=== PATIENT | male | born 1960 | race Caucasian/White ===

== ENCOUNTER → 2016-09-03 | Outpatient (CLI) | payer BC ==
[2016-09-03 10:55] LABS: CHLORIDE,CL 98 mmol/L (98-110); SODIUM,NA 131 mmol/L (136-146)
== END ==
LOC: MW.CHRC 09:50
PROVIDERS: ATTEND Family Medicine
DX: L03.115 Cellulitis of right lower limb (principal); R39.15 Urgency of urination; R11.2 Nausea with vomiting, unspecified
CPT/HCPCS: 36415; 80053; 81001; 85025; 87086; 87804

== ENCOUNTER 2017-08-13 17:08 | Inpatient (IN) | payer BC ==
[2017-08-13] MEDS ORDERED: Sodium Chloride 0.9% 10 ML Syringe FLUSH PRN (17:25)
[2017-08-13] MEDS ORDERED: Albuterol/Ipratropium 3.0-0.5 MG/3 ML Neb Soln NEB ONE (17:25)
[2017-08-13] MEDS ORDERED: Sodium Chloride 0.9% 2.5 ML Syringe FLUSH PRN (17:25)
--- NOTE | 2017-08-13 17:28 | EDM.PDOC ---
ED HPI GENERAL MEDICAL PROBLEM - General Chief Complaint: Respiratory Problem Stated Complaint: UPPER RESPIRATORY ISSUES Time Seen by Provider: 08/13/17 17:21 - History of Present Illness INITIAL COMMENTS - FREE TEXT/NARRATIVE: HISTORY AND PHYSICAL: History of present illness: Patient's 57-year-old white male presented internal respiratory tract infection over the last 7-10 days he states he had a sinus infection cough congestion and mild shortness of breath he has a scheduled appointment on Friday he denies fever chills chest pain nausea vomiting or other complaints patient is currently not a smoker but does have a [id number] history. Review of systems: As per history of present illness and below otherwise all systems reviewed and negative. Past medical history: As per history of present illness and as reviewed below otherwise noncontributory. Surgical history: As per history of present illness and as reviewed below otherwise noncontributory. Social history: No reported history of drug or alcohol abuse. Family history: As per history of present illness and as reviewed below otherwise noncontributory. Physical exam: HEENT: Atraumatic, normocephalic, pupils reactive, negative for conjunctival pallor or scleral icterus, mucous membranes moist, throat clear, neck supple, nontender, trachea midline. Congestion noted Lungs: Diminished slightly coarse, breath sounds equal bilaterally, chest nontender. Heart: S1S2, regular, negative for clicks, rubs, or JVD. Abdomen: Soft, nondistended, nontender. Negative for masses or hepatosplenomegaly. Negative for costovertebral tenderness. Pelvis: Stable nontender. Genitourinary: Deferred. Rectal: Deferred. Extremities: Atraumatic, negative for cords or calf pain. Neurovascular unremarkable. Neuro: Awake, alert, oriented. Cranial nerves II through XII unremarkable. Cerebellum unremarkable. Motor and sensory unremarkable throughout. Exam nonfocal. Diagnostics: CBC CMP ABG blood culture 2 influenza screen chest x-ray Therapeutics: Albuterol ipratropium nebulizer Impression: #1 sinusitis #2 pneumonitis Definitive disposition and diagnosis as appropriate pending reevaluation and review of above. headaches Pain Score (Numeric/FACES): 2 - Related Data Allergies Allergy/AdvReac Type Severity Reaction Status Date / Time No Known Allergies Allergy Verified 08/13/17 17:12 Home Meds: Home Meds amLODIPine [Norvasc] 5 mg PO DAILY 07/04/14 [History] Past Medical History HEENT History: Reports: None Cardiovascular History: Reports: Hypertension Respiratory History: Reports: None Gastrointestinal History: Reports: None Genitourinary History: Reports: None Musculoskeletal History: Reports: None Neurological History: Reports: None Psychiatric History: Reports: None Endocrine/Metabolic History: Reports: None Hematologic History: Reports: None Immunologic History: Reports: None Oncologic (Cancer) History: Reports: None Dermatologic History: Reports: None - Past Surgical History Head Surgeries/Procedures: Reports: None HEENT Surgical History: Reports: None Cardiovascular Surgical History: Reports: None Respiratory Surgical History: Reports: None GI Surgical History: Reports: None Male Surgical History: Reports: None Endocrine Surgical History: Reports: None Neurological Surgical History: Reports: None Musculoskeletal Surgical History: Reports: None Oncologic Surgical History: Reports: None Dermatological Surgical History: Reports: None Social & Family History - Family History Family Medical History: Noncontributory - Tobacco Use Smoking Status *Q: Never Smoker Years of Tobacco use: 30 Second Hand Smoke Exposure: No - Caffeine Use Caffeine Use: Reports: None - Recreational Drug Use Recreational Drug Use: No ED ROS GENERAL - Review of Systems Review Of Systems: ROS reveals no pertinent complaints other than HPI. ED EXAM, GENERAL - Physical Exam Exam: See Below (See dictation) Course - Vital Signs Last Recorded V/S: Last Vital Signs Temp 36.2 C 08/13/17 17:13 Pulse 92 08/13/17 17:13 Resp 20 08/13/17 17:13 BP 129/68 08/13/17 17:13 Pulse Ox 92 L 08/13/17 17:13 - Orders/Labs/Meds Orders: Active Orders 24 hr Category Date Time Status RT Aerosol Therapy [RC] ASDIRECTED Care 08/13/17 17:25 Active Chest 1V Frontal [CR] Stat Exams 08/13/17 17:24 Taken CULTURE BLOOD [BC] Stat Lab 08/13/17 17:38 Received CULTURE BLOOD [BC] Stat Lab 08/13/17 18:15 Received INFLUENZA A+B AG SCREEN [RM] Stat Lab 08/13/17 17:39 Ordered LACTATE WITH REFLEX [BG] Stat Lab 08/13/17 18:26 Ordered Levofloxacin/Dextrose 5%-Water [Levaquin in D5W 750 MG/ Med 08/13/17 18:26 Ordered 150 ML] 750 mg Premix Bag 1 bag IV ONETIME Sodium Chloride 0.9% [Saline Flush] Med 08/13/17 17:25 Active 10 ml FLUSH ASDIRECTED PRN Sodium Chloride 0.9% [Saline Flush] Med 08/13/17 17:25 Active 2.5 ml FLUSH ASDIRECTED PRN Blood Culture x2 Reflex Set [OM.PC] Stat Oth 08/13/17 17:24 Ordered Saline Lock Insert [OM.PC] Stat Oth 08/13/17 17:25 Ordered Medication Orders Levofloxacin/Dextrose 750 mg/ (Premix) 150 mls @ 100 mls/hr IV ONETIME ONE Stop: 08/13/17 19:55 Sodium Chloride (Saline Flush) 10 ml FLUSH ASDIRECTED PRN PRN Reason: Keep Vein Open Sodium Chloride (Saline Flush) 2.5 ml FLUSH ASDIRECTED PRN PRN Reason: Keep Vein Open Labs: Laboratory Tests 08/13/17 08/13/17 08/13/17 Range/Units 17:38 17:38 17:54 WBC 13.88 H (4.0-11.0) K/uL RBC 4.44 L (4.50-5.90) M/uL Hgb 14.3 (13.0-17.0) g/dL Hct 40.8 (38.0-50.0) % MCV 91.9 (80.0-98.0) fL MCH 32.2 H (27.0-32.0) pg MCHC 35.0 (31.0-37.0) g/dL RDW Std Deviation 45.7 (28.0-62.0) fl RDW Coeff of Ba 14 (11.0-15.0) % Plt Count 266 (150-400) K/uL MPV 9.50 (7.40-12.00) fL Neut % (Auto) 76.6 (48.0-80.0) % Lymph % (Auto) 14.2 L (16.0-40.0) % Hartley % (Auto) 5.4 (0.0-15.0) % Eos % (Auto) 3.4 (0.0-7.0) % Baso % (Auto) 0.4 (0.0-1.5) % Neut # (Auto) 10.6 H (1.4-5.7) K/uL Lymph # (Auto) 2.0 (0.6-2.4) K/uL Hartley # (Auto) 0.8 (0.0-0.8) K/uL Eos # (Auto) 0.5 (0.0-0.7) K/uL Baso # (Auto) 0.1 (0.0-0.1) K/uL Nucleated RBC % 0.0 /100WBC Nucleated RBCs # 0 K/uL ABG pH 7.464 H (7.35-7.45) ABG pCO2 37 (35-45) mmHG ABG pO2 55 L (75-100) mmHG ABG HCO3 27 H (22-26) mEq/L ABG Total CO2 23.5 ABG Base Excess 3.1 H (-2.0-2.0) Sodium 139 (136-148) mmol/L Potassium 4.2 (3.5-5.1) mmol/L Chloride 102 (98-107) mmol/L Carbon Dioxide 27.9 (21.0-32.0) mmol/L BUN 18 (7.0-18.0) mg/dL Creatinine 0.9 (0.8-1.3) mg/dL Est Cr Clr Drug Dosing 80.73 mL/min Estimated GFR (MDRD) > 60.0 ml/min Glucose 95 (74-106) mg/dL Calcium 9.3 (8.5-10.1) mg/dL Total Bilirubin 0.4 (0.2-1.0) mg/dL AST 29 (15-37) IU/L ALT 39 (14-63) IU/L Alkaline Phosphatase 78 (46-116) U/L Total Protein 7.6 (6.4-8.2) g/dL Albumin 3.0 L (3.4-5.0) g/dL Globulin 4.6 H (2.0-3.5) g/dL Albumin/Globulin Ratio 0.7 L (1.3-2.8) Meds: Medications Generic Name Dose Route Start Last Admin Trade Name Freq PRN Reason Stop Dose Admin Levofloxacin/Dextrose 750 mg/ 150 mls @ 100 mls/hr 08/13/17 18:26 Premix IV 08/13/17 19:55 ONETIME ONE Sodium Chloride 10 ml 08/13/17 17:25 Saline Flush FLUSH ASDIRECTED PRN Keep Vein Open Sodium Chloride 2.5 ml 08/13/17 17:25 Saline Flush FLUSH ASDIRECTED PRN Keep Vein Open Discontinued Medications Generic Name Dose Route Start Last Admin Trade Name Freq PRN Reason Stop Dose Admin Albuterol/Ipratropium 3 ml 08/13/17 17:25 08/13/17 17:58 Duoneb 3.0-0.5 Mg/3 Ml NEB 08/13/17 17:26 3 ml ONETIME ONE Administration Departure - Departure Time of Disposition: 18:31 Disposition: Admitted As Inpatient 65 Condition: Good Clinical Impression: Pneumonia, Hypoxemia - Discharge Information Referrals: Den Rincon MD [Primary Care Provider] - Forms: ED Department Discharge - My Orders Last 24 Hours: My Active Orders 08/13/17 17:24 Chest 1V Frontal [CR] Stat Blood Culture x2 Reflex Set [OM.PC] Stat 08/13/17 17:25 RT Aerosol Therapy [RC] ASDIRECTED Sodium Chloride 0.9% [Saline Flush] 10 ml FLUSH ASDIRECTED PRN Sodium Chloride 0.9% [Saline Flush] 2.5 ml FLUSH ASDIRECTED PRN Saline Lock Insert [OM.PC] Stat 08/13/17 17:38 CULTURE BLOOD [BC] Stat 08/13/17 17:39 INFLUENZA A+B AG SCREEN [RM] Stat 08/13/17 18:15 CULTURE BLOOD [BC] Stat 08/13/17 18:26 LACTATE WITH REFLEX [BG] Stat Levofloxacin/Dextrose 5%-Water [Levaquin in D5W 750 MG/150 ML] 750 mg Premix Bag 1 bag IV ONETIME - Assessment/Plan Last 24 Hours: My Active Orders 08/13/17 17:24 Chest 1V Frontal [CR] Stat Blood Culture x2 Reflex Set [OM.PC] Stat 08/13/17 17:25 RT Aerosol Therapy [RC] ASDIRECTED Sodium Chloride 0.9% [Saline Flush] 10 ml FLUSH ASDIRECTED PRN Sodium Chloride 0.9% [Saline Flush] 2.5 ml FLUSH ASDIRECTED PRN Saline Lock Insert [OM.PC] Stat 08/13/17 17:38 CULTURE BLOOD [BC] Stat 08/13/17 17:39 INFLUENZA A+B AG SCREEN [RM] Stat 08/13/17 18:15 CULTURE BLOOD [BC] Stat 08/13/17 18:26 LACTATE WITH REFLEX [BG] Stat Levofloxacin/Dextrose 5%-Water [Levaquin in D5W 750 MG/150 ML] 750 mg Premix Bag 1 bag IV ONETIME
[2017-08-13 18:09] LABS: CHLORIDE,CL 102 mmol/L (98-107); SODIUM,NA 139 mmol/L (136-148)
[2017-08-13] MEDS ORDERED: Levofloxacin/Dextrose 5%-Water 750 MG in Premix Bag 1 BAG IV ONE (18:26)
--- NOTE | 2017-08-13 23:35 | PCM.HP ---
H&P History of Present Illness - General Date of Service: 08/14/17 Admit Problem/Dx: Admission Diagnosis/Problem Admission Diagnosis/Problem Pneumonia Patient 57 y old man presented to hospital due to SOB and raspy sounds in his chest.His symptoms started 2 weeks ago when he had chills and body aches and low grade fever for 2 days. He took Mucinex and Tylenol and his symptoms improved ,but still persisted.Last week patient had maxillary and frontal sinusitis currently still c/o nasal congestion. Has cough productive of green phlegm , trouble breathing a, no reports of fever and chills right now. - History of Present Illness Duration of Symptoms: Reports: Week(s): headaches Pain Score (Numeric/FACES): 2 - Related Data Allergies/Adverse Reactions: Allergies Allergy/AdvReac Type Severity Reaction Status Date / Time No Known Allergies Allergy Verified 08/13/17 17:12 Home Medications: Home Meds amLODIPine [Norvasc] 5 mg PO DAILY 07/04/14 [History] Past Medical History HEENT History: Reports: None Cardiovascular History: Reports: Hypertension Respiratory History: Reports: None Gastrointestinal History: Reports: None Genitourinary History: Reports: None Musculoskeletal History: Reports: None Neurological History: Reports: None Psychiatric History: Reports: None Endocrine/Metabolic History: Reports: None Hematologic History: Reports: None Immunologic History: Reports: None Oncologic (Cancer) History: Reports: None Dermatologic History: Reports: None - Past Surgical History Head Surgeries/Procedures: Reports: None HEENT Surgical History: Reports: None Cardiovascular Surgical History: Reports: None Respiratory Surgical History: Reports: None GI Surgical History: Reports: None Male Surgical History: Reports: None Endocrine Surgical History: Reports: None Neurological Surgical History: Reports: None Musculoskeletal Surgical History: Reports: None Oncologic Surgical History: Reports: None Dermatological Surgical History: Reports: None Social & Family History - Family History Family Medical History: Noncontributory - Tobacco Use Smoking Status *Q: Former Smoker Years of Tobacco use: 30 Used Tobacco, but Quit: Yes Month/Year Tobacco Last Used: 18 months ago Second Hand Smoke Exposure: No - Caffeine Use Caffeine Use: Reports: None - Alcohol Use Days Per Week of Alcohol Use: 2 Number of Drinks Per Day: 2 Total Drinks Per Week: 4 Date of Last Drink: 08/07/17 - Recreational Drug Use Recreational Drug Use: No H&P Review of Systems - Review of Systems: Review Of Systems: See Below General: Reports: No Symptoms HEENT: Reports: Sinus Congestion Pulmonary: Reports: Shortness of Breath, Wheezing, Cough, Sputum (green) Cardiovascular: Reports: No Symptoms Gastrointestinal: Reports: No Symptoms Genitourinary: Reports: No Symptoms Musculoskeletal: Reports: No Symptoms Skin: Reports: No Symptoms Psychiatric: Reports: No Symptoms Neurological: Reports: No Symptoms Hematologic/Lymphatic: Reports: No Symptoms Immunologic: Reports: No Symptoms Exam - Exam Exam: See Below - Vital Signs Vital Signs: Last Vital Signs Temp 99.3 F 08/13/17 19:40 Pulse 93 08/13/17 19:40 Resp 20 08/13/17 19:40 BP 147/90 H 08/13/17 19:40 Pulse Ox 93 L 08/13/17 19:40 Weight: 286 lb 8 oz - Exam General: Alert, Oriented HEENT: Conjunctiva Clear Neck: Supple, Trachea Midline Cardiovascular: Regular Rate, Regular Rhythm, Normal S1, Normal S2 GI/Abdominal Exam: Normal Bowel Sounds, Soft, Non-Tender, No Organomegaly, No Distention, No Abnormal Bruit Back Exam: Normal Inspection Extremities: Normal Inspection Skin: Warm, Dry, Intact Neuro Extensive - Mental Status: Alert, Oriented x3 - Patient Data Lab Results Last 24 hrs: Laboratory Results - last 24 hr 08/13/17 08/13/17 08/13/17 Range/Units 17:38 17:38 17:38 WBC 13.88 H (4.0-11.0) K/uL RBC 4.44 L (4.50-5.90) M/uL Hgb 14.3 (13.0-17.0) g/dL Hct 40.8 (38.0-50.0) % MCV 91.9 (80.0-98.0) fL MCH 32.2 H (27.0-32.0) pg MCHC 35.0 (31.0-37.0) g/dL RDW Std Deviation 45.7 (28.0-62.0) fl RDW Coeff of Ba 14 (11.0-15.0) % Plt Count 266 (150-400) K/uL MPV 9.50 (7.40-12.00) fL Neut % (Auto) 76.6 (48.0-80.0) % Lymph % (Auto) 14.2 L (16.0-40.0) % Fergus % (Auto) 5.4 (0.0-15.0) % Eos % (Auto) 3.4 (0.0-7.0) % Baso % (Auto) 0.4 (0.0-1.5) % Neut # (Auto) 10.6 H (1.4-5.7) K/uL Lymph # (Auto) 2.0 (0.6-2.4) K/uL Fergus # (Auto) 0.8 (0.0-0.8) K/uL Eos # (Auto) 0.5 (0.0-0.7) K/uL Baso # (Auto) 0.1 (0.0-0.1) K/uL Nucleated RBC % 0.0 /100WBC Nucleated RBCs # 0 K/uL ABG pH (7.35-7.45) ABG pCO2 (35-45) mmHG ABG pO2 (75-100) mmHG ABG HCO3 (22-26) mEq/L ABG Total CO2 ABG Base Excess (-2.0-2.0) Lactate 0.6 (0.20-2.00) mmol/L Sodium 139 (136-148) mmol/L Potassium 4.2 (3.5-5.1) mmol/L Chloride 102 (98-107) mmol/L Carbon Dioxide 27.9 (21.0-32.0) mmol/L BUN 18 (7.0-18.0) mg/dL Creatinine 0.9 (0.8-1.3) mg/dL Est Cr Clr Drug Dosing 80.73 mL/min Estimated GFR (MDRD) > 60.0 ml/min Glucose 95 (74-106) mg/dL Calcium 9.3 (8.5-10.1) mg/dL Total Bilirubin 0.4 (0.2-1.0) mg/dL AST 29 (15-37) IU/L ALT 39 (14-63) IU/L Alkaline Phosphatase 78 (46-116) U/L B-Natriuretic Peptide (<100) PG/ML Total Protein 7.6 (6.4-8.2) g/dL Albumin 3.0 L (3.4-5.0) g/dL Globulin 4.6 H (2.0-3.5) g/dL Albumin/Globulin Ratio 0.7 L (1.3-2.8) 08/13/17 08/13/17 Range/Units 17:38 17:54 WBC (4.0-11.0) K/uL RBC (4.50-5.90) M/uL Hgb (13.0-17.0) g/dL Hct (38.0-50.0) % MCV (80.0-98.0) fL MCH (27.0-32.0) pg MCHC (31.0-37.0) g/dL RDW Std Deviation (28.0-62.0) fl RDW Coeff of Ba (11.0-15.0) % Plt Count (150-400) K/uL MPV (7.40-12.00) fL Neut % (Auto) (48.0-80.0) % Lymph % (Auto) (16.0-40.0) % Fergus % (Auto) (0.0-15.0) % Eos % (Auto) (0.0-7.0) % Baso % (Auto) (0.0-1.5) % Neut # (Auto) (1.4-5.7) K/uL Lymph # (Auto) (0.6-2.4) K/uL Fergus # (Auto) (0.0-0.8) K/uL Eos # (Auto) (0.0-0.7) K/uL Baso # (Auto) (0.0-0.1) K/uL Nucleated RBC % /100WBC Nucleated RBCs # K/uL ABG pH 7.464 H (7.35-7.45) ABG pCO2 37 (35-45) mmHG ABG pO2 55 L (75-100) mmHG ABG HCO3 27 H (22-26) mEq/L ABG Total CO2 23.5 ABG Base Excess 3.1 H (-2.0-2.0) Lactate (0.20-2.00) mmol/L Sodium (136-148) mmol/L Potassium (3.5-5.1) mmol/L Chloride (98-107) mmol/L Carbon Dioxide (21.0-32.0) mmol/L BUN (7.0-18.0) mg/dL Creatinine (0.8-1.3) mg/dL Est Cr Clr Drug Dosing mL/min Estimated GFR (MDRD) ml/min Glucose (74-106) mg/dL Calcium (8.5-10.1) mg/dL Total Bilirubin (0.2-1.0) mg/dL AST (15-37) IU/L ALT (14-63) IU/L Alkaline Phosphatase (46-116) U/L B-Natriuretic Peptide 17 (<100) PG/ML Total Protein (6.4-8.2) g/dL Albumin (3.4-5.0) g/dL Globulin (2.0-3.5) g/dL Albumin/Globulin Ratio (1.3-2.8) Result Diagrams: 08/14/17 05:30 08/14/17 05:30 Yash Results Last 24 hrs: Microbiology 08/13/17 17:39 Influenza Type A Antigen Screen - Final Nasopharyngeal Swab NEGATIVE INFLUENZA A VIRUS AG Influenza Type B Antigen Screen - Final NEGATIVE INFLUENZA B VIRUS AG Imaging Impressions Last 24 hrs: CXr : FRANCIS infiltrate EKG INTERPRETATION EKG Date: 08/13/17 Rhythm: NSR - Problem List (1) Community acquired bacterial pneumonia SNOMED Code(s): 485548989, 135541948 ICD Code: J15.9 - UNSPECIFIED BACTERIAL PNEUMONIA Status: Acute Current Visit: Yes (2) History of tobacco use SNOMED Code(s): 2632649945541 ICD Code: Z87.891 - PERSONAL HISTORY OF NICOTINE DEPENDENCE Status: Acute Current Visit: Yes (3) Morbid obesity SNOMED Code(s): 559987083, 98590634809986 ICD Code: E66.01 - MORBID (SEVERE) OBESITY DUE TO EXCESS CALORIES Status: Acute Current Visit: Yes (4) Wheezing SNOMED Code(s): 23095014 ICD Code: R06.2 - WHEEZING Status: Acute Current Visit: Yes (5) History of tobacco abuse SNOMED Code(s): 7455086415700, 7547406687170 ICD Code: Z87.891 - PERSONAL HISTORY OF NICOTINE DEPENDENCE Status: Acute Current Visit: Yes (6) Acute respiratory failure with hypoxia SNOMED Code(s): 47610377, 214817052 ICD Code: J96.01 - ACUTE RESPIRATORY FAILURE WITH HYPOXIA Status: Acute Current Visit: Yes (7) Nasal congestion SNOMED Code(s): 34236294 ICD Code: R09.81 - NASAL CONGESTION Status: Acute Current Visit: Yes Problem List Initiated/Reviewed/Updated: Yes Orders Last 24hrs: Active Orders 24 hr Category Date Time Status Patient Status [ADT] Stat ADT 08/13/17 18:50 Active EKG Documentation Completion [RC] STAT Care 08/13/17 18:32 Active RT Aerosol Therapy [RC] ASDIRECTED Care 08/13/17 17:25 Active Chest 1V Frontal [CR] Stat Exams 08/13/17 17:24 Taken CULTURE BLOOD [BC] Stat Lab 08/13/17 17:38 Received CULTURE BLOOD [BC] Stat Lab 08/13/17 18:15 Received INFLUENZA A+B AG SCREEN [RM] Stat Lab 08/13/17 17:39 Ordered Sodium Chloride 0.9% [Saline Flush] Med 08/13/17 17:25 Active 10 ml FLUSH ASDIRECTED PRN Sodium Chloride 0.9% [Saline Flush] Med 08/13/17 17:25 Active 2.5 ml FLUSH ASDIRECTED PRN Blood Culture x2 Reflex Set [OM.PC] Stat Oth 08/13/17 17:24 Ordered Saline Lock Insert [OM.PC] Stat Oth 08/13/17 17:25 Ordered Medication Orders Sodium Chloride (Saline Flush) 10 ml FLUSH ASDIRECTED PRN PRN Reason: Keep Vein Open Sodium Chloride (Saline Flush) 2.5 ml FLUSH ASDIRECTED PRN PRN Reason: Keep Vein Open A/P ACUTE HYPOXIC RESPIRATORY FAILURE COMMUNITY ACQUIRED PNEUMONIA Morbid obesity WHEEZING -LIKELY COPD NASAL CONGESTION PLAN WILL ADMIT PATIENT TO MEDICAL FLOOR , WILL START PATIENT ON LEVOFLOXACIN 750 MG IV Q 24 H , DUONEB NEBULIZER TREATMENT 2 PUFF INH Q 4H PRN FOR SOB, WHEEZING , SOLUMEDROL 40 MG IV Q 12H , ADVAIR 250/50 2 PUFFS INH Q 12H , F/UP BLOOD CULTURE, SPUTUM CULTURE AND GRAM STAIN, FLUTICASONE NASAL SPRAY FOR NASAL CONGESTION
[2017-08-14] MEDS ORDERED: Temazepam 15 MG Cap PO PRN (05:39)
[2017-08-14] MEDS ORDERED: Albuterol/Ipratropium 3.0-0.5 MG/3 ML Neb Soln NEB PRN (05:46)
[2017-08-14] MEDS: Hydrocortisone Sodium Succinate 100 MG/2 ML SDV IVPUSH SCH ×2 (06:20→18:05)
[2017-08-14] MEDS: Enoxaparin 40 MG/0.4 ML Syringe SUBCUT SCH (06:22)
[2017-08-14 06:27] LABS: CHLORIDE,CL 105 mmol/L (98-107); SODIUM,NA 140 mmol/L (136-148)
[2017-08-14] MEDS: Fluticasone/Salmeterol 250-50 MCG Inhalation Powder 14/Diskus INH SCH ×2 (07:01→20:45)
[2017-08-14] MEDS: Fluticasone Propionate Nasal Spray 16 GM Bottle NASBOTH SCH (08:50)
[2017-08-14] MEDS: amLODIPine 5 MG Tab PO SCH (08:52)
--- NOTE | 2017-08-14 08:58 | PCM.PN ---
- General Info Date of Service: 08/14/17 Admission Dx/Problem (Free Text): Admission Diagnosis/Problem Admission Diagnosis/Problem Pneumonia Subjective Update: Feeling better this morning, still feeling congested, productive cough with yellow to green phlegm. No chest pain. No dyspnea. Still requiring oxygen. Functional Status: Reports: Pain Controlled, Tolerating Diet, Ambulating, Urinating - Review of Systems General: Reports: Malaise. Denies: Fever, Weakness HEENT: Reports: Sinus Congestion, Rhinitis. Denies: Headaches, Sore Throat, Visual Changes Pulmonary: Reports: Cough, Sputum. Denies: Shortness of Breath, Hemoptysis, Wheezing Cardiovascular: Reports: No Symptoms. Denies: Chest Pain, Palpitations Gastrointestinal: Reports: No Symptoms. Denies: Abdominal Pain, Diarrhea, Nausea, Vomiting Genitourinary: Reports: No Symptoms. Denies: Dysuria, Frequency Musculoskeletal: Reports: No Symptoms Skin: Reports: No Symptoms Neurological: Reports: No Symptoms Psychiatric: Reports: No Symptoms - Patient Data Vitals - Most Recent: Last Vital Signs Temp 98.2 F 08/14/17 08:38 Pulse 73 08/14/17 08:38 Resp 18 08/14/17 08:38 BP 135/75 08/14/17 08:52 Pulse Ox 92 L 08/14/17 08:38 Weight - Most Recent: 129.954 kg I&O - Last 24 Hours: Intake & Output 08/13/17 08/14/17 08/14/17 22:59 06:59 14:59 Intake Total 250 Output Total 300 Balance -50 Lab Results Last 24 Hours: Laboratory Results - last 24 hr 08/13/17 08/13/17 08/13/17 Range/Units 17:38 17:38 17:38 WBC 13.88 H (4.0-11.0) K/uL RBC 4.44 L (4.50-5.90) M/uL Hgb 14.3 (13.0-17.0) g/dL Hct 40.8 (38.0-50.0) % MCV 91.9 (80.0-98.0) fL MCH 32.2 H (27.0-32.0) pg MCHC 35.0 (31.0-37.0) g/dL RDW Std Deviation 45.7 (28.0-62.0) fl RDW Coeff of Ba 14 (11.0-15.0) % Plt Count 266 (150-400) K/uL MPV 9.50 (7.40-12.00) fL Neut % (Auto) 76.6 (48.0-80.0) % Lymph % (Auto) 14.2 L (16.0-40.0) % [place] % (Auto) 5.4 (0.0-15.0) % Eos % (Auto) 3.4 (0.0-7.0) % Baso % (Auto) 0.4 (0.0-1.5) % Neut # (Auto) 10.6 H (1.4-5.7) K/uL Lymph # (Auto) 2.0 (0.6-2.4) K/uL [place] # (Auto) 0.8 (0.0-0.8) K/uL Eos # (Auto) 0.5 (0.0-0.7) K/uL Baso # (Auto) 0.1 (0.0-0.1) K/uL Nucleated RBC % 0.0 /100WBC Nucleated RBCs # 0 K/uL ABG pH (7.35-7.45) ABG pCO2 (35-45) mmHG ABG pO2 (75-100) mmHG ABG HCO3 (22-26) mEq/L ABG Total CO2 ABG Base Excess (-2.0-2.0) Lactate 0.6 (0.20-2.00) mmol/L Sodium 139 (136-148) mmol/L Potassium 4.2 (3.5-5.1) mmol/L Chloride 102 (98-107) mmol/L Carbon Dioxide 27.9 (21.0-32.0) mmol/L BUN 18 (7.0-18.0) mg/dL Creatinine 0.9 (0.8-1.3) mg/dL Est Cr Clr Drug Dosing 80.73 mL/min Estimated GFR (MDRD) > 60.0 ml/min Glucose 95 (74-106) mg/dL Calcium 9.3 (8.5-10.1) mg/dL Total Bilirubin 0.4 (0.2-1.0) mg/dL AST 29 (15-37) IU/L ALT 39 (14-63) IU/L Alkaline Phosphatase 78 (46-116) U/L B-Natriuretic Peptide (<100) PG/ML Total Protein 7.6 (6.4-8.2) g/dL Albumin 3.0 L (3.4-5.0) g/dL Globulin 4.6 H (2.0-3.5) g/dL Albumin/Globulin Ratio 0.7 L (1.3-2.8) 08/13/17 08/13/17 08/14/17 Range/Units 17:38 17:54 05:30 WBC 11.83 H (4.0-11.0) K/uL RBC 4.18 L (4.50-5.90) M/uL Hgb 13.5 (13.0-17.0) g/dL Hct 38.9 (38.0-50.0) % MCV 93.1 (80.0-98.0) fL MCH 32.3 H (27.0-32.0) pg MCHC 34.7 (31.0-37.0) g/dL RDW Std Deviation 46.2 (28.0-62.0) fl RDW Coeff of Ba 14 (11.0-15.0) % Plt Count 234 (150-400) K/uL MPV 9.50 (7.40-12.00) fL Neut % (Auto) 74.9 (48.0-80.0) % Lymph % (Auto) 15.9 L (16.0-40.0) % [place] % (Auto) 4.9 (0.0-15.0) % Eos % (Auto) 3.7 (0.0-7.0) % Baso % (Auto) 0.6 (0.0-1.5) % Neut # (Auto) 8.9 H (1.4-5.7) K/uL Lymph # (Auto) 1.9 (0.6-2.4) K/uL [place] # (Auto) 0.6 (0.0-0.8) K/uL Eos # (Auto) 0.4 (0.0-0.7) K/uL Baso # (Auto) 0.1 (0.0-0.1) K/uL Nucleated RBC % 0.0 /100WBC Nucleated RBCs # 0 K/uL ABG pH 7.464 H (7.35-7.45) ABG pCO2 37 (35-45) mmHG ABG pO2 55 L (75-100) mmHG ABG HCO3 27 H (22-26) mEq/L ABG Total CO2 23.5 ABG Base Excess 3.1 H (-2.0-2.0) Lactate (0.20-2.00) mmol/L Sodium (136-148) mmol/L Potassium (3.5-5.1) mmol/L Chloride (98-107) mmol/L Carbon Dioxide (21.0-32.0) mmol/L BUN (7.0-18.0) mg/dL Creatinine (0.8-1.3) mg/dL Est Cr Clr Drug Dosing mL/min Estimated GFR (MDRD) ml/min Glucose (74-106) mg/dL Calcium (8.5-10.1) mg/dL Total Bilirubin (0.2-1.0) mg/dL AST (15-37) IU/L ALT (14-63) IU/L Alkaline Phosphatase (46-116) U/L B-Natriuretic Peptide 17 (<100) PG/ML Total Protein (6.4-8.2) g/dL Albumin (3.4-5.0) g/dL Globulin (2.0-3.5) g/dL Albumin/Globulin Ratio (1.3-2.8) 08/14/17 Range/Units 05:30 WBC (4.0-11.0) K/uL RBC (4.50-5.90) M/uL Hgb (13.0-17.0) g/dL Hct (38.0-50.0) % MCV (80.0-98.0) fL MCH (27.0-32.0) pg MCHC (31.0-37.0) g/dL RDW Std Deviation (28.0-62.0) fl RDW Coeff of Ba (11.0-15.0) % Plt Count (150-400) K/uL MPV (7.40-12.00) fL Neut % (Auto) (48.0-80.0) % Lymph % (Auto) (16.0-40.0) % [place] % (Auto) (0.0-15.0) % Eos % (Auto) (0.0-7.0) % Baso % (Auto) (0.0-1.5) % Neut # (Auto) (1.4-5.7) K/uL Lymph # (Auto) (0.6-2.4) K/uL [place] # (Auto) (0.0-0.8) K/uL Eos # (Auto) (0.0-0.7) K/uL Baso # (Auto) (0.0-0.1) K/uL Nucleated RBC % /100WBC Nucleated RBCs # K/uL ABG pH (7.35-7.45) ABG pCO2 (35-45) mmHG ABG pO2 (75-100) mmHG ABG HCO3 (22-26) mEq/L ABG Total CO2 ABG Base Excess (-2.0-2.0) Lactate (0.20-2.00) mmol/L Sodium 140 (136-148) mmol/L Potassium 3.9 (3.5-5.1) mmol/L Chloride 105 (98-107) mmol/L Carbon Dioxide 26.5 (21.0-32.0) mmol/L BUN 14 (7.0-18.0) mg/dL Creatinine 0.8 (0.8-1.3) mg/dL Est Cr Clr Drug Dosing 90.83 mL/min Estimated GFR (MDRD) > 60.0 ml/min Glucose 107 H (74-106) mg/dL Calcium 8.9 (8.5-10.1) mg/dL Total Bilirubin (0.2-1.0) mg/dL AST (15-37) IU/L ALT (14-63) IU/L Alkaline Phosphatase (46-116) U/L B-Natriuretic Peptide (<100) PG/ML Total Protein (6.4-8.2) g/dL Albumin (3.4-5.0) g/dL Globulin (2.0-3.5) g/dL Albumin/Globulin Ratio (1.3-2.8) Yash Results Last 24 Hours: Microbiology 08/13/17 17:39 Influenza Type A Antigen Screen - Final Nasopharyngeal Swab NEGATIVE INFLUENZA A VIRUS AG Influenza Type B Antigen Screen - Final NEGATIVE INFLUENZA B VIRUS AG Med Orders - Current: Current Medications Albuterol/Ipratropium (Duoneb 3.0-0.5 Mg/3 Ml) 3 ml NEB Q4HRRT PRN PRN Reason: wheezing , sob Amlodipine Besylate (Norvasc) 5 mg PO DAILY [facility] Last Admin: 08/14/17 08:52 Dose: 5 mg Enoxaparin Sodium (Lovenox) 40 mg SUBCUT Q24H [facility] Last Admin: 08/14/17 06:22 Dose: 40 mg Fluticasone Propionate (Flonase) 0 gm NASBOTH DAILY [facility] Last Admin: 08/14/17 08:50 Dose: 1 spray Hydrocortisone Sodium Succinate (Solu-Cortef) 40 mg IVPUSH Q12H [facility] Last Admin: 08/14/17 06:20 Dose: 40 mg Levofloxacin/Dextrose 750 mg/ (Premix) 150 mls @ 100 mls/hr IV Q24H [facility] Fluticasone/Salmeterol (Advair Diskus 250-50) 1 puff INH BIDRT [facility] Last Admin: 08/14/17 07:01 Dose: 1 puff Senna/Docusate Sodium (Senna Plus) 1 tab PO BID PRN PRN Reason: Constipation Sodium Chloride (Saline Flush) 10 ml FLUSH ASDIRECTED PRN PRN Reason: Keep Vein Open Sodium Chloride (Saline Flush) 2.5 ml FLUSH ASDIRECTED PRN PRN Reason: Keep Vein Open Temazepam (Restoril) 15 mg PO BEDTIME PRN PRN Reason: Sleep Discontinued Medications Albuterol/Ipratropium (Duoneb 3.0-0.5 Mg/3 Ml) 3 ml NEB ONETIME ONE Stop: 08/13/17 17:26 Last Admin: 08/13/17 17:58 Dose: 3 ml Levofloxacin/Dextrose 750 mg/ (Premix) 150 mls @ 100 mls/hr IV ONETIME ONE Stop: 08/13/17 19:55 Last Admin: 08/13/17 18:36 Dose: 100 mls/hr - Exam Quality Assessment: Supplemental Oxygen (2-3 L NC), DVT Prophylaxis General: Alert, Oriented, Cooperative, No Acute Distress Neck: Supple Lungs: Normal Respiratory Effort, Crackles (fine crackles to L) Cardiovascular: Regular Rate, Regular Rhythm GI/Abdominal Exam: Normal Bowel Sounds, Soft, Non-Tender, No Organomegaly, No Distention, No Abnormal Bruit, No Mass, Pelvis Stable, Other (obese abdomen) Back Exam: Normal Inspection, Full Range of Motion Extremities: Normal Inspection, Normal Range of Motion, Non-Tender, No Pedal Edema, Normal Capillary Refill Neurological: No New Focal Deficit Psy/Mental Status: Alert, Normal Affect, Normal Mood - Problem List & Annotations (1) Hypoxemia SNOMED Code(s): 095823509 Code(s): R09.02 - HYPOXEMIA Status: Acute Current Visit: Yes (2) Pneumonia SNOMED Code(s): 613269840 Code(s): J18.9 - PNEUMONIA, UNSPECIFIED ORGANISM Status: Acute Current Visit: Yes Qualifiers: Pneumonia type: due to unspecified organism Laterality: left Lung location: lower lobe of lung Qualified Code(s): J18.1 - Lobar pneumonia, unspecified organism (3) Sinusitis SNOMED Code(s): 38440709 Code(s): J32.9 - CHRONIC SINUSITIS, UNSPECIFIED Status: Acute Current Visit: Yes Qualifiers: Chronicity: acute (4) HTN (hypertension) SNOMED Code(s): 30722546 Code(s): I10 - ESSENTIAL (PRIMARY) HYPERTENSION Status: Chronic Current Visit: Yes Qualifiers: Hypertension type: essential hypertension Qualified Code(s): I10 - Essential (primary) hypertension (5) History of tobacco use SNOMED Code(s): 8107098189207 Code(s): Z87.891 - PERSONAL HISTORY OF NICOTINE DEPENDENCE Status: Acute Current Visit: Yes (6) Obesity SNOMED Code(s): 720819228, 356496760 Code(s): E66.9 - OBESITY, UNSPECIFIED Status: Chronic Current Visit: Yes Qualifiers: Obesity classification: adult class 3 (BMI >= 40) Body mass index: BMI 45.0 -49.9 - Problem List Review Problem List Initiated/Reviewed/Updated: Yes - Plan Plan:: This 57 year old male damitted with pneumonia and hypoxemia 1. Pneumonia: leukocytosis improving. L hilum consolidation. Continue Levaquin 750 mg. Duonebs as needed and encouraged IS use with ambulation. Sputum gram stain reveals gram + cocci in pairs, gram + rods, and few gram - rods. YASH pending. 2. Hypoxemia: Still requiring oxygen 2-3 L to keep sats above 90%. Will monitor. Possible COPD with hx of tobacco use. No wheezing this morning, continue Solu-cortef today, consider decreasing tomorrow. Advair 250/50 BID. May benefit from PFTs as outpatient 3. Sinusitis: Levaquin will cover as above. Continue Flonase. Reports headache and congestion improved. 4. HTN: Stable, Continue home medications. VTE prophylaxis: Lovenox Dispo: 1-2 days pending improvement.
--- NOTE | 2017-08-14 09:38 | CR ---
EXAM DATE: 08/13/17 PATIENT'S AGE: 57 [facility] Facility: [place], [place] Site . Site : 1960 Study: XRay Chest [id number]/18/2018 6:14:48 PM Ordering Physician: Shantal Armando Final Report: HISTORY: Pain, shortness of breath. FINDINGS: AP portable chest radiograph demonstrates a normal cardiac silhouette. Pulmonary vasculature is free of cephalization. There may be subtle infiltrate lateral to the left hilum. No pleural effusion is seen. IMPRESSION: Questionable minimal infiltrate lateral to the left hilum. Dictated by Tootie Ramos MD @ 08/13/2017 6:37:43 PM Dictated by: Tootie Ramos MD @ 08/13/2017 18:37:58 (Electronic Signature) Report Signed by Proxy. [facility] SYSTEMHayes
[2017-08-14] MEDS ORDERED: Levofloxacin/Dextrose 5%-Water 750 MG in Premix Bag 1 BAG IV SCH (18:00)
[2017-08-15] MEDS: Fluticasone/Salmeterol 250-50 MCG Inhalation Powder 14/Diskus INH SCH (05:56)
[2017-08-15] MEDS: Enoxaparin 40 MG/0.4 ML Syringe SUBCUT SCH (05:57)
[2017-08-15] MEDS: Hydrocortisone Sodium Succinate 100 MG/2 ML SDV IVPUSH SCH (05:58)
[2017-08-15 06:47] LABS: CHLORIDE,CL 107 mmol/L (98-107); SODIUM,NA 141 mmol/L (136-148)
[2017-08-15] MEDS: Fluticasone Propionate Nasal Spray 16 GM Bottle NASBOTH SCH (08:31)
[2017-08-15 08:33] VITALS: BP 128/72
[2017-08-15] MEDS: amLODIPine 5 MG Tab PO SCH (08:33)
--- NOTE | 2017-08-15 09:06 | PCM.DCSUM1 ---
Discharge Summary - Hospital Course Brief History: This 57 michelle old man with pmh of HTN and obesity presented to ED due to SOB and raspy sounds in his chest. His symptoms started 2 weeks ago when he had chills and body aches and low grade fever for 2 days. He took Mucinex and Tylenol and his symptoms improved, but still persisted. Last week patient had maxillary and frontal sinusitis currently still c/o nasal congestion. Has cough productive of green phlegm, trouble breathing. No reports of fever and chills right on admission. - Discharge Data Discharge Date: 08/15/17 Discharge Disposition: Home, Self-Care 01 Condition: Good - Discharge Diagnosis/Problem(s) (1) Pneumonia SNOMED Code(s): 505114082 ICD Code: J18.9 - PNEUMONIA, UNSPECIFIED ORGANISM Status: Acute Qualifiers: Pneumonia type: due to unspecified organism Laterality: left Lung location: lower lobe of lung Qualified Code(s): J18.1 - Lobar pneumonia, unspecified organism (2) Hypoxemia SNOMED Code(s): 356482313 ICD Code: R09.02 - HYPOXEMIA Status: Resolved (3) Sinusitis SNOMED Code(s): 47069638 ICD Code: J32.9 - CHRONIC SINUSITIS, UNSPECIFIED Status: Acute Qualifiers: Chronicity: acute (4) HTN (hypertension) SNOMED Code(s): 75145501 ICD Code: I10 - ESSENTIAL (PRIMARY) HYPERTENSION Status: Chronic Qualifiers: Hypertension type: essential hypertension Qualified Code(s): I10 - Essential (primary) hypertension (5) History of tobacco use SNOMED Code(s): 9068796382124 ICD Code: Z87.891 - PERSONAL HISTORY OF NICOTINE DEPENDENCE Status: Acute (6) Obesity SNOMED Code(s): 326516030, 696715593 ICD Code: E66.9 - OBESITY, UNSPECIFIED Status: Chronic Qualifiers: Obesity classification: adult class 3 (BMI >= 40) Body mass index: BMI 45.0 -49.9 - Patient Summary/Data Consults: Consultations 08/14/17 05:39 Respiratory Care Assess and Treatment [CONS] Routine - Patient Instructions Diet: Heart Healthy Diet Activity: As Tolerated, No Strenuous Activities, Rest and Relax Today Showering/Bathing: May Shower Notify Provider of: Fever, Increased Pain, Swelling and Redness, Drainage, Nausea and/or Vomiting - Discharge Plan Prescriptions/Med Rec: Fluticasone/Salmeterol [Advair 250-50] 1 puff INH BIDRT #1 diskus Levofloxacin [Levaquin] 750 mg PO DAILY #5 tab Prednisone [IMW: predniSONE] 40 mg PO WITHBREAKFAST #6 tab Home Medications: Home Meds amLODIPine [Norvasc] 5 mg PO DAILY 07/04/14 [History] Fluticasone Propionate [Flonase] 0 gm NASBOTH DAILY bottle 08/15/17 [Rx] Fluticasone/Salmeterol [Advair 250-50] 1 puff INH BIDRT #1 diskus 08/15/17 [Rx] Levofloxacin [Levaquin] 750 mg PO DAILY #5 tab 08/15/17 [Rx] Prednisone [IMW: predniSONE] 40 mg PO WITHBREAKFAST #6 tab 08/15/17 [Rx] Patient Handouts: Levofloxacin tablets, Fluticasone inhalation aerosol, Prednisone tablets, Community-Acquired Pneumonia, Adult, [id number] Referrals: Den Rincon MD [Primary Care Provider] - 08/28/17 9:00 am - Discharge Summary/Plan Comment DC Time >30 min.: No Discharge Summary/Plan Comment: Discharge Diagnoses: CAP Hypoxemia- resolved Sinusitis Possible COPD HTN Obesity Vanessa was admitted and treated for CAP, hypoxemia and acute sinusitis. He was treated with Levaquin and Duonebs. There was noticeable wheezing on admission and with tobacco use history, there is probably COPD. He reports he has never been tested, doesn't usually have dyspnea but did notice some weight gain since he quit smoking and feels he has been more short of breath due to increase in weight. Once pneumonia clears, he may benefit from PFTS. He was started on Solu- cortef and Advair on admission. Leukocytosis improved. No fevers and sinus congestion improved with Flonase. He was weaned off oxygen and is feeling much better today and is asking to go home. NO further wheezing. He will be discharged home with 5 more days of Levaquin, 3 more days of Prednisone 40 mg daily. Continue with Flonase and Advair for now. He is to return to the ED or clinic if dyspnea, fevers or his symptoms return or worsen. He verbalizes understanding. He will have follow up with PCP, Dr Rincon on Friday - General Info Date of Service: 08/15/17 Admission Dx/Problem (Free Text: Admission Diagnosis/Problem Admission Diagnosis/Problem Pneumonia Patient 57 y old man presented to hospital due to SOB and raspy sounds in his chest.His symptoms started 2 weeks ago when he had chills and body aches and low grade fever for 2 days. He took Mucinex and Tylenol and his symptoms improved ,but still persisted.Last week patient had maxillary and frontal sinusitis currently still c/o nasal congestion. Has cough productive of green phlegm , trouble breathing a, no reports of fever and chills right now. Subjective Update: Feeling much better today, no wheezing or dyspnea. No fevers or chest pain. Sinus congestion much improved and no headache. Asking to be discharged home. Functional Status: Reports: Pain Controlled, Tolerating Diet, Ambulating, Urinating - Review of Systems General: Reports: No Symptoms. Denies: Fever, Weakness, Malaise HEENT: Reports: Sinus Congestion (much improved, some continues). Denies: Sore Throat Pulmonary: Reports: Cough, Sputum. Denies: Shortness of Breath, Hemoptysis, Wheezing Cardiovascular: Reports: No Symptoms. Denies: Chest Pain, Palpitations, Dyspnea on Exertion, Lightheadedness Gastrointestinal: Reports: No Symptoms. Denies: Abdominal Pain, Nausea, Vomiting Genitourinary: Reports: No Symptoms Neurological: Reports: No Symptoms Psychiatric: Reports: No Symptoms - Patient Data Vitals - Most Recent: Last Vital Signs Temp 97.1 F 08/15/17 08:00 Pulse 78 08/15/17 08:00 Resp 18 08/15/17 08:00 BP 128/72 08/15/17 08:33 Pulse Ox 92 L 08/15/17 08:00 Weight - Most Recent: 129.954 kg I&O - Last 24 hours: Intake & Output 08/14/17 08/15/17 08/15/17 22:59 06:59 14:59 Intake Total 950 500 Output Total 400 700 Balance 550 -200 Lab Results - Last 24 hrs: Laboratory Results - last 24 hr 08/15/17 08/15/17 Range/Units 05:45 05:45 WBC 11.20 H (4.0-11.0) K/uL RBC 4.22 L (4.50-5.90) M/uL Hgb 13.8 (13.0-17.0) g/dL Hct 39.1 (38.0-50.0) % MCV 92.7 (80.0-98.0) fL MCH 32.7 H (27.0-32.0) pg MCHC 35.3 (31.0-37.0) g/dL RDW Std Deviation 45.3 (28.0-62.0) fl RDW Coeff of Ba 14 (11.0-15.0) % Plt Count 235 (150-400) K/uL MPV 10.00 (7.40-12.00) fL Nucleated RBC % 0.0 /100WBC Nucleated RBCs # 0 K/uL Sodium 141 (136-148) mmol/L Potassium 4.4 (3.5-5.1) mmol/L Chloride 107 (98-107) mmol/L Carbon Dioxide 27.0 (21.0-32.0) mmol/L BUN 15 (7.0-18.0) mg/dL Creatinine 0.7 L (0.8-1.3) mg/dL Est Cr Clr Drug Dosing 103.80 mL/min Estimated GFR (MDRD) > 60.0 ml/min Glucose 100 (74-106) mg/dL Calcium 8.6 (8.5-10.1) mg/dL JOELLE Results - Last 24 hrs: Microbiology 08/13/17 18:15 Aerobic Blood Culture - Preliminary Blood - Venous - Lab Draw NO GROWTH AFTER 1 DAY Anaerobic Blood Culture - Preliminary NO GROWTH AFTER 1 DAY 08/13/17 17:38 Aerobic Blood Culture - Preliminary Blood - Venous NO GROWTH AFTER 1 DAY Anaerobic Blood Culture - Preliminary NO GROWTH AFTER 1 DAY 08/14/17 07:05 Gram Stain - Preliminary Sputum - Expectorated Med Orders - Current: Current Medications Albuterol/Ipratropium (Duoneb 3.0-0.5 Mg/3 Ml) 3 ml NEB Q4HRRT PRN PRN Reason: wheezing , sob Amlodipine Besylate (Norvasc) 5 mg PO DAILY [facility] Last Admin: 08/15/17 08:33 Dose: 5 mg Enoxaparin Sodium (Lovenox) 40 mg SUBCUT Q24H [facility] Last Admin: 08/15/17 05:57 Dose: 40 mg Fluticasone Propionate (Flonase) 0 gm NASBOTH DAILY [facility] Last Admin: 08/15/17 08:31 Dose: 1 spray Levofloxacin/Dextrose 750 mg/ (Premix) 150 mls @ 100 mls/hr IV Q24H [facility] Last Admin: 08/14/17 18:05 Dose: 100 mls/hr Fluticasone/Salmeterol (Advair Diskus 250-50) 1 puff INH BIDRT [facility] Last Admin: 08/15/17 05:56 Dose: 1 puff Senna/Docusate Sodium (Senna Plus) 1 tab PO BID PRN PRN Reason: Constipation Sodium Chloride (Saline Flush) 10 ml FLUSH ASDIRECTED PRN PRN Reason: Keep Vein Open Sodium Chloride (Saline Flush) 2.5 ml FLUSH ASDIRECTED PRN PRN Reason: Keep Vein Open Temazepam (Restoril) 15 mg PO BEDTIME PRN PRN Reason: Sleep Discontinued Medications Albuterol/Ipratropium (Duoneb 3.0-0.5 Mg/3 Ml) 3 ml NEB ONETIME ONE Stop: 08/13/17 17:26 Last Admin: 08/13/17 17:58 Dose: 3 ml Hydrocortisone Sodium Succinate (Solu-Cortef) 40 mg IVPUSH Q12H [facility] Last Admin: 08/15/17 05:58 Dose: 40 mg Levofloxacin/Dextrose 750 mg/ (Premix) 150 mls @ 100 mls/hr IV ONETIME ONE Stop: 08/13/17 19:55 Last Admin: 08/13/17 18:36 Dose: 100 mls/hr - Exam Quality Assessment: Reports: DVT Prophylaxis. Denies: Supplemental Oxygen General: Reports: Alert, Oriented, Cooperative, No Acute Distress Neck: Reports: Supple Lungs: Reports: Clear to Auscultation, Normal Respiratory Effort. Denies: Wheezing Cardiovascular: Reports: Regular Rate, Regular Rhythm GI/Abdominal Exam: Normal Bowel Sounds, Soft, Non-Tender, No Organomegaly, No Distention, No Abnormal Bruit, No Mass, Pelvis Stable Extremities: Normal Inspection, Normal Range of Motion, Non-Tender, No Pedal Edema, Normal Capillary Refill Neurological: Reports: No New Focal Deficit Psy/Mental Status: Reports: Alert, Normal Affect, Normal Mood
== END 2017-08-15 09:34 | disposition home or self-care (01) | DRG 139 ==
LOC: MW.ED 17:08 → MW.MS 18:50 → MW.ED 19:37
PROVIDERS: ADMIT Internal Medicine; ATTEND Internal Medicine
DX: J18.1 Lobar pneumonia, unspecified organism (principal); J96.01 Acute respiratory failure with hypoxia; J32.9 Chronic sinusitis, unspecified; I10 Essential (primary) hypertension; E66.01 Morbid (severe) obesity due to excess calories; Z68.42 Body mass index [BMI] 45.0-49.9, adult; Z87.891 Personal history of nicotine dependence; Z79.899 Other long term (current) drug therapy
CPT/HCPCS: 36415; 36600; 71045; 71045-26; 80048; 80053; 82803; 83605; 83880; 85025; 85027; 87040; 87070; 87205; 87804; 93005; 94640; 96365; 99285-25; A9270-GY; J1650; J1720; J1956

== ENCOUNTER 2017-10-29 12:52 | Emergency (ER) | payer BC ==
[2017-10-29] MEDS ORDERED: Sodium Chloride 0.9% 1,000 ML IV ONE (12:57)
[2017-10-29] MEDS ORDERED: Ketorolac 30 MG/ML SDV IVPUSH ONE (12:57)
[2017-10-29] MEDS ORDERED: Ondansetron 4 MG/2 ML SDV IVPUSH ONE (12:57)
--- NOTE | 2017-10-29 12:59 | EDM.PDOC ---
ED HPI GENERAL MEDICAL PROBLEM - General Stated Complaint: ABDOMINAL PAIN Time Seen by Provider: 10/29/17 12:58 Source of Information: Reports: Patient - History of Present Illness INITIAL COMMENTS - FREE TEXT/NARRATIVE: HISTORY AND PHYSICAL: History of present illness: [Patient presents with abdominal pain he rates 2-4 out of 10 anterior just above the umbilicus is been bothering him for a week, he did see his primary care but did not mention this during the exam, also notes that he has been doing some lifting is concerned about a possible hernia however he is very protuberant abdomen/obese difficult to evaluate he does not feel distended on exam but is significantly protuberant due to body habitus fever nausea vomiting chills sweats no chest pain headache dizziness or palpitation no bowel or urine symptoms last bowel movement this morning normal formed stool no blood or mucus ] Has had some intermittent shortness of breath is known to have had a recent pneumonia on inhalers and has not filled and antibiotic provided by his primary care Review of systems: As per history of present illness and below otherwise all systems reviewed and negative. Past medical history: As per history of present illness and as reviewed below otherwise noncontributory. Surgical history: As per history of present illness and as reviewed below otherwise noncontributory. Social history: No reported history of drug or alcohol abuse. Family history: As per history of present illness and as reviewed below otherwise noncontributory. Physical exam: HEENT: Atraumatic, normocephalic, pupils reactive, negative for conjunctival pallor or scleral icterus, mucous membranes moist, throat clear, neck supple, nontender, trachea midline. Lungs: Clear to auscultation, breath sounds equal bilaterally, chest nontender. Heart: S1S2, regular, negative for clicks, rubs, or JVD. Abdomen: Soft, nondistended, nontender. Negative for masses or hepatosplenomegaly. Negative for costovertebral tenderness. Pelvis: Stable nontender. Genitourinary: Deferred. Rectal: Deferred. Extremities: Atraumatic, negative for cords or calf pain. Neurovascular unremarkable. Neuro: Awake, alert, oriented. Cranial nerves II through XII unremarkable. Cerebellum unremarkable. Motor and sensory unremarkable throughout. Exam nonfocal. Diagnostics: [EDC CMP UA BN peptide] CT abdomen pelvis with contrast Chest 1 view Therapeutics: [Normal saline bolus Cipro 500 by mouth twice a day #20 no refill ] Impression: [] abdominal pain Recent diagnosis of bronchitis Chronic history of baseline Definitive disposition and diagnosis as appropriate pending reevaluation and review of above. mid abdomen Pain Score (Numeric/FACES): 2 - Related Data Allergies Allergy/AdvReac Type Severity Reaction Status Date / Time No Known Allergies Allergy Verified 10/29/17 13:00 Home Meds: Home Meds amLODIPine [Norvasc] 5 mg PO DAILY 07/04/14 [History] Fluticasone/Salmeterol [Advair 250-50] 1 puff INH BIDRT #1 diskus 08/15/17 [Rx] Ascorbate Calcium [Vitamin C] 500 mg PO DAILY 10/29/17 [History] Calcipotriene 1 ml TP ASDIRECTED 10/29/17 [History] Clobetasol [Clobetasol Propionate 0.05%] 1 gm TOP BID 10/29/17 [History] Fish Oil/[place]-3 Fatty Acids [Fish Oil 1,000 MG] 3 gm PO DAILY 10/29/17 [History ] Hydrochlorothiazide 12.5 mg PO DAILY 10/29/17 [History] Levofloxacin 500 mg PO DAILY 10/29/17 [History] Multivitamin with Minerals [Multiple Vitamin] 1 tab PO DAILY 10/29/17 [History] atorvaSTATin [Lipitor] 10 mg PO BEDTIME 10/29/17 [History] buPROPion [Wellbutrin SR] 150 mg PO BID 10/29/17 [History] Past Medical History HEENT History: Reports: None Cardiovascular History: Reports: Hypertension Respiratory History: Reports: None Gastrointestinal History: Reports: None Genitourinary History: Reports: None Musculoskeletal History: Reports: None Neurological History: Reports: None Psychiatric History: Reports: None Endocrine/Metabolic History: Reports: None Hematologic History: Reports: None Immunologic History: Reports: None Oncologic (Cancer) History: Reports: None Dermatologic History: Reports: None - Past Surgical History Head Surgeries/Procedures: Reports: None HEENT Surgical History: Reports: None Cardiovascular Surgical History: Reports: None Respiratory Surgical History: Reports: None GI Surgical History: Reports: None Male Surgical History: Reports: None Endocrine Surgical History: Reports: None Neurological Surgical History: Reports: None Musculoskeletal Surgical History: Reports: None Oncologic Surgical History: Reports: None Dermatological Surgical History: Reports: None Social & Family History - Family History Family Medical History: Noncontributory - Caffeine Use Caffeine Use: Reports: None ED ROS GENERAL - Review of Systems Review Of Systems: See Below ED EXAM, GENERAL - Physical Exam Exam: See Below Course - Vital Signs Last Recorded V/S: Last Vital Signs Temp 97.3 F 10/29/17 13:00 Pulse 73 10/29/17 14:39 Resp 20 10/29/17 14:39 BP 144/79 H 10/29/17 14:39 Pulse Ox 94 L 10/29/17 14:39 - Orders/Labs/Meds Orders: Active Orders 24 hr Category Date Time Status EKG Documentation Completion [RC] STAT Care 10/29/17 13:05 Active Abdomen Pelvis w Cont [CT] Stat Exams 10/29/17 13:48 Taken Chest 1V Frontal [CR] Stat Exams 10/29/17 13:21 Taken UA W/MICROSCOPIC [URIN] Stat Lab 10/29/17 14:40 Ordered Labs: Laboratory Tests 10/29/17 10/29/17 10/29/17 Range/Units 13:22 13:22 13:22 WBC 8.41 (4.0-11.0) K/uL RBC 4.86 (4.50-5.90) M/uL Hgb 16.2 (13.0-17.0) g/dL Hct 46.0 (38.0-50.0) % MCV 94.7 (80.0-98.0) fL MCH 33.3 H (27.0-32.0) pg MCHC 35.2 (31.0-37.0) g/dL RDW Std Deviation 51.4 (28.0-62.0) fl RDW Coeff of Ba 15 (11.0-15.0) % Plt Count 160 (150-400) K/uL MPV 10.70 (7.40-12.00) fL Neut % (Auto) 74.4 (48.0-80.0) % Lymph % (Auto) 15.6 L (16.0-40.0) % Hubbard % (Auto) 7.8 (0.0-15.0) % Eos % (Auto) 2.0 (0.0-7.0) % Baso % (Auto) 0.2 (0.0-1.5) % Neut # (Auto) 6.3 H (1.4-5.7) K/uL Lymph # (Auto) 1.3 (0.6-2.4) K/uL Hubbard # (Auto) 0.7 (0.0-0.8) K/uL Eos # (Auto) 0.2 (0.0-0.7) K/uL Baso # (Auto) 0.0 (0.0-0.1) K/uL Nucleated RBC % 0.0 /100WBC Nucleated RBCs # 0 K/uL Sodium 137 (136-148) mmol/L Potassium 3.7 (3.5-5.1) mmol/L Chloride 103 (98-107) mmol/L Carbon Dioxide 28.7 (21.0-32.0) mmol/L BUN 13 (7.0-18.0) mg/dL Creatinine 1.0 (0.8-1.3) mg/dL Est Cr Clr Drug Dosing 72.66 mL/min Estimated GFR (MDRD) > 60.0 ml/min Glucose 102 (74-106) mg/dL Calcium 8.7 (8.5-10.1) mg/dL Total Bilirubin 0.7 (0.2-1.0) mg/dL AST 27 (15-37) IU/L ALT 43 (14-63) IU/L Alkaline Phosphatase 71 (46-116) U/L Troponin I < 0.050 (0.000-0.056) ng/mL B-Natriuretic Peptide 30 (<100) PG/ML Total Protein 7.1 (6.4-8.2) g/dL Albumin 3.3 L (3.4-5.0) g/dL Globulin 3.8 H (2.0-3.5) g/dL Albumin/Globulin Ratio 0.9 L (1.3-2.8) Lipase 122 (73-393) U/L Urine Color Urine Appearance Urine pH (5.0-8.0) Ur Specific [place] (1.001-1.035) Urine Protein (NEGATIVE) mg/dL Urine Glucose (UA) (NEGATIVE) mg/dL Urine Ketones (NEGATIVE) mg/dL Urine Occult Blood (NEGATIVE) Urine Nitrite (NEGATIVE) Urine Bilirubin (NEGATIVE) Urine Urobilinogen (<2.0) EU/dL Ur Leukocyte Esterase (NEGATIVE) Urine RBC (0-2/HPF) Urine WBC (0-5/HPF) Ur Epithelial Cells (NONE-FEW) Urine Bacteria (NEGATIVE) 10/29/17 Range/Units 14:40 WBC (4.0-11.0) K/uL RBC (4.50-5.90) M/uL Hgb (13.0-17.0) g/dL Hct (38.0-50.0) % MCV (80.0-98.0) fL MCH (27.0-32.0) pg MCHC (31.0-37.0) g/dL RDW Std Deviation (28.0-62.0) fl RDW Coeff of Ba (11.0-15.0) % Plt Count (150-400) K/uL MPV (7.40-12.00) fL Neut % (Auto) (48.0-80.0) % Lymph % (Auto) (16.0-40.0) % Hubbard % (Auto) (0.0-15.0) % Eos % (Auto) (0.0-7.0) % Baso % (Auto) (0.0-1.5) % Neut # (Auto) (1.4-5.7) K/uL Lymph # (Auto) (0.6-2.4) K/uL Hubbard # (Auto) (0.0-0.8) K/uL Eos # (Auto) (0.0-0.7) K/uL Baso # (Auto) (0.0-0.1) K/uL Nucleated RBC % /100WBC Nucleated RBCs # K/uL Sodium (136-148) mmol/L Potassium (3.5-5.1) mmol/L Chloride (98-107) mmol/L Carbon Dioxide (21.0-32.0) mmol/L BUN (7.0-18.0) mg/dL Creatinine (0.8-1.3) mg/dL Est Cr Clr Drug Dosing mL/min Estimated GFR (MDRD) ml/min Glucose (74-106) mg/dL Calcium (8.5-10.1) mg/dL Total Bilirubin (0.2-1.0) mg/dL AST (15-37) IU/L ALT (14-63) IU/L Alkaline Phosphatase (46-116) U/L Troponin I (0.000-0.056) ng/mL B-Natriuretic Peptide (<100) PG/ML Total Protein (6.4-8.2) g/dL Albumin (3.4-5.0) g/dL Globulin (2.0-3.5) g/dL Albumin/Globulin Ratio (1.3-2.8) Lipase (73-393) U/L Urine Color YELLOW Urine Appearance CLEAR Urine pH 6.0 (5.0-8.0) Ur Specific [place] 1.020 (1.001-1.035) Urine Protein NEGATIVE (NEGATIVE) mg/dL Urine Glucose (UA) NEGATIVE (NEGATIVE) mg/dL Urine Ketones NEGATIVE (NEGATIVE) mg/dL Urine Occult Blood NEGATIVE (NEGATIVE) Urine Nitrite NEGATIVE (NEGATIVE) Urine Bilirubin NEGATIVE (NEGATIVE) Urine Urobilinogen 0.2 (<2.0) EU/dL Ur Leukocyte Esterase NEGATIVE (NEGATIVE) Urine RBC NONE SEEN (0-2/HPF) Urine WBC 0-1 (0-5/HPF) Ur Epithelial Cells RARE (NONE-FEW) Urine Bacteria RARE (NEGATIVE) Meds: Medications Discontinued Medications Generic Name Dose Route Start Last Admin Trade Name Freq PRN Reason Stop Dose Admin Sodium Chloride 1,000 mls @ 999 mls/hr 10/29/17 12:57 10/29/17 13:20 Normal Saline IV 10/29/17 13:57 999 mls/hr STAT ONE Administration Iopamidol 100 ml 10/29/17 14:55 10/29/17 15:05 Isovue-370 (76%) IVPUSH 10/29/17 14:56 100 ml ONETIME STA Administration Ketorolac Tromethamine 30 mg 10/29/17 12:57 10/29/17 13:20 Toradol IVPUSH 10/29/17 12:58 30 mg ONETIME ONE Administration Ondansetron HCl 8 mg 10/29/17 12:57 10/29/17 13:20 Zofran IVPUSH 10/29/17 12:58 8 mg ONETIME ONE Administration Departure - Departure Time of Disposition: 16:04 Disposition: Home, Self-Care 01 Condition: Good Clinical Impression: Abdominal pain - Discharge Information Referrals: Den Rincon MD [Primary Care Provider] - Additional Instructions: The following information is given to patients seen in the emergency department who are being discharged to home. This information is to outline your options for follow-up care. We provide all patients seen in our emergency department with a follow-up referral. The need for follow-up, as well as the timing and circumstances, are variable depending upon the specifics of your emergency department visit. If you don't have a primary care physician on staff, we will provide you with a referral. We always advise you to contact your personal physician following an emergency department visit to inform them of the circumstance of the visit and for follow-up with them and/or the need for any referrals to a consulting specialist. The emergency department will also refer you to a specialist when appropriate. This referral assures that you have the opportunity for follow-up care with a specialist. All of these measure are taken in an effort to provide you with optimal care, which includes your follow-up. Under all circumstances we always encourage you to contact your private physician who remains a resource for coordinating your care. When calling for follow-up care, please make the office aware that this follow-up is from your recent emergency room visit. If for any reason you are refused follow-up, please contact the [facility] emergency department at and asked to speak to the emergency department charge nurse. - My Orders Last 24 Hours: My Active Orders 10/29/17 13:05 EKG Documentation Completion [RC] STAT 10/29/17 13:21 Chest 1V Frontal [CR] Stat 10/29/17 13:48 Abdomen Pelvis w Cont [CT] Stat 10/29/17 14:40 UA W/MICROSCOPIC [URIN] Stat - Assessment/Plan Last 24 Hours: My Active Orders 10/29/17 13:05 EKG Documentation Completion [RC] STAT 10/29/17 13:21 Chest 1V Frontal [CR] Stat 10/29/17 13:48 Abdomen Pelvis w Cont [CT] Stat 10/29/17 14:40 UA W/MICROSCOPIC [URIN] Stat
[2017-10-29 14:06] LABS: CHLORIDE,CL 103 mmol/L (98-107); SODIUM,NA 137 mmol/L (136-148)
[2017-10-29] MEDS ORDERED: Iopamidol 755 Mg/ML 100 ML Bottle IVPUSH STA (14:55)
[2017-10-29 16:14] VITALS: BP 150/94
--- NOTE | 2017-10-30 10:11 | CR ---
EXAM DATE: 10/29/17 PATIENT'S AGE: 57 Patient: VARINDER BERNALILLO Facility: [place], [place] Site . Site : 1960 Study: XRay Chest [id number]/2018 1:43:44 PM Ordering Physician: Fabiola Childs Final Report: INDICATION: Chest pain and shortness of breath. TECHNIQUE: Chest 1 views COMPARISON: 10/27/2017. FINDINGS: Cardiovascular and mediastinum: Heart size and vasculature are normal in caliber and appearance. Lungs and pleural spaces: Lungs are clear. No sign of infiltrate or mass. No sign of pleural effusion. No pneumothorax. Bones and soft tissues: No significant findings. IMPRESSION: No acute findings and no significant changes from the prior exam. Dictated by Dixon Mejia MD @ Oct 29 2017 1:48PM (Electronic Signature) Report Signed by Proxy. CLAUYD
--- NOTE | 2017-10-30 10:24 | CT ---
EXAM DATE: 10/29/17 PATIENT'S AGE: 57 Patient: VARINDER MALIN Facility: [place], [place] Site . Site : 1960 Study: CT Abdomen/Pelvis [id number] 3:18:47 PM Ordering Physician: Fabiola Childs Final Report: Mid abdominal pain. Contrast-enhanced CT abdomen and pelvis. Coronal sagittal reformat images obtained. FINDINGS: Left basilar strandy atelectasis. No significant effusion. The heart size is normal. No pericardial effusion. Mild fatty liver. The spleen pancreas gallbladder adrenal glands appears unremarkable. There is symmetric enhancement of both kidneys. Cyst in the left lower kidney. Additional cyst too small to characterize low-density lesions in both kidneys. No hydronephrosis. Kidneys are otherwise unremarkable. No abdominal aortic aneurysm. Normal appendix. Urinary bladder appears unremarkable. Prostate gland within normal limits. The distal small bowel demonstrates bowel wall thickening which may be related to nonspecific infectious or inflammatory enteritis. Proximal to this the mid small bowel is dilated measuring up to 4 cm. No pneumatosis or free air. No discrete transition point identified. Mild mesenteric edema/stranding. Distally ileum is decompressed. Colon is unremarkable. No suspicious bony lesions. Impression: 1. Distal small bowel demonstrates bowel wall thickening which could be related to a nonspecific infectious or inflammatory enteritis. Proximal to this the mid small bowel is dilated measuring up to 4 cm. No discrete transition point present. This could be on the basis of ileus or mild low-grade obstruction. Mild mesenteric edema and stranding. Please note that all CT scans at this facility use dose modulation, iterative reconstruction, and/or weight-based dosing when appropriate to reduce radiation dose to as low as reasonably achievable. Dictated by Renata Price MD @ Oct 29 2017 3:35PM (Electronic Signature) Report Signed by Proxy. CLAUDY
== END 2017-10-29 16:16 | disposition home or self-care (01) ==
LOC: MW.ED 12:52
DX: R10.9 Unspecified abdominal pain (principal); J40 Bronchitis, not specified as acute or chronic; Z79.899 Other long term (current) drug therapy; I10 Essential (primary) hypertension
CPT/HCPCS: 36415; 71045; 74177; 80053; 81001; 83690; 83880; 84484; 85025; 93005; 96361; 96374; 96375; 99285; J1885; J2405; J7040; Q9967

== ENCOUNTER 2018-08-18 07:22 | Day surgery (SDC) | payer BC ==
[~2018-08-18 07:22] MED LIST: Lactated Ringers 1,000 ML IV SCH; Sodium Chloride 0.9% 10 ML SDV IV PRN; Sodium Chloride 0.9% 10 ML Syringe FLUSH PRN; Sodium Chloride 0.9% 2.5 ML Syringe FLUSH PRN
[2018-08-18] MEDS ORDERED: fentaNYL 100 MCG/2 ML SDV ONE (08:35)
[2018-08-18] MEDS ORDERED: Midazolam 1 MG/ML 2 ML SDV ONE (08:35)
[2018-08-18] MEDS ORDERED: Propofol 200 MG/20 ML SDV ONE (08:35)
[2018-08-18] MEDS ORDERED: Lidocaine 2% 5 ML SDV ONE (08:36)
--- NOTE | 2018-08-18 08:52 | PCM.PREANE ---
Preanesthetic Assessment - Anesthesia/Transfusion/Family Hx Anesthesia History: Prior Anesthesia Without Reaction Transfusion History: No Prior Transfusion(s) - Review of Systems General: No Symptoms Pulmonary: No Symptoms Cardiovascular: No Symptoms Gastrointestinal: No Symptoms Neurological: No Symptoms Other: Reports: None - Physical Assessment NPO Status Date: 08/17/18 NPO Status Time: 19:00 O2 Sat by Pulse Oximetry: 94 Respiratory Rate: 16 Vital Signs: Last Vital Signs Temp 36.2 C 08/18/18 08:02 Pulse 64 08/18/18 08:02 Resp 16 08/18/18 08:02 BP 132/75 08/18/18 08:02 Pulse Ox 94 L 08/18/18 08:02 Height: 1.68 m Weight: 139.253 kg ASA Class: 3 Airway Class: Mallampati = 3 Dentition: Reports: [place](s) Thyro-Mental Finger Breadths: 3 (SHORT, THICK NECK) Mouth Opening Finger Breadths: 3 ROM/Head Extension: Full Lungs: Clear to Auscultation, Normal Respiratory Effort Cardiovascular: Regular Rate, Regular Rhythm - Allergies Allergies/Adverse Reactions: Allergies Allergy/AdvReac Type Severity Reaction Status Date / Time No Known Allergies Allergy Verified 08/12/18 10:19 - Acknowledgements Anesthesia Type Planned: MAC Pt an Appropriate Candidate for the Planned Anesthesia: Yes Alternatives and Risks of Anesthesia Discussed w Pt/Guardian: Yes Pt/Guardian Understands and Agrees with Anesthesia Plan: Yes PreAnesthesia Questionnaire HEENT History: Reports: Hard of Hearing, Impaired Vision Other HEENT History: wears glasses, cathy hearing aids Cardiovascular History: Reports: High Cholesterol, Hypertension Respiratory History: Reports: Sleep Apnea Other Respiratory History: uses CPAP Gastrointestinal History: Reports: Colon Polyp Genitourinary History: Reports: None Musculoskeletal History: Reports: Osteoarthritis (BILATERAL knee pain) Neurological History: Reports: None Psychiatric History: Reports: Depression Endocrine/Metabolic History: Reports: Obesity/BMI 30+ Hematologic History: Reports: None Immunologic History: Reports: None Oncologic (Cancer) History: Reports: None Dermatologic History: Reports: Psoriasis - Infectious Disease History Infectious Disease History: Reports: None - Past Surgical History Head Surgeries/Procedures: Reports: None HEENT Surgical History: Reports: None Cardiovascular Surgical History: Reports: None Respiratory Surgical History: Reports: None GI Surgical History: Reports: Colonoscopy Male Surgical History: Reports: None Endocrine Surgical History: Reports: None Neurological Surgical History: Reports: None Musculoskeletal Surgical History: Reports: None Oncologic Surgical History: Reports: None Dermatological Surgical History: Reports: None - SUBSTANCE USE Smoking Status *Q: Former Smoker (quit 2 years ago) Tobacco Use Within Last Twelve Months: No Days Per Week of Alcohol Use: 8 (per chart) Recreational Drug Use History: No - HOME MEDS Home Medications: Home Meds amLODIPine [Norvasc] 5 mg PO DAILY 07/04/14 [History] Ascorbate Calcium [Vitamin C] 500 mg PO DAILY 10/29/17 [History] Clobetasol [Clobetasol Propionate 0.05%] 1 gm TOP BID 10/29/17 [History] Fish Oil/[place]-3 Fatty Acids [Fish Oil 1,000 MG] 3 gm PO DAILY 10/29/17 [History ] Multivitamin with Minerals [Multiple Vitamin] 1 tab PO DAILY 10/29/17 [History] atorvaSTATin [Lipitor] 10 mg PO BEDTIME 10/29/17 [History] buPROPion [Wellbutrin SR] 150 mg PO BID 10/29/17 [History] hydroCHLOROthiazide [Hydrochlorothiazide] 12.5 mg PO DAILY 10/29/17 [History] - CURRENT (IN HOUSE) MEDS Current Meds: Current Medications Lactated Ringer's (Ringers, Lactated) 1,000 mls @ 125 mls/hr IV ASDIRECTED HEMANT Lactated Ringer's (Ringers, Lactated) 1,000 mls @ 125 mls/hr IV ASDIRECTED HEMANT Last Admin: 08/18/18 08:10 Dose: 125 mls/hr Sodium Chloride (Saline Flush) 10 ml FLUSH ASDIRECTED PRN PRN Reason: Keep Vein Open Sodium Chloride (Saline Flush) 2.5 ml FLUSH ASDIRECTED PRN PRN Reason: Keep Vein Open Sodium Chloride (Saline Flush) 10 ml FLUSH ASDIRECTED PRN PRN Reason: Keep Vein Open Sodium Chloride (Saline Flush) 2.5 ml FLUSH ASDIRECTED PRN PRN Reason: Keep Vein Open Sodium Chloride (Normal Saline) 10 ml IV ASDIRECTED PRN PRN Reason: IV Use Sodium Chloride (Saline Flush) 10 ml FLUSH ASDIRECTED PRN PRN Reason: Keep Vein Open Sodium Chloride (Saline Flush) 2.5 ml FLUSH ASDIRECTED PRN PRN Reason: Keep Vein Open Sodium Chloride (Normal Saline) 10 ml IV ASDIRECTED PRN PRN Reason: IV Use Discontinued Medications Fentanyl (Sublimaze) Confirm Administered Dose 100 mcg .ROUTE .STK-MED ONE Stop: 08/18/18 08:36 Lidocaine (Xylocaine-Mpf 2%) Confirm Administered Dose 5 ml .ROUTE .STK-MED ONE Stop: 08/18/18 08:37 Midazolam HCl (Versed 1 Mg/Ml) Confirm Administered Dose 2 mg .ROUTE .STK-MED ONE Stop: 08/18/18 08:36 Propofol (Diprivan 20 Ml) Confirm Administered Dose 200 mg .ROUTE .STK-MED ONE Stop: 08/18/18 08:36
--- NOTE | 2018-08-18 09:33 | PCM.OPNOTE ---
- General Post-Op/Procedure Note Date of Surgery/Procedure: 08/18/18 Operative Procedure(s): screening colonoscopy Findings: normal colon Pre Op Diagnosis: screening colonoscopy, hx of colon polyps Post-Op Diagnosis: normal colon Anesthesia Technique: LUCERO Primary Surgeon: Kate Fowler Pathology: none EBL in mLs: 0 Condition: Good
--- NOTE | 2018-08-18 09:43 | PCM.POSTAN ---
POST ANESTHESIA ASSESSMENT - MENTAL STATUS Mental Status: Alert, Oriented - RESPIRATORY Respiratory Status: Respiratory Rate WNL, Airway Patent, O2 Saturation Stable - CARDIOVASCULAR CV Status: Pulse Rate WNL, Blood Pressure Stable - GASTROINTESTINAL GI Status: No Symptoms - POST OP HYDRATION Hydration Status: Adequate & Stable - OBSERVATIONS Free Text/Narrative:: the patient has no complaints at this time. There were no apparent anesthetic complications at this time.
--- NOTE | 2018-08-18 10:13 | PCM48HPAN ---
Post Anesthesia Note - EVALUATION WITHIN 48HRS OF ANESTHETIC Vital Signs in Normal Range: Yes Patient Participated in Evaluation: Yes Respiratory Function Stable: Yes Airway Patent: Yes Cardiovascular Function Stable: Yes Hydration Status Stable: Yes Pain Control Satisfactory: Yes Nausea and Vomiting Control Satisfactory: Yes Mental Status Recovered: Yes Resp Rate: 17 - COMMENTS/OBSERVATIONS Free Text/Narrative:: The patient has no complaints at this time. Discharge per criteria.
[2018-08-18 10:22] VITALS: BP 127/82
--- NOTE | 2018-08-18 18:12 | OR ---
SURGEON: KATE FOWLER MD DATE OF PROCEDURE: 08/18/2018 PREOPERATIVE DIAGNOSIS: History of colon polyps. POSTOPERATIVE DIAGNOSIS: Normal colonoscopy. PROCEDURE PERFORMED: Screening colonoscopy. ENDOSCOPIST: Kate Fowler MD. ANESTHESIA: MAC. INSTRUMENT USED: Olympus colonoscope. EXTENT OF EXAM: To the cecum. PREPARATION: Good. LIMITATIONS: None. INDICATIONS FOR EXAMINATION: The patient is a 58-year-old male who has a history of colon polyps. I explained the need for a colonoscopy. The patient and I discussed the procedure, expected perioperative course, and risks including bleeding, infection, or damage to surrounding structures including perforation. The patient verbalized understanding and wishes to proceed. PROCEDURE IN DETAIL: The patient was brought into the endoscopy suite and placed in the left lateral decubitus position. A time-out was completed verifying the patient's name, age, date of , allergies, and procedure to be performed. Monitored anesthesia care was induced and continuous oxygen was provided via nasal cannula throughout the procedure. After adequate sedation was achieved, a digital rectal exam was performed. This exam was within normal limits. A well lubricated colonoscope was inserted into the rectum and advanced under direct visualization to the level of the cecum. Cecum was identified by both visual and anatomic landmarks. A photograph was taken of the cecal cap as well as with the scope retroflexed within the cecum. The scope was then fully withdrawn while examining the color, texture, anatomy, and integrity of the mucosa from the cecum to the anal canal. The findings were consistent with normal colonic mucosa. The scope was brought into the rectum and retroflexed to allow visualization of the anal canal opening. This appeared normal and a photograph was taken. The scope was then straightened out and fully withdrawn. The cecum to anus time was 10 minutes. The patient tolerated the procedure well and was transferred to PACU in stable condition. ENDOSCOPIC DIAGNOSIS: Normal colonoscopy. RECOMMENDATIONS: Follow up in clinic in 5 years. UCHE / KENDELL /[id number]
== END 2018-08-18 10:18 | disposition home or self-care (01) ==
LOC: MW.SDS 07:22
PROVIDERS: ATTEND Surgery
DX: Z12.11 Encounter for screening for malignant neoplasm of colon (principal); Z86.010 Personal history of colon polyps; E87.6 Hypokalemia; I10 Essential (primary) hypertension; G47.30 Sleep apnea, unspecified; F17.210 Nicotine dependence, cigarettes, uncomplicated; L40.9 Psoriasis, unspecified; F32.9 Major depressive disorder, single episode, unspecified; E66.9 Obesity, unspecified; Z68.42 Body mass index [BMI] 45.0-49.9, adult; Z79.899 Other long term (current) drug therapy; Z99.89 Dependence on other enabling machines and devices; Z87.09 Personal history of other diseases of the respiratory system
CPT/HCPCS: 45378; J2001; J2250; J2704; J3010; J7120

== ENCOUNTER 2018-09-07 08:40 | Emergency (ER) | payer BC ==
[2018-09-07 08:54] VITALS: BP 147/67
--- NOTE | 2018-09-07 09:02 | EDM.PDOC ---
ED HPI GENERAL MEDICAL PROBLEM - General Chief Complaint: ENT Problem Stated Complaint: RT EAR Time Seen by Provider: 09/07/18 08:46 Source of Information: Reports: Patient History Limitations: Reports: No Limitations - History of Present Illness INITIAL COMMENTS - FREE TEXT/NARRATIVE: History of present illness: []Patient wears hearing aids that have a plastic tip broke off in his ear canal. He did not realize it and stuck a Q-tip in his ear to clean 0 this morning and felt it move further in. Review of systems: As per history of present illness and below otherwise all systems reviewed and negative. Past medical history: As per history of present illness and as reviewed below otherwise noncontributory. Surgical history: As per history of present illness and as reviewed below otherwise noncontributory. Social history: No reported history of drug or alcohol abuse. Family history: As per history of present illness and as reviewed below otherwise noncontributory. Physical exam: General: Well developed, well nourished in NAD HEENT: Atraumatic, normocephalic, pupils reactive, negative for conjunctival pallor or scleral icterus, mucous membranes moist, throat clear, neck supple, nontender, trachea midline. Right EAC with visible plastic, no bleeding, or erythema noted Lungs: Clear to auscultation, breath sounds equal bilaterally, chest nontender. Heart: S1S2, regular, negative for clicks, rubs, or JVD. Abdomen: NABS, Soft, nondistended, nontender. Negative for masses or hepatosplenomegaly. Negative for costovertebral tenderness. Pelvis: Stable nontender. Genitourinary: Deferred. Rectal: Deferred. Extremities: Atraumatic, negative for cords or calf pain. Neurovascular unremarkable. Neuro: Awake, alert, oriented. Cranial nerves II through XII unremarkable. Cerebellum unremarkable. Motor and sensory unremarkable throughout. Exam nonfocal. Skin:warm and dry Diagnostics: Normal Therapeutics: Removal of foreign body in right ear canal with alligator forceps without difficulty ED Course: Stable Impression: Removal of foreign body from right ear canal Prescriptions: None Plan: Follow-up with PMD as needed Definitive disposition and diagnosis as appropriate pending reevaluation and review of above. right ear Pain Score (Numeric/FACES): 1 - Related Data Allergies Allergy/AdvReac Type Severity Reaction Status Date / Time No Known Allergies Allergy Verified 09/07/18 08:51 Home Meds: Home Meds amLODIPine [Norvasc] 5 mg PO DAILY 07/04/14 [History] Ascorbate Calcium [Vitamin C] 500 mg PO DAILY 10/29/17 [History] Clobetasol [Temovate 0.05% Oint] 1 gm TOP BID 10/29/17 [History] Fish Oil/[place]-3 Fatty Acids [Fish Oil 1,000 MG] 3 gm PO DAILY 10/29/17 [History ] Multivitamin with Minerals [Multiple Vitamin] 1 tab PO DAILY 10/29/17 [History] atorvaSTATin [Lipitor] 10 mg PO BEDTIME 10/29/17 [History] buPROPion [Wellbutrin SR] 150 mg PO BID 10/29/17 [History] hydroCHLOROthiazide [Hydrochlorothiazide] 12.5 mg PO DAILY 10/29/17 [History] Past Medical History HEENT History: Reports: Hard of Hearing, Impaired Vision Other HEENT History: wears glasses, cathy hearing aids Cardiovascular History: Reports: High Cholesterol, Hypertension Respiratory History: Reports: Sleep Apnea Other Respiratory History: uses CPAP Gastrointestinal History: Reports: Colon Polyp Genitourinary History: Reports: None Musculoskeletal History: Reports: Osteoarthritis Neurological History: Reports: None Psychiatric History: Reports: Depression Endocrine/Metabolic History: Reports: Obesity/BMI 30+ Hematologic History: Reports: None Immunologic History: Reports: None Oncologic (Cancer) History: Reports: None Dermatologic History: Reports: Psoriasis - Infectious Disease History Infectious Disease History: Reports: None - Past Surgical History Head Surgeries/Procedures: Reports: None HEENT Surgical History: Reports: None Cardiovascular Surgical History: Reports: None Respiratory Surgical History: Reports: None GI Surgical History: Reports: Colonoscopy Male Surgical History: Reports: None Endocrine Surgical History: Reports: None Neurological Surgical History: Reports: None Musculoskeletal Surgical History: Reports: None Oncologic Surgical History: Reports: None Dermatological Surgical History: Reports: None Social & Family History - Family History Family Medical History: Noncontributory - Tobacco Use Smoking Status *Q: Former Smoker Used Tobacco, but Quit: Yes Month/Year Tobacco Last Used: 2 - Caffeine Use Caffeine Use: Reports: Soda - Recreational Drug Use Recreational Drug Use: No ED ROS ENT - Review of Systems Review Of Systems: ROS reveals no pertinent complaints other than HPI. ED EXAM, ENT - Physical Exam Exam: See Below Course - Vital Signs Last Recorded V/S: Last Vital Signs Temp 96.3 F 09/07/18 08:51 Pulse 80 09/07/18 08:51 Resp 18 09/07/18 08:51 BP 147/67 H 09/07/18 08:51 Pulse Ox 94 L 09/07/18 08:51 Departure - Departure Time of Disposition: 09:02 Disposition: Home, Self-Care 01 Condition: Good Clinical Impression: Foreign body in ear Qualifiers: Encounter type: initial encounter Laterality: right Qualified Code(s): T16.1XXA - Foreign body in right ear, initial encounter - Discharge Information *PRESCRIPTION DRUG MONITORING PROGRAM REVIEWED*: No *COPY OF PRESCRIPTION DRUG MONITORING REPORT IN PATIENT ERIKA: No Referrals: PCP,Unknown [Primary Care Provider] - Additional Instructions: The following information is given to patients seen in the emergency department who are being discharged to home. This information is to outline your options for follow-up care. We provide all patients seen in our emergency department with a follow-up referral. The need for follow-up, as well as the timing and circumstances, are variable depending upon the specifics of your emergency department visit. If you don't have a primary care physician on staff, we will provide you with a referral. We always advise you to contact your personal physician following an emergency department visit to inform them of the circumstance of the visit and for follow-up with them and/or the need for any referrals to a consulting specialist. The emergency department will also refer you to a specialist when appropriate. This referral assures that you have the opportunity for follow-up care with a specialist. All of these measure are taken in an effort to provide you with optimal care, which includes your follow-up. Under all circumstances we always encourage you to contact your private physician who remains a resource for coordinating your care. When calling for follow-up care, please make the office aware that this follow-up is from your recent emergency room visit. If for any reason you are refused follow-up, please contact the [facility] Emergency Department at and asked to speak to the emergency department charge nurse. [facility] [address] [place] [id number]
== END 2018-09-07 09:09 | disposition home or self-care (01) ==
LOC: MW.ED 08:40
DX: T16.1XXA Foreign body in right ear, initial encounter (principal); I10 Essential (primary) hypertension; F32.9 Major depressive disorder, single episode, unspecified; E66.9 Obesity, unspecified; Z79.899 Other long term (current) drug therapy; Z87.891 Personal history of nicotine dependence
CPT/HCPCS: 99282

== ENCOUNTER 2018-09-15 06:09 | Emergency (ER) | payer BC ==
--- NOTE | 2018-09-15 07:16 | CR ---
INDICATION: 4 images. no prior. pain/swelling INDICATION: Pain and swelling. TECHNIQUE: Right tibia/fibula, AP and lateral views. COMPARISON: None FINDINGS: Bones: Alignment is normal. No fractures or bone lesions. Joint spaces: Unremarkable. Soft tissues: No radiopaque foreign body or soft tissue gas. IMPRESSION: There is no acute bone abnormality. Dictated by Edgar Paulson MD @ 09/15/2018 7:15:10 AM Dictated by: Edgar Paulson MD @ 09/15/2018 07:15:17 (Electronically Signed)
[2018-09-15 07:25] LABS: CHLORIDE,CL 101 mmol/L (98-107); SODIUM,NA 138 mmol/L (136-148)
--- NOTE | 2018-09-15 08:15 | EDM.PDOC ---
ED HPI GENERAL MEDICAL PROBLEM - General Chief Complaint: Lower Extremity Injury/Pain Stated Complaint: INFECTION IN RT LEG Time Seen by Provider: 09/15/18 08:14 Source of Information: Reports: Patient - History of Present Illness INITIAL COMMENTS - FREE TEXT/NARRATIVE: HISTORY AND PHYSICAL: History of present illness: [Patient presents with redness warmth of the right lower extremity with trace edema no fever nausea vomiting chills sweats ] Review of systems: As per history of present illness and below otherwise all systems reviewed and negative. Past medical history: As per history of present illness and as reviewed below otherwise noncontributory. Surgical history: As per history of present illness and as reviewed below otherwise noncontributory. Social history: No reported history of drug or alcohol abuse. Family history: As per history of present illness and as reviewed below otherwise noncontributory. Physical exam: HEENT: Atraumatic, normocephalic, pupils reactive, negative for conjunctival pallor or scleral icterus, mucous membranes moist, throat clear, neck supple, nontender, trachea midline. Lungs: Clear to auscultation, breath sounds equal bilaterally, chest nontender. Heart: S1S2, regular, negative for clicks, rubs, or JVD. Abdomen: Soft, nondistended, nontender. Negative for masses or hepatosplenomegaly. Negative for costovertebral tenderness. Pelvis: Stable nontender. Genitourinary: Deferred. Rectal: Deferred. Extremities: Atraumatic, negative for cords or calf pain. Neurovascular unremarkable. Neuro: Awake, alert, oriented. Cranial nerves II through XII unremarkable. Cerebellum unremarkable. Motor and sensory unremarkable throughout. Exam nonfocal. Diagnostics: [CBC CMP blood culture INR Right tib-fib Right venous Doppler ] Therapeutics: [ Bactrim DS No. 20 no refill ] Impression: [ lower extremity cellulitis ] Definitive disposition and diagnosis as appropriate pending reevaluation and review of above. RLE Pain Score (Numeric/FACES): 1 - Related Data Allergies Allergy/AdvReac Type Severity Reaction Status Date / Time No Known Allergies Allergy Verified 09/15/18 06:18 Home Meds: Home Meds amLODIPine [Norvasc] 5 mg PO DAILY 07/04/14 [History] Ascorbate Calcium [Vitamin C] 500 mg PO DAILY 10/29/17 [History] Clobetasol [Temovate 0.05% Oint] 1 gm TOP BID 10/29/17 [History] Fish Oil/[place]-3 Fatty Acids [Fish Oil 1,000 MG] 3 gm PO DAILY 10/29/17 [History ] Multivitamin with Minerals [Multiple Vitamin] 1 tab PO DAILY 10/29/17 [History] atorvaSTATin [Lipitor] 10 mg PO BEDTIME 10/29/17 [History] buPROPion [Wellbutrin SR] 150 mg PO BID 10/29/17 [History] hydroCHLOROthiazide [Hydrochlorothiazide] 12.5 mg PO DAILY 10/29/17 [History] Past Medical History HEENT History: Reports: Hard of Hearing, Impaired Vision Other HEENT History: wears glasses, cathy hearing aids Cardiovascular History: Reports: High Cholesterol, Hypertension Respiratory History: Reports: Sleep Apnea Other Respiratory History: uses CPAP Gastrointestinal History: Reports: Colon Polyp Genitourinary History: Reports: None Musculoskeletal History: Reports: Osteoarthritis Neurological History: Reports: None Psychiatric History: Reports: Depression Endocrine/Metabolic History: Reports: Obesity/BMI 30+ Hematologic History: Reports: None Immunologic History: Reports: None Oncologic (Cancer) History: Reports: None Dermatologic History: Reports: Psoriasis - Infectious Disease History Infectious Disease History: Reports: Chicken Pox, Measles - Past Surgical History Head Surgeries/Procedures: Reports: None HEENT Surgical History: Reports: None Cardiovascular Surgical History: Reports: None Respiratory Surgical History: Reports: None GI Surgical History: Reports: Colonoscopy Male Surgical History: Reports: None Endocrine Surgical History: Reports: None Neurological Surgical History: Reports: None Musculoskeletal Surgical History: Reports: None Oncologic Surgical History: Reports: None Dermatological Surgical History: Reports: None Social & Family History - Family History Family Medical History: Noncontributory - Tobacco Use Smoking Status *Q: Former Smoker Used Tobacco, but Quit: Yes Month/Year Tobacco Last Used: 2016 - Caffeine Use Caffeine Use: Reports: Coffee - Recreational Drug Use Recreational Drug Use: No Review of Systems - Review of Systems Review Of Systems: See Below ED EXAM, GENERAL - Physical Exam Exam: See Below Course - Vital Signs Last Recorded V/S: Last Vital Signs Temp 97.6 F 09/15/18 06:16 Pulse 86 09/15/18 06:16 Resp 16 09/15/18 06:16 BP 163/96 H 09/15/18 06:16 Pulse Ox 95 09/15/18 06:16 - Orders/Labs/Meds Orders: Active Orders 24 hr Category Date Time Status CULTURE BLOOD [BC] Stat Lab 09/15/18 06:45 Received CULTURE BLOOD [BC] Stat Lab 09/15/18 06:55 Received Blood Culture x2 Reflex Set [OM.PC] Stat Oth 09/15/18 06:28 Ordered Labs: Laboratory Tests 09/15/18 09/15/18 09/15/18 Range/Units 06:45 06:45 06:45 WBC 12.15 H (4.0-11.0) K/uL RBC 4.53 (4.50-5.90) M/uL Hgb 14.8 (13.0-17.0) g/dL Hct 43.3 (38.0-50.0) % MCV 95.6 (80.0-98.0) fL MCH 32.7 H (27.0-32.0) pg MCHC 34.2 (31.0-37.0) g/dL RDW Std Deviation 49.8 (28.0-62.0) fl RDW Coeff of Ba 14 (11.0-15.0) % Plt Count 179 (150-400) K/uL MPV 9.70 (7.40-12.00) fL Neut % (Auto) 80.4 H (48.0-80.0) % Lymph % (Auto) 12.7 L (16.0-40.0) % Harding % (Auto) 5.5 (0.0-15.0) % Eos % (Auto) 1.2 (0.0-7.0) % Baso % (Auto) 0.2 (0.0-1.5) % Neut # (Auto) 9.8 H (1.4-5.7) K/uL Lymph # (Auto) 1.5 (0.6-2.4) K/uL Harding # (Auto) 0.7 (0.0-0.8) K/uL Eos # (Auto) 0.2 (0.0-0.7) K/uL Baso # (Auto) 0.0 (0.0-0.1) K/uL Nucleated RBC % 0.0 /100WBC Nucleated RBCs # 0 K/uL INR Lactate 1.1 (0.20-2.00) mmol/L Sodium 138 (136-148) mmol/L Potassium 3.8 (3.5-5.1) mmol/L Chloride 101 (98-107) mmol/L Carbon Dioxide 27.2 (21.0-32.0) mmol/L BUN 10 (7.0-18.0) mg/dL Creatinine 1.0 (0.8-1.3) mg/dL Est Cr Clr Drug Dosing 71.78 mL/min Estimated GFR (MDRD) > 60.0 ml/min Glucose 112 H (74-106) mg/dL Calcium 9.5 (8.5-10.1) mg/dL Total Bilirubin 1.0 (0.2-1.0) mg/dL AST 23 (15-37) IU/L ALT 30 (14-63) IU/L Alkaline Phosphatase 86 (46-116) U/L Total Protein 7.5 (6.4-8.2) g/dL Albumin 3.4 (3.4-5.0) g/dL Globulin 4.1 H (2.6-4.0) g/dL Albumin/Globulin Ratio 0.8 L (0.9-1.6) 09/15/18 Range/Units 06:46 WBC (4.0-11.0) K/uL RBC (4.50-5.90) M/uL Hgb (13.0-17.0) g/dL Hct (38.0-50.0) % MCV (80.0-98.0) fL MCH (27.0-32.0) pg MCHC (31.0-37.0) g/dL RDW Std Deviation (28.0-62.0) fl RDW Coeff of Ba (11.0-15.0) % Plt Count (150-400) K/uL MPV (7.40-12.00) fL Neut % (Auto) (48.0-80.0) % Lymph % (Auto) (16.0-40.0) % Harding % (Auto) (0.0-15.0) % Eos % (Auto) (0.0-7.0) % Baso % (Auto) (0.0-1.5) % Neut # (Auto) (1.4-5.7) K/uL Lymph # (Auto) (0.6-2.4) K/uL Harding # (Auto) (0.0-0.8) K/uL Eos # (Auto) (0.0-0.7) K/uL Baso # (Auto) (0.0-0.1) K/uL Nucleated RBC % /100WBC Nucleated RBCs # K/uL INR 1.07 Lactate (0.20-2.00) mmol/L Sodium (136-148) mmol/L Potassium (3.5-5.1) mmol/L Chloride (98-107) mmol/L Carbon Dioxide (21.0-32.0) mmol/L BUN (7.0-18.0) mg/dL Creatinine (0.8-1.3) mg/dL Est Cr Clr Drug Dosing mL/min Estimated GFR (MDRD) ml/min Glucose (74-106) mg/dL Calcium (8.5-10.1) mg/dL Total Bilirubin (0.2-1.0) mg/dL AST (15-37) IU/L ALT (14-63) IU/L Alkaline Phosphatase (46-116) U/L Total Protein (6.4-8.2) g/dL Albumin (3.4-5.0) g/dL Globulin (2.6-4.0) g/dL Albumin/Globulin Ratio (0.9-1.6) Departure - Departure Time of Disposition: 09:04 Disposition: Home, Self-Care 01 Condition: Good Clinical Impression: Cellulitis - Discharge Information Referrals: PCP,None [Primary Care Provider] - Forms: ED Department Discharge Additional Instructions: Medication as prescribed Return if symptoms persist or worsen Follow-up with primary care in 2 weeks sooner as needed [facility] [address] [place] [id number] The following information is given to patients seen in the emergency department who are being discharged to home. This information is to outline your options for follow-up care. We provide all patients seen in our emergency department with a follow-up referral. The need for follow-up, as well as the timing and circumstances, are variable depending upon the specifics of your emergency department visit. If you don't have a primary care physician on staff, we will provide you with a referral. We always advise you to contact your personal physician following an emergency department visit to inform them of the circumstance of the visit and for follow-up with them and/or the need for any referrals to a consulting specialist. The emergency department will also refer you to a specialist when appropriate. This referral assures that you have the opportunity for follow-up care with a specialist. All of these measure are taken in an effort to provide you with optimal care, which includes your follow-up. Under all circumstances we always encourage you to contact your private physician who remains a resource for coordinating your care. When calling for follow-up care, please make the office aware that this follow-up is from your recent emergency room visit. If for any reason you are refused follow-up, please contact the [facility] emergency department at and asked to speak to the emergency department charge nurse.
--- NOTE | 2018-09-15 08:51 | US ---
ULTRASOUND EXAMINATION OF the right lower extremity WITH DOPPLER HISTORY: Pain FINDINGS: Examination of the right leg was performed from the groin to the calf region. All visualized segments including common femoral, proximal greater saphenous, superficial femoral, popliteal and calf veins appear patent with good compressibility and augmentation. There is no evidence of deep vein thrombosis. Mildly prominent right inguinal lymph node noted most likely reactive. IMPRESSION: No evidence of a DVT.
[2018-09-15 09:14] VITALS: BP 149/89
== END 2018-09-15 09:10 | disposition home or self-care (01) ==
LOC: MW.ED 06:09
DX: L03.115 Cellulitis of right lower limb (principal); I10 Essential (primary) hypertension; E78.00 Pure hypercholesterolemia, unspecified; Z79.899 Other long term (current) drug therapy; Z87.891 Personal history of nicotine dependence
CPT/HCPCS: 36415; 73590-26-RT; 73590-RT; 80053; 83605; 85025; 85610; 87040; 93971-26-RT; 93971-RT; 99284-25

== ENCOUNTER 2019-09-13 15:44 | Inpatient (IN) | payer BC ==
[2019-09-13] MEDS ORDERED: Sodium Chloride 0.9% 1,000 ML IV ONE (15:49)
[2019-09-13] MEDS ORDERED: Acetaminophen 1,000 MG in Premix Bag 1 BAG IV ONE (15:50)
[2019-09-13 16:20] LABS: BLOOD UREA NITROGEN,BUN 16 mg/dL (7.0-18.0); CHLORIDE,CL 100 mmol/L (98-107); GLUCOSE RANDOM 106 mg/dL (74-106); POTASSIUM,K 3.6 mmol/L (3.5-5.1); SODIUM,NA 135 mmol/L (136-148)
--- NOTE | 2019-09-13 16:55 | CR ---
Chest: Portable view of the chest was obtained. Comparison: Prior chest x-ray of 10/29/17. Heart size is normal. Upper mediastinum is normal. Increased perihilar markings are noted which are felt to be chronic. There is thick linear densities with the right midlung which are most likely due to atelectasis. Parenchymal density is seen within the left upper chest which extends outside the chest and uncertain if this is within the chest wall or within the adjacent scapular bone. Impression: 1. Calcification within the left upper chest extending outside of the chest as noted above. CT would be needed to further characterize this finding if clinically needed. 2. Thick areas of atelectasis within the right midlung. 3. Other findings as noted above believed to be chronic. Diagnostic code #3 This report was dictated in MDT
[2019-09-13] MEDS ORDERED: cefTRIAXone 1 GM in Sodium Chloride 0.9% 50 ML IV SCH (17:15)
[2019-09-13] MEDS ORDERED: Ibuprofen 600 MG Tab PO ONE (17:16)
--- NOTE | 2019-09-13 17:16 | EDM.PDOC ---
ED HPI GENERAL MEDICAL PROBLEM - General Chief Complaint: Fever Stated Complaint: EMS Time Seen by Provider: 09/13/19 15:48 Source of Information: Reports: Patient, EMS History Limitations: Reports: Altered Mental Status - History of Present Illness INITIAL COMMENTS - FREE TEXT/NARRATIVE: Patient is a 59-year-old male who presents via EMS with altered mental status. There is been no trauma. Patient presents with a temperature of 103.8. 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 Patient had been complaining of a headache there is been no vomiting or diarrhea. Patient is extremely somnolent and somewhat arousable and only partially coherent. He denies any coughing or any dysuria. Patient denies any numbness weakness or paresthesias but at times seems to have slurred speech. There is no history of alcohol or narcotic abuse. Patient does not have pinpoint pupils. Onset: Today, Unknown/Unsure - Related Data Allergies Allergy/AdvReac Type Severity Reaction Status Date / Time No Known Allergies Allergy Verified 09/13/19 16:17 Home Meds: Home Meds amLODIPine [Norvasc] 5 mg PO DAILY 07/04/14 [History] Ascorbate Calcium [Vitamin C] 500 mg PO DAILY 10/29/17 [History] Clobetasol [Temovate 0.05% Oint] 1 gm TOP BID 10/29/17 [History] Fish Oil/[place]-3 Fatty Acids [Fish Oil 1,000 MG] 3 gm PO DAILY 10/29/17 [History ] Multivitamin with Minerals [Multiple Vitamin] 1 tab PO DAILY 10/29/17 [History] atorvaSTATin [Lipitor] 10 mg PO BEDTIME 10/29/17 [History] buPROPion [Wellbutrin SR] 150 mg PO BID 10/29/17 [History] hydroCHLOROthiazide [Hydrochlorothiazide] 12.5 mg PO DAILY 10/29/17 [History] Past Medical History HEENT History: Reports: Hard of Hearing, Impaired Vision Other HEENT History: wears glasses, cathy hearing aids Cardiovascular History: Reports: High Cholesterol, Hypertension Respiratory History: Reports: Sleep Apnea Other Respiratory History: uses CPAP Gastrointestinal History: Reports: Colon Polyp Genitourinary History: Reports: None Musculoskeletal History: Reports: Osteoarthritis Neurological History: Reports: None Psychiatric History: Reports: Depression Endocrine/Metabolic History: Reports: Obesity/BMI 30+ Hematologic History: Reports: None Immunologic History: Reports: None Oncologic (Cancer) History: Reports: None Dermatologic History: Reports: Psoriasis - Infectious Disease History Infectious Disease History: Reports: Chicken Pox, Measles - Past Surgical History Head Surgeries/Procedures: Reports: None HEENT Surgical History: Reports: None Cardiovascular Surgical History: Reports: None Respiratory Surgical History: Reports: None GI Surgical History: Reports: Colonoscopy Male Surgical History: Reports: None Endocrine Surgical History: Reports: None Neurological Surgical History: Reports: None Musculoskeletal Surgical History: Reports: None Oncologic Surgical History: Reports: None Dermatological Surgical History: Reports: None Social & Family History - Family History Family Medical History: Noncontributory - Tobacco Use Smoking Status *Q: Unknown Ever Smoked - Caffeine Use Caffeine Use: Reports: Coffee - Recreational Drug Use Recreational Drug Use: No ED ROS GENERAL - Review of Systems Review Of Systems: Unable To Obtain Reason Not Obtained: Altered mental status. ED EXAM, SEPSIS - Physical Exam Exam: See Below Exam Limited By: Altered Mental Status General Appearance: No Apparent Distress Eye Exam: Bilateral Eye: Normal Inspection Throat/Mouth: Other (Mucous membranes are dry.) Head: Atraumatic, Normocephalic Neck: Normal Inspection, Non-Tender, Full Range of Motion Respiratory/Chest: No Respiratory Distress, Lungs Clear, Normal Breath Sounds Cardiovascular: Regular Rate, Rhythm, No Edema, No JVD GI/Abdominal Exam: Normal Bowel Sounds, Soft, Non-Tender, No Organomegaly, Other (Patient is morbidly obese. Any abdominal tenderness.) Back: Normal Inspection. No: CVA Tenderness (L), CVA Tenderness (R) Extremities: Increased Warmth, Redness, Other (Patient has increased redness and extreme warmth to both lower extremities worse on the right than on the left with redness going up on his inner thigh particularly on the right.) Neurological: No Motor/Sensory Deficits, Slow to Respond Skin: Warm, Dry EKG INTERPRETATION EKG Interpretation Comments: Sinus tachycardia without any ST or T wave changes. Course - Vital Signs Text/Narrative:: Patient had an elevated temperature at 103.8 on arrival and was very somnolent with altered mental status. Patient was somewhat confused. Patient was given IV fluids and IV acetaminophen 1 g. His heart rate has come down to the 113 and his mental status has dramatically improved. Chest x-ray appears to me to have filtrate in the right lower lobe though was read by radiologist as thick linear density in the right middle lobe thought to be atelectasis. Patient's white blood cell count 14.7 with a left shift of 13.7 absolute neutrophils. Lactate was 1.0. ABG was 7.54 pH PCO2 27 PO2 of 56. His alcohol level is negative. Patient's temperature is now 101 and he has coherent to person place and time. He is much more alert and denies having any headache any numbness weakness paresthesias. He states that he has been well recently. He denies any cough. Patient does work as a php mysql web developer. I have given the patient 1 g Rocephin IV and hospitalist does not want CAT scan of his head which I had canceled earlier after improvement of his mental status and does want him started on both vancomycin and Zosyn for cellulitis of his right lower extremity and possible pneumonia. He will be admitted to telemetry. Last Recorded V/S: Last Vital Signs Temp 38.8 C H 09/13/19 17:23 Pulse 111 H 09/13/19 17:19 Resp 30 H 09/13/19 17:19 BP 104/61 09/13/19 17:19 Pulse Ox 92 L 09/13/19 17:19 - Orders/Labs/Meds Orders: Active Orders 24 hr Category Date Time Status Cooling Warming Measures [RC] ASDIRECTED Care 09/13/19 15:51 Active EKG 12 Lead [EKG Documentation Completion] [RC] STAT Care 09/13/19 15:49 Active Head wo Cont [CT] Stat Exams 09/13/19 17:35 Ordered CULTURE BLOOD [BC] Stat Lab 09/13/19 15:49 Received CULTURE BLOOD [BC] Stat Lab 09/13/19 16:00 Received UA W/MICROSCOPIC [URIN] Stat Lab 09/13/19 15:48 Ordered Piperacillin/Tazobactam [Piperacil-Tazobact] 3.375 gm Med 09/13/19 17:38 Active Sodium Chloride 0.9% [Normal Saline] 50 ml IV ONETIME Vancomycin 1 gm Med 09/13/19 17:36 Active Sodium Chloride 0.9% [Normal Saline (AdvBag)] 250 ml IV ONETIME cefTRIAXone [Rocephin] 1 gm Med 09/13/19 17:15 Active Sodium Chloride 0.9% [Normal Saline] 50 ml IV Q24H Blood Culture x2 Reflex Set [OM.PC] Stat Oth 09/13/19 15:51 Ordered Ice Pack [Ice Therapy] [OM.PC] Stat Oth 09/13/19 15:51 Ordered Medication Orders Ceftriaxone Sodium 1 gm/ (Sodium Chloride) 50 mls @ 100 mls/hr IV Q24H HEMANT Last Admin: 09/13/19 17:23 Dose: 100 mls/hr Vancomycin HCl 1 gm/ Sodium (Chloride) 250 mls @ 166 mls/hr IV ONETIME ONE Stop: 09/13/19 19:06 Piperacillin Sod/Tazobactam (Sod 3.375 gm/ Sodium Chloride) 50 mls @ 100 mls/ hr IV ONETIME ONE Stop: 09/13/19 18:07 Labs: Laboratory Tests 09/13/19 09/13/19 09/13/19 Range/Units 15:49 15:49 15:49 WBC 14.70 H (4.0-11.0) K/uL RBC 4.62 (4.50-5.90) M/uL Hgb 14.8 (13.0-17.0) g/dL Hct 43.3 (38.0-50.0) % MCV 93.7 (80.0-98.0) fL MCH 32.0 (27.0-32.0) pg MCHC 34.2 (31.0-37.0) g/dL RDW Std Deviation 46.4 (28.0-62.0) fl RDW Coeff of Ba 14 (11.0-15.0) % Plt Count 122 L (150-400) K/uL MPV 10.20 (7.40-12.00) fL Neut % (Auto) 93.2 H (48.0-80.0) % Lymph % (Auto) 3.8 L (16.0-40.0) % [place] % (Auto) 2.9 (0.0-15.0) % Eos % (Auto) 0.0 (0.0-7.0) % Baso % (Auto) 0.1 (0.0-1.5) % Neut # (Auto) 13.7 H (1.4-5.7) K/uL Lymph # (Auto) 0.6 (0.6-2.4) K/uL [place] # (Auto) 0.4 (0.0-0.8) K/uL Eos # (Auto) 0.0 (0.0-0.7) K/uL Baso # (Auto) 0.0 (0.0-0.1) K/uL Nucleated RBC % 0.0 /100WBC Nucleated RBCs # 0 K/uL ABG pH (7.35-7.45) ABG pCO2 (35-45) mmHG ABG pO2 (75-100) mmHG ABG HCO3 (22-26) mEq/L ABG Total CO2 ABG Base Excess (-2.0-2.0) Lactate 1.0 (0.20-2.00) mmol/L Sodium 135 L (136-148) mmol/L Potassium 3.6 (3.5-5.1) mmol/L Chloride 100 (98-107) mmol/L Carbon Dioxide 26.0 (21.0-32.0) mmol/L BUN 16 (7.0-18.0) mg/dL Creatinine 1.5 H (0.8-1.3) mg/dL Est Cr Clr Drug Dosing 43.85 mL/min Estimated GFR (MDRD) 47.7 ml/min Glucose 106 (74-106) mg/dL Calcium 8.6 (8.5-10.1) mg/dL Total Bilirubin 1.0 (0.2-1.0) mg/dL AST 26 (15-37) IU/L ALT 38 (14-63) IU/L Alkaline Phosphatase 71 (46-116) U/L Total Protein 7.2 (6.4-8.2) g/dL Albumin 3.4 (3.4-5.0) g/dL Globulin 3.8 (2.6-4.0) g/dL Albumin/Globulin Ratio 0.9 (0.9-1.6) Ethyl Alcohol < 3.0 mg/dL SARS-CoV-2 RNA (RT-PCR) (NEGATIVE) 09/13/19 09/13/19 Range/Units 16:03 16:05 WBC (4.0-11.0) K/uL RBC (4.50-5.90) M/uL Hgb (13.0-17.0) g/dL Hct (38.0-50.0) % MCV (80.0-98.0) fL MCH (27.0-32.0) pg MCHC (31.0-37.0) g/dL RDW Std Deviation (28.0-62.0) fl RDW Coeff of Ba (11.0-15.0) % Plt Count (150-400) K/uL MPV (7.40-12.00) fL Neut % (Auto) (48.0-80.0) % Lymph % (Auto) (16.0-40.0) % [place] % (Auto) (0.0-15.0) % Eos % (Auto) (0.0-7.0) % Baso % (Auto) (0.0-1.5) % Neut # (Auto) (1.4-5.7) K/uL Lymph # (Auto) (0.6-2.4) K/uL [place] # (Auto) (0.0-0.8) K/uL Eos # (Auto) (0.0-0.7) K/uL Baso # (Auto) (0.0-0.1) K/uL Nucleated RBC % /100WBC Nucleated RBCs # K/uL ABG pH 7.517 H (7.35-7.45) ABG pCO2 27 L (35-45) mmHG ABG pO2 56 L (75-100) mmHG ABG HCO3 22 (22-26) mEq/L ABG Total CO2 19.1 ABG Base Excess 0.6 (-2.0-2.0) Lactate (0.20-2.00) mmol/L Sodium (136-148) mmol/L Potassium (3.5-5.1) mmol/L Chloride (98-107) mmol/L Carbon Dioxide (21.0-32.0) mmol/L BUN (7.0-18.0) mg/dL Creatinine (0.8-1.3) mg/dL Est Cr Clr Drug Dosing mL/min Estimated GFR (MDRD) ml/min Glucose (74-106) mg/dL Calcium (8.5-10.1) mg/dL Total Bilirubin (0.2-1.0) mg/dL AST (15-37) IU/L ALT (14-63) IU/L Alkaline Phosphatase (46-116) U/L Total Protein (6.4-8.2) g/dL Albumin (3.4-5.0) g/dL Globulin (2.6-4.0) g/dL Albumin/Globulin Ratio (0.9-1.6) Ethyl Alcohol mg/dL SARS-CoV-2 RNA (RT-PCR) NEGATIVE (NEGATIVE) Meds: Medications Generic Name Dose Route Start Last Admin Trade Name Oscarq PRN Reason Stop Dose Admin Ceftriaxone Sodium 1 gm/ 50 mls @ 100 mls/hr 09/13/19 17:15 09/13/19 17:23 Sodium Chloride IV 100 mls/hr Q24H HEMANT Administration Vancomycin HCl 1 gm/ Sodium 250 mls @ 166 mls/hr 09/13/19 17:36 Chloride IV 09/13/19 19:06 ONETIME ONE Piperacillin Sod/Tazobactam 50 mls @ 100 mls/hr 09/13/19 17:38 Sod 3.375 gm/ Sodium Chloride IV 09/13/19 18:07 ONETIME ONE Discontinued Medications Generic Name Dose Route Start Last Admin Trade Name Oscarq PRN Reason Stop Dose Admin Acetaminophen 1,000 mg/ Premix 100 mls @ 400 mls/hr 09/13/19 15:50 09/13/19 16:25 IV 09/13/19 16:04 400 mls/hr NOW ONE Administration Sodium Chloride 1,000 mls @ 999 mls/hr 09/13/19 15:49 09/13/19 16:25 Normal Saline IV 09/13/19 16:49 999 mls/hr .BOLUS ONE Administration Ibuprofen 600 mg 09/13/19 17:16 09/13/19 17:23 Motrin PO 09/13/19 17:17 600 mg ONETIME ONE Administration Departure - Departure Time of Disposition: 17:44 Disposition: Admitted As Inpatient 65 Condition: Fair Clinical Impression: Altered mental status, Cellulitis - Discharge Information Referrals: Den Rincon MD [Primary Care Provider] - Forms: ED Department Discharge Sepsis Event Note - Evaluation Sepsis Screening Result: No Definite Risk - Focused Exam Vital Signs: Vital Signs Temp Temp Pulse Resp BP Pulse Ox 09/13/19 17:23 38.8 C H 09/13/19 17:19 38.8 C H 111 H 30 H 104/61 92 L 09/13/19 16:14 38.9 C H 121 H 48 H 173/96 H 90 L Date Exam was Performed: 09/13/19 Time Exam was Performed: 17:39 - My Orders Last 24 Hours: My Active Orders 09/13/19 15:48 UA W/MICROSCOPIC [URIN] Stat 09/13/19 15:49 EKG 12 Lead [EKG Documentation Completion] [RC] STAT CULTURE BLOOD [BC] Stat 09/13/19 15:51 Cooling Warming Measures [RC] ASDIRECTED Blood Culture x2 Reflex Set [OM.PC] Stat Ice Pack [Ice Therapy] [OM.PC] Stat 09/13/19 16:00 CULTURE BLOOD [BC] Stat 09/13/19 17:15 cefTRIAXone [Rocephin] 1 gm Sodium Chloride 0.9% [Normal Saline] 50 ml IV Q24H 09/13/19 17:35 Head wo Cont [CT] Stat 09/13/19 17:36 Vancomycin 1 gm Sodium Chloride 0.9% [Normal Saline (AdvBag)] 250 ml IV ONETIME 09/13/19 17:38 Piperacillin/Tazobactam [Piperacil-Tazobact] 3.375 gm Sodium Chloride 0.9% [ Normal Saline] 50 ml IV ONETIME - Assessment/Plan Last 24 Hours: My Active Orders 09/13/19 15:48 UA W/MICROSCOPIC [URIN] Stat 09/13/19 15:49 EKG 12 Lead [EKG Documentation Completion] [RC] STAT CULTURE BLOOD [BC] Stat 09/13/19 15:51 Cooling Warming Measures [RC] ASDIRECTED Blood Culture x2 Reflex Set [OM.PC] Stat Ice Pack [Ice Therapy] [OM.PC] Stat 09/13/19 16:00 CULTURE BLOOD [BC] Stat 09/13/19 17:15 cefTRIAXone [Rocephin] 1 gm Sodium Chloride 0.9% [Normal Saline] 50 ml IV Q24H 09/13/19 17:35 Head wo Cont [CT] Stat 09/13/19 17:36 Vancomycin 1 gm Sodium Chloride 0.9% [Normal Saline (AdvBag)] 250 ml IV ONETIME 09/13/19 17:38 Piperacillin/Tazobactam [Piperacil-Tazobact] 3.375 gm Sodium Chloride 0.9% [ Normal Saline] 50 ml IV ONETIME
[2019-09-13] MEDS ORDERED: Piperacillin/Tazobactam 3.375 GM in Sodium Chloride 0.9% 50 ML IV ONE (17:38)
--- NOTE | 2019-09-13 18:05 | PCM.HP.2 ---
<Roxanne Mueller - Last Filed: 09/13/19 19:01> H&P History of Present Illness - General Date of Service: 09/13/19 - History of Present Illness Initial Comments - Free Text/Narative: The patient is a 59 year old male with PMH of HTN, hyperlipidemia, sleep apnea, and depression who presented to the ER via EMS with AMS and temp of 103. 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 He reports fever/chills for the past two days with decreased appetite. He denies headache, neck pain, nasal congestion, sore throat, ear pain, chest pain , shortness of breath, abdominal pain, nausea/vomiting, constipation/diarrhea, or urinary symptoms. He does have erythema right inner thigh, he is unsure how long it has been like that but states it is not painful. Denies drug or alcohol use. In the ER, he had a temp of 102.1 which improved to 101.9 with Tylenol, ibuprofen, and cooling measures. ER reported that as his fever improved his altered mental status improved. He was also tachycardic and tachypneic. Work up revealed leukocytosis of 14.7 but lactate wnl. His ABG showed respiratory alkalosis. He had elevated Creatine of 1.5. Alcohol level was negative. COVID was negative. CXR showed calcification left upper chest that extended outside the chest, CT chest was recommended, as well as thickened area of atelectasis right mid lung. Head CT and Chest CT pending. In the ER he received a dose of Rocephin, Zosyn, and Vancomycin. PCP- Dr. Rincon - Related Data Allergies/Adverse Reactions: Allergies Allergy/AdvReac Type Severity Reaction Status Date / Time No Known Allergies Allergy Verified 09/13/19 21:41 Home Medications: Home Meds atorvaSTATin [Lipitor] 10 mg PO BEDTIME 10/29/17 [History] buPROPion [Wellbutrin SR] 150 mg PO BID 10/29/17 [History] hydroCHLOROthiazide [Hydrochlorothiazide] 12.5 mg PO DAILY 10/29/17 [History] Past Medical History HEENT History: Reports: Hard of Hearing, Impaired Vision Other HEENT History: wears glasses, cathy hearing aids Cardiovascular History: Reports: High Cholesterol, Hypertension Respiratory History: Reports: Sleep Apnea Other Respiratory History: uses CPAP Gastrointestinal History: Reports: Colon Polyp Genitourinary History: Reports: None Musculoskeletal History: Reports: Osteoarthritis Neurological History: Reports: None Psychiatric History: Reports: Depression Endocrine/Metabolic History: Reports: Obesity/BMI 30+ Hematologic History: Reports: None Immunologic History: Reports: None Oncologic (Cancer) History: Reports: None Dermatologic History: Reports: Psoriasis - Infectious Disease History Infectious Disease History: Reports: Chicken Pox, Measles - Past Surgical History Head Surgeries/Procedures: Reports: None HEENT Surgical History: Reports: None Cardiovascular Surgical History: Reports: None Respiratory Surgical History: Reports: None GI Surgical History: Reports: Colonoscopy Male Surgical History: Reports: None Endocrine Surgical History: Reports: None Neurological Surgical History: Reports: None Musculoskeletal Surgical History: Reports: None Oncologic Surgical History: Reports: None Dermatological Surgical History: Reports: None Social & Family History - Family History Family Medical History: Noncontributory - Tobacco Use Smoking Status *Q: Unknown Ever Smoked - Caffeine Use Caffeine Use: Reports: Coffee - Recreational Drug Use Recreational Drug Use: No H&P Review of Systems - Review of Systems: Review Of Systems: See Below General: Reports: Fever, Chills, Decreased Appetite HEENT: Reports: No Symptoms Pulmonary: Reports: No Symptoms Cardiovascular: Reports: No Symptoms Gastrointestinal: Reports: No Symptoms Genitourinary: Reports: No Symptoms Musculoskeletal: Reports: No Symptoms Skin: Reports: Change in Color Psychiatric: Reports: No Symptoms Neurological: Reports: No Symptoms Hematologic/Lymphatic: Reports: No Symptoms Immunologic: Reports: No Symptoms Exam - Exam Exam: See Below - Vital Signs Vital Signs: Last Vital Signs Temp 101.9 F H 09/13/19 17:23 Pulse 111 H 09/13/19 17:19 Resp 30 H 09/13/19 17:19 BP 104/61 09/13/19 17:19 Pulse Ox 92 L 09/13/19 17:19 Weight: 108.862 kg - Exam General: Alert, Oriented, Cooperative HEENT: Conjunctiva Clear, EOMI, Posterior Pharynx Clear, Pupils Equal, Pupils Reactive. No: Mucosa Moist & [place] Neck: Supple Lungs: Clear to Auscultation, Normal Respiratory Effort Cardiovascular: Regular Rate, Regular Rhythm GI/Abdominal Exam: Normal Bowel Sounds, Soft, Non-Tender Extremities: Increased Warmth, Redness Skin: Other (erythema right inner thigh with increase warmth, non tender, scabbed over lesion anterior right thigh) Neuro Extensive - Mental Status: Alert, Oriented x3 Neuro Extensive - Motor, Sensory, Reflexes: CN II-XII Intact Psychiatric: Alert, Normal Affect, Normal Mood - Patient Data Lab Results Last 24 hrs: Laboratory Results - last 24 hr 09/13/19 09/13/19 09/13/19 Range/Units 15:49 15:49 15:49 WBC 14.70 H (4.0-11.0) K/uL RBC 4.62 (4.50-5.90) M/uL Hgb 14.8 (13.0-17.0) g/dL Hct 43.3 (38.0-50.0) % MCV 93.7 (80.0-98.0) fL MCH 32.0 (27.0-32.0) pg MCHC 34.2 (31.0-37.0) g/dL RDW Std Deviation 46.4 (28.0-62.0) fl RDW Coeff of Ba 14 (11.0-15.0) % Plt Count 122 L (150-400) K/uL MPV 10.20 (7.40-12.00) fL Neut % (Auto) 93.2 H (48.0-80.0) % Lymph % (Auto) 3.8 L (16.0-40.0) % [place] % (Auto) 2.9 (0.0-15.0) % Eos % (Auto) 0.0 (0.0-7.0) % Baso % (Auto) 0.1 (0.0-1.5) % Neut # (Auto) 13.7 H (1.4-5.7) K/uL Lymph # (Auto) 0.6 (0.6-2.4) K/uL [place] # (Auto) 0.4 (0.0-0.8) K/uL Eos # (Auto) 0.0 (0.0-0.7) K/uL Baso # (Auto) 0.0 (0.0-0.1) K/uL Nucleated RBC % 0.0 /100WBC Nucleated RBCs # 0 K/uL ABG pH (7.35-7.45) ABG pCO2 (35-45) mmHG ABG pO2 (75-100) mmHG ABG HCO3 (22-26) mEq/L ABG Total CO2 ABG Base Excess (-2.0-2.0) Lactate 1.0 (0.20-2.00) mmol/L Sodium 135 L (136-148) mmol/L Potassium 3.6 (3.5-5.1) mmol/L Chloride 100 (98-107) mmol/L Carbon Dioxide 26.0 (21.0-32.0) mmol/L BUN 16 (7.0-18.0) mg/dL Creatinine 1.5 H (0.8-1.3) mg/dL Est Cr Clr Drug Dosing 43.85 mL/min Estimated GFR (MDRD) 47.7 ml/min Glucose 106 (74-106) mg/dL Calcium 8.6 (8.5-10.1) mg/dL Total Bilirubin 1.0 (0.2-1.0) mg/dL AST 26 (15-37) IU/L ALT 38 (14-63) IU/L Alkaline Phosphatase 71 (46-116) U/L Total Protein 7.2 (6.4-8.2) g/dL Albumin 3.4 (3.4-5.0) g/dL Globulin 3.8 (2.6-4.0) g/dL Albumin/Globulin Ratio 0.9 (0.9-1.6) Ethyl Alcohol < 3.0 mg/dL SARS-CoV-2 RNA (RT-PCR) (NEGATIVE) 09/13/19 09/13/19 Range/Units 16:03 16:05 WBC (4.0-11.0) K/uL RBC (4.50-5.90) M/uL Hgb (13.0-17.0) g/dL Hct (38.0-50.0) % MCV (80.0-98.0) fL MCH (27.0-32.0) pg MCHC (31.0-37.0) g/dL RDW Std Deviation (28.0-62.0) fl RDW Coeff of Ba (11.0-15.0) % Plt Count (150-400) K/uL MPV (7.40-12.00) fL Neut % (Auto) (48.0-80.0) % Lymph % (Auto) (16.0-40.0) % [place] % (Auto) (0.0-15.0) % Eos % (Auto) (0.0-7.0) % Baso % (Auto) (0.0-1.5) % Neut # (Auto) (1.4-5.7) K/uL Lymph # (Auto) (0.6-2.4) K/uL [place] # (Auto) (0.0-0.8) K/uL Eos # (Auto) (0.0-0.7) K/uL Baso # (Auto) (0.0-0.1) K/uL Nucleated RBC % /100WBC Nucleated RBCs # K/uL ABG pH 7.517 H (7.35-7.45) ABG pCO2 27 L (35-45) mmHG ABG pO2 56 L (75-100) mmHG ABG HCO3 22 (22-26) mEq/L ABG Total CO2 19.1 ABG Base Excess 0.6 (-2.0-2.0) Lactate (0.20-2.00) mmol/L Sodium (136-148) mmol/L Potassium (3.5-5.1) mmol/L Chloride (98-107) mmol/L Carbon Dioxide (21.0-32.0) mmol/L BUN (7.0-18.0) mg/dL Creatinine (0.8-1.3) mg/dL Est Cr Clr Drug Dosing mL/min Estimated GFR (MDRD) ml/min Glucose (74-106) mg/dL Calcium (8.5-10.1) mg/dL Total Bilirubin (0.2-1.0) mg/dL AST (15-37) IU/L ALT (14-63) IU/L Alkaline Phosphatase (46-116) U/L Total Protein (6.4-8.2) g/dL Albumin (3.4-5.0) g/dL Globulin (2.6-4.0) g/dL Albumin/Globulin Ratio (0.9-1.6) Ethyl Alcohol mg/dL SARS-CoV-2 RNA (RT-PCR) NEGATIVE (NEGATIVE) Result Diagrams: 09/13/19 15:49 09/13/19 15:49 Sepsis Event Note - Evaluation Sepsis Screening Result: No Definite Risk - Focused Exam Vital Signs: Vital Signs Temp Temp Pulse Resp BP Pulse Ox 09/13/19 17:23 101.9 F H 09/13/19 17:19 101.9 F H 111 H 30 H 104/61 92 L 09/13/19 16:14 102.1 F H 121 H 48 H 173/96 H 90 L Date Exam was Performed: 09/13/19 Time Exam was Performed: 19:01 Problem List Initiated/Reviewed/Updated: Yes Orders Last 24hrs: Active Orders 24 hr Category Date Time Status Cooling Warming Measures [RC] ASDIRECTED Care 09/13/19 15:51 Active EKG 12 Lead [EKG Documentation Completion] [RC] STAT Care 09/13/19 15:49 Active Chest wo Cont [CT] Stat Exams 09/13/19 17:52 Ordered Head wo Cont [CT] Stat Exams 09/13/19 17:35 Ordered CULTURE BLOOD [BC] Stat Lab 09/13/19 15:49 Received CULTURE BLOOD [BC] Stat Lab 09/13/19 16:00 Received UA W/MICROSCOPIC [URIN] Stat Lab 09/13/19 15:48 Ordered Piperacillin/Tazobactam [Piperacil-Tazobact] 3.375 gm Med 09/13/19 17:38 Active Sodium Chloride 0.9% [Normal Saline] 50 ml IV ONETIME Vancomycin 1 gm Med 09/13/19 17:36 Active Sodium Chloride 0.9% [Normal Saline (AdvBag)] 250 ml IV ONETIME cefTRIAXone [Rocephin] 1 gm Med 09/13/19 17:15 Active Sodium Chloride 0.9% [Normal Saline] 50 ml IV Q24H Blood Culture x2 Reflex Set [OM.PC] Stat Oth 09/13/19 15:51 Ordered Ice Pack [Ice Therapy] [OM.PC] Stat Oth 09/13/19 15:51 Ordered Medication Orders Ceftriaxone Sodium 1 gm/ (Sodium Chloride) 50 mls @ 100 mls/hr IV Q24H [facility] Last Admin: 09/13/19 17:23 Dose: 100 mls/hr Vancomycin HCl 1 gm/ Sodium (Chloride) 250 mls @ 166 mls/hr IV ONETIME ONE Stop: 09/13/19 19:06 Piperacillin Sod/Tazobactam (Sod 3.375 gm/ Sodium Chloride) 50 mls @ 100 mls/ hr IV ONETIME ONE Stop: 09/13/19 18:07 Assessment/Plan Comment:: 1. Admit 2. Code status- full 3. Vitals per routine 4. I/Os per routine 5. Diet- regular 6. DVT prophylaxis with heparin 7. Sepsis secondary to possible cellulitis vs pneumonia. Continue IV Vanco and Zosyn. Continue IVF. UA and BC pending. Tylenol for fever. Head and Chest CT pending. 8. AMS- resolved after fever improved. Continue to monitor. 9. JALYN- IVF <Michael Victoria - Last Filed: 09/14/19 11:34> H&P History of Present Illness - General Admit Problem/Dx: Admission Diagnosis/Problem Admission Diagnosis/Problem Cellulitis Exam - Vital Signs Vital Signs: Last Vital Signs Temp 38.5 C H 09/14/19 07:30 Pulse 92 09/14/19 07:30 Resp 20 09/14/19 07:30 BP 133/60 09/14/19 07:30 Pulse Ox 95 09/14/19 07:30 - Patient Data Lab Results Last 24 hrs: Laboratory Results - last 24 hr 09/13/19 09/13/19 09/13/19 Range/Units 15:49 15:49 15:49 WBC 14.70 H (4.0-11.0) K/uL RBC 4.62 (4.50-5.90) M/uL Hgb 14.8 (13.0-17.0) g/dL Hct 43.3 (38.0-50.0) % MCV 93.7 (80.0-98.0) fL MCH 32.0 (27.0-32.0) pg MCHC 34.2 (31.0-37.0) g/dL RDW Std Deviation 46.4 (28.0-62.0) fl RDW Coeff of Ba 14 (11.0-15.0) % Plt Count 122 L (150-400) K/uL MPV 10.20 (7.40-12.00) fL Neut % (Auto) 93.2 H (48.0-80.0) % Lymph % (Auto) 3.8 L (16.0-40.0) % [place] % (Auto) 2.9 (0.0-15.0) % Eos % (Auto) 0.0 (0.0-7.0) % Baso % (Auto) 0.1 (0.0-1.5) % Neut # (Auto) 13.7 H (1.4-5.7) K/uL Lymph # (Auto) 0.6 (0.6-2.4) K/uL [place] # (Auto) 0.4 (0.0-0.8) K/uL Eos # (Auto) 0.0 (0.0-0.7) K/uL Baso # (Auto) 0.0 (0.0-0.1) K/uL Add Manual Diff Neutrophils % (Manual) (48.0-80.0) % Band Neutrophils % % Lymphocytes % (Manual) (16.0-40.0) % Metamyelocytes % % Nucleated RBC % 0.0 /100WBC Absolute Seg Neuts (1.4-5.7) Band Neutrophils # Lymphocytes # (Manual) (0.6-2.4) Absolute Metamyelocyte Nucleated RBCs # 0 K/uL ABG pH (7.35-7.45) ABG pCO2 (35-45) mmHG ABG pO2 (75-100) mmHG ABG HCO3 (22-26) mEq/L ABG Total CO2 ABG Base Excess (-2.0-2.0) Lactate 1.0 (0.20-2.00) mmol/L Sodium 135 L (136-148) mmol/L Potassium 3.6 (3.5-5.1) mmol/L Chloride 100 (98-107) mmol/L Carbon Dioxide 26.0 (21.0-32.0) mmol/L BUN 16 (7.0-18.0) mg/dL Creatinine 1.5 H (0.8-1.3) mg/dL Est Cr Clr Drug Dosing 43.85 mL/min Estimated GFR (MDRD) 47.7 ml/min Glucose 106 (74-106) mg/dL Calcium 8.6 (8.5-10.1) mg/dL Magnesium (1.8-2.4) mg/dL Total Bilirubin 1.0 (0.2-1.0) mg/dL AST 26 (15-37) IU/L ALT 38 (14-63) IU/L Alkaline Phosphatase 71 (46-116) U/L Total Protein 7.2 (6.4-8.2) g/dL Albumin 3.4 (3.4-5.0) g/dL Globulin 3.8 (2.6-4.0) g/dL Albumin/Globulin Ratio 0.9 (0.9-1.6) Urine Color Urine Appearance Urine pH (5.0-8.0) Ur Specific [place] (1.001-1.035) Urine Protein (NEGATIVE) mg/dL Urine Glucose (UA) (NEGATIVE) mg/dL Urine Ketones (NEGATIVE) mg/dL Urine Occult Blood (NEGATIVE) Urine Nitrite (NEGATIVE) Urine Bilirubin (NEGATIVE) Urine Urobilinogen (<2.0) EU/dL Ur Leukocyte Esterase (NEGATIVE) Urine RBC (0-2/HPF) Urine WBC (0-5/HPF) Ur Epithelial Cells (NONE-FEW) Urine Bacteria (NEGATIVE) Ethyl Alcohol < 3.0 mg/dL SARS-CoV-2 RNA (RT-PCR) (NEGATIVE) 09/13/19 09/13/19 09/13/19 Range/Units 16:03 16:05 22:35 WBC (4.0-11.0) K/uL RBC (4.50-5.90) M/uL Hgb (13.0-17.0) g/dL Hct (38.0-50.0) % MCV (80.0-98.0) fL MCH (27.0-32.0) pg MCHC (31.0-37.0) g/dL RDW Std Deviation (28.0-62.0) fl RDW Coeff of Ba (11.0-15.0) % Plt Count (150-400) K/uL MPV (7.40-12.00) fL Neut % (Auto) (48.0-80.0) % Lymph % (Auto) (16.0-40.0) % [place] % (Auto) (0.0-15.0) % Eos % (Auto) (0.0-7.0) % Baso % (Auto) (0.0-1.5) % Neut # (Auto) (1.4-5.7) K/uL Lymph # (Auto) (0.6-2.4) K/uL [place] # (Auto) (0.0-0.8) K/uL Eos # (Auto) (0.0-0.7) K/uL Baso # (Auto) (0.0-0.1) K/uL Add Manual Diff Neutrophils % (Manual) (48.0-80.0) % Band Neutrophils % % Lymphocytes % (Manual) (16.0-40.0) % Metamyelocytes % % Nucleated RBC % /100WBC Absolute Seg Neuts (1.4-5.7) Band Neutrophils # Lymphocytes # (Manual) (0.6-2.4) Absolute Metamyelocyte Nucleated RBCs # K/uL ABG pH 7.517 H (7.35-7.45) ABG pCO2 27 L (35-45) mmHG ABG pO2 56 L (75-100) mmHG ABG HCO3 22 (22-26) mEq/L ABG Total CO2 19.1 ABG Base Excess 0.6 (-2.0-2.0) Lactate (0.20-2.00) mmol/L Sodium (136-148) mmol/L Potassium (3.5-5.1) mmol/L Chloride (98-107) mmol/L Carbon Dioxide (21.0-32.0) mmol/L BUN (7.0-18.0) mg/dL Creatinine (0.8-1.3) mg/dL Est Cr Clr Drug Dosing mL/min Estimated GFR (MDRD) ml/min Glucose (74-106) mg/dL Calcium (8.5-10.1) mg/dL Magnesium (1.8-2.4) mg/dL Total Bilirubin (0.2-1.0) mg/dL AST (15-37) IU/L ALT (14-63) IU/L Alkaline Phosphatase (46-116) U/L Total Protein (6.4-8.2) g/dL Albumin (3.4-5.0) g/dL Globulin (2.6-4.0) g/dL Albumin/Globulin Ratio (0.9-1.6) Urine Color YELLOW Urine Appearance CLEAR Urine pH 5.5 (5.0-8.0) Ur Specific [place] 1.025 (1.001-1.035) Urine Protein NEGATIVE (NEGATIVE) mg/dL Urine Glucose (UA) NEGATIVE (NEGATIVE) mg/dL Urine Ketones TRACE H (NEGATIVE) mg/dL Urine Occult Blood NEGATIVE (NEGATIVE) Urine Nitrite NEGATIVE (NEGATIVE) Urine Bilirubin NEGATIVE (NEGATIVE) Urine Urobilinogen 0.2 (<2.0) EU/dL Ur Leukocyte Esterase NEGATIVE (NEGATIVE) Urine RBC 0-1 (0-2/HPF) Urine WBC 0-1 (0-5/HPF) Ur Epithelial Cells RARE (NONE-FEW) Urine Bacteria RARE (NEGATIVE) Ethyl Alcohol mg/dL SARS-CoV-2 RNA (RT-PCR) NEGATIVE (NEGATIVE) 09/14/19 09/14/19 09/14/19 Range/Units 05:08 05:08 05:08 WBC 15.48 H (4.0-11.0) K/uL RBC 4.29 L (4.50-5.90) M/uL Hgb 13.7 (13.0-17.0) g/dL Hct 40.8 (38.0-50.0) % MCV 95.1 (80.0-98.0) fL MCH 31.9 (27.0-32.0) pg MCHC 33.6 (31.0-37.0) g/dL RDW Std Deviation 49.5 (28.0-62.0) fl RDW Coeff of Ba 14 (11.0-15.0) % Plt Count 113 L (150-400) K/uL MPV 10.40 (7.40-12.00) fL Neut % (Auto) (48.0-80.0) % Lymph % (Auto) (16.0-40.0) % [place] % (Auto) (0.0-15.0) % Eos % (Auto) (0.0-7.0) % Baso % (Auto) (0.0-1.5) % Neut # (Auto) (1.4-5.7) K/uL Lymph # (Auto) (0.6-2.4) K/uL [place] # (Auto) (0.0-0.8) K/uL Eos # (Auto) (0.0-0.7) K/uL Baso # (Auto) (0.0-0.1) K/uL Add Manual Diff YES Neutrophils % (Manual) 66 (48.0-80.0) % Band Neutrophils % 30 % Lymphocytes % (Manual) 3 L (16.0-40.0) % Metamyelocytes % 1 % Nucleated RBC % 0.0 /100WBC Absolute Seg Neuts 10.2 H (1.4-5.7) Band Neutrophils # 4.6 Lymphocytes # (Manual) 0.5 L (0.6-2.4) Absolute Metamyelocyte 0.2 Nucleated RBCs # 0 K/uL ABG pH (7.35-7.45) ABG pCO2 (35-45) mmHG ABG pO2 (75-100) mmHG ABG HCO3 (22-26) mEq/L ABG Total CO2 ABG Base Excess (-2.0-2.0) Lactate (0.20-2.00) mmol/L Sodium 138 (136-148) mmol/L Potassium 3.3 L (3.5-5.1) mmol/L Chloride 103 (98-107) mmol/L Carbon Dioxide 22.4 (21.0-32.0) mmol/L BUN 20 H (7.0-18.0) mg/dL Creatinine 1.4 H (0.8-1.3) mg/dL Est Cr Clr Drug Dosing 50.63 mL/min Estimated GFR (MDRD) 51.7 ml/min Glucose 106 (74-106) mg/dL Calcium 7.7 L (8.5-10.1) mg/dL Magnesium 1.5 L (1.8-2.4) mg/dL Total Bilirubin (0.2-1.0) mg/dL AST (15-37) IU/L ALT (14-63) IU/L Alkaline Phosphatase (46-116) U/L Total Protein (6.4-8.2) g/dL Albumin (3.4-5.0) g/dL Globulin (2.6-4.0) g/dL Albumin/Globulin Ratio (0.9-1.6) Urine Color Urine Appearance Urine pH (5.0-8.0) Ur Specific [place] (1.001-1.035) Urine Protein (NEGATIVE) mg/dL Urine Glucose (UA) (NEGATIVE) mg/dL Urine Ketones (NEGATIVE) mg/dL Urine Occult Blood (NEGATIVE) Urine Nitrite (NEGATIVE) Urine Bilirubin (NEGATIVE) Urine Urobilinogen (<2.0) EU/dL Ur Leukocyte Esterase (NEGATIVE) Urine RBC (0-2/HPF) Urine WBC (0-5/HPF) Ur Epithelial Cells (NONE-FEW) Urine Bacteria (NEGATIVE) Ethyl Alcohol mg/dL SARS-CoV-2 RNA (RT-PCR) (NEGATIVE) Result Diagrams: 09/14/19 05:08 09/14/19 05:08 Sepsis Event Note - Focused Exam Vital Signs: Vital Signs Temp Temp Pulse Resp BP Pulse Ox 09/14/19 07:30 38.5 C H 92 20 133/60 95 09/14/19 06:19 38.7 C H 09/14/19 04:00 37.9 C 94 20 125/73 95 09/14/19 00:00 36.6 C 89 18 132/78 96 Date Exam was Performed: 09/14/19 Time Exam was Performed: 11:34 Orders Last 24hrs: Active Orders 24 hr Category Date Time Status Admission Status [Patient Status] [ADT] Stat ADT 09/13/19 19:51 Active Cooling Warming Measures [RC] ASDIRECTED Care 09/13/19 15:51 Active EKG 12 Lead [EKG Documentation Completion] [RC] STAT Care 09/13/19 15:49 Active Intake and Output [RC] Q12H Care 09/13/19 18:57 Active Telemetry Monitoring [Cardiac Monitoring] [RC] Q8H Care 09/13/19 19:48 Active Vital Signs [RC] PER UNIT ROUTINE Care 09/13/19 18:57 Active Regular Diet [DIET] Diet 09/14/19 Breakfast Active Venous Doppler Lwr Ext Bi [US] Urgent Exams 09/14/19 10:03 Ordered C DIFFICILE AG/TOXIN W/REFLEX [RM] Routine Lab 09/14/19 08:36 Ordered CULTURE BLOOD [BC] Stat Lab 09/13/19 15:49 Received CULTURE BLOOD [BC] Stat Lab 09/13/19 16:00 Received FECAL LACTOFERRIN [MREF] Routine Lab 09/14/19 08:36 Ordered STOOL CULTURE/SHIGA TOXIN [MREF] Routine Lab 09/14/19 08:36 Ordered VANCOMYCIN TROUGH [CHEM] Timed Lab 09/17/19 19:30 Ordered Acetaminophen [Tylenol] Med 09/13/19 18:57 Active 650 mg PO Q4H PRN Heparin Sodium Med 09/13/19 21:45 Active 5,000 units SUBCUT BID Ondansetron [Zofran] Med 09/13/19 18:57 Active 4 mg IVPUSH Q4H PRN Pharmacy to Dose - Vancomycin Med 09/13/19 19:00 Active 1 dose .XX ASDIRECTED Piperacillin/Tazobactam [Piperacil-Tazobact] 3.375 gm Med 09/13/19 19:00 Active Sodium Chloride 0.9% [Normal Saline] 50 ml IV Q6H Sodium Chloride 0.9% [Normal Saline] 1,000 ml Med 09/13/19 19:00 Active IV ASDIRECTED VANCOmycin/Water for INJ (PEG) [VANCOmycin 1.5 GM/300 Med 09/14/19 20:00 Active ML Premix] 1.5 gm Premix Bag 1 bag IV Q24H atorvaSTATin [Lipitor] Med 09/14/19 21:00 Active 10 mg PO BEDTIME buPROPion [Wellbutrin SR] Med 09/14/19 09:00 Active 150 mg PO BID Blood Culture x2 Reflex Set [OM.PC] Stat Ot 09/13/19 15:51 Ordered CPAP [RESPCARE] Routine Oth 09/13/19 22:39 Active Ice Pack [Ice Therapy] [OM.PC] Stat Ot 09/13/19 15:51 Ordered Resuscitation Status Stat Resus Stat 09/13/19 18:57 Ordered Medication Orders Acetaminophen (Tylenol) 650 mg PO Q4H PRN PRN Reason: Pain/Fever Last Admin: 09/14/19 06:19 Dose: 650 mg Atorvastatin Calcium (Lipitor) 10 mg PO BEDTIME [facility] Bupropion HCl (Wellbutrin Sr) 150 mg PO BID [facility] Last Admin: 09/14/19 08:59 Dose: 150 mg Heparin Sodium (Porcine) (Heparin Sodium) 5,000 units SUBCUT BID [facility] Last Admin: 09/14/19 08:59 Dose: 5,000 units Admin: 09/13/19 22:25 Dose: 5,000 units Piperacillin Sod/Tazobactam (Sod 3.375 gm/ Sodium Chloride) 50 mls @ 100 mls/ hr IV Q6H [facility] Last Admin: 09/14/19 06:13 Dose: 100 mls/hr Infusion: 09/14/19 01:03 Dose: 100 mls/hr Admin: 09/14/19 00:33 Dose: 100 mls/hr Admin: 09/13/19 21:01 Dose: Not Given Sodium Chloride (Normal Saline) 1,000 mls @ 125 mls/hr IV ASDIRECTED [facility] Last Admin: 09/14/19 06:17 Dose: 125 mls/hr Infusion: 09/14/19 05:40 Dose: 125 mls/hr Admin: 09/13/19 21:40 Dose: 125 mls/hr Vancomycin HCl 1.5 gm/ Premix 300 mls @ 200 mls/hr IV Q24H [facility] Ondansetron HCl (Zofran) 4 mg IVPUSH Q4H PRN PRN Reason: Nausea/Vomiting Vancomycin HCl (Pharmacy To Dose - Vancomycin) 1 dose .XX ASDIRECTED [facility] Assessment/Plan Comment:: I performed a history and physical exam of the patient and discussed management with resident. I have reviewed the residents note and agree with documented findings and plan unless otherwise specified in my note.
[2019-09-13] MEDS ORDERED: Ondansetron 4 MG/2 ML SDV IVPUSH PRN (18:57)
[2019-09-13] MEDS ORDERED: Heparin Sodium 5,000 Units/ML Vial SUBCUT SCH (19:00)
--- NOTE | 2019-09-13 19:00 | CT ---
INDICATION: High fever, shortness of breath, change in mental status TECHNIQUE: CT head without contrast. COMPARISON: None FINDINGS: CSF spaces: Within normal limits for age. Brain parenchyma: The marin-white differentiation is normal. No sign of mass, hemorrhage, or midline shift. Skull base and calvarium: Mild sphenoid and bilateral maxillary sinus mucosal thickening. The visualized orbits are grossly unremarkable. No skull fractures. IMPRESSION: No gross intracranial abnormalities. Mild sphenoid and bilateral maxillary sinus mucosal thickening. Dictated by Tommie Jain MD @ 09/13/2019 6:57:53 PM Please note that all CT scans at this facility use dose modulation, iterative reconstruction, and/or weight-based dosing when appropriate to reduce radiation dose to as low as reasonably achievable. Dictated by: Tommie Jain MD @ 09/13/2019 18:57:59 (Electronically Signed)
--- NOTE | 2019-09-13 19:06 | CT ---
INDICATION: High fever and shortness of breath TECHNIQUE: CT chest without contrast. COMPARISON: None FINDINGS: Cardiovascular structures: Heart size is normal. Thoracic aorta and main pulmonary artery are normal in caliber. Mediastinum and jaydon: No sign of mass or adenopathy. Lungs: Clear. Pleura and pericardium: No effusions. Chest wall and axilla: No mass or adenopathy. Bones: No significant findings. Upper abdomen: Unremarkable. IMPRESSION: Unremarkable unenhanced chest CT, specifically no evidence for pneumonia. Dictated by Tommie Jain MD @ 09/13/2019 7:05:11 PM Please note that all CT scans at this facility use dose modulation, iterative reconstruction, and/or weight-based dosing when appropriate to reduce radiation dose to as low as reasonably achievable. Dictated by: Tommie Jain MD @ 09/13/2019 19:05:18 (Electronically Signed)
[2019-09-13] MEDS ORDERED: Vancomycin 2 GM in Sodium Chloride 0.9% 500 ML IV SCH (20:00)
[2019-09-13] MEDS: Piperacillin/Tazobactam 3.375 GM in Sodium Chloride 0.9% 50 ML IV SCH (21:01)
[2019-09-13] MEDS: Sodium Chloride 0.9% 1,000 ML IV SCH (21:40)
[2019-09-13] MEDS: Heparin Sodium 5,000 Units/ML Vial SUBCUT SCH (22:25)
[2019-09-14] MEDS: Piperacillin/Tazobactam 3.375 GM in Sodium Chloride 0.9% 50 ML IV SCH ×4 (00:33→19:04)
[2019-09-14] MEDS: Sodium Chloride 0.9% 1,000 ML IV SCH ×2 (06:17→15:32)
[2019-09-14] MEDS: Acetaminophen 325 MG Tab PO PRN ×2 (06:19→15:44)
[2019-09-14 06:25] LABS: CARBON DIOXIDE,CO2 22.4 mmol/L (21.0-32.0); POTASSIUM,K 3.3 mmol/L (3.5-5.1)
[2019-09-14] MEDS ORDERED: Potassium Chloride 20 MEQ Tab.ER PO ONE (07:17)
[2019-09-14] MEDS ORDERED: Magnesium Sulfate/Water 4 GM in Premix Bag 1 BAG IV ONE (08:36)
--- NOTE | 2019-09-14 08:42 | PCM.PN ---
<Roxanne Mueller - Last Filed: 09/14/19 11:07> - General Info Date of Service: 09/14/19 Subjective Update: Patient reports he feels ok, still feels warm. Had a temp of 101.6 F this AM. States he developed diarrhea, had 4 loose stools overnight, non bloody. Denies abdominal pain. - Review of Systems General: Reports: Fever HEENT: Reports: No Symptoms Pulmonary: Reports: No Symptoms Cardiovascular: Reports: No Symptoms Gastrointestinal: Reports: Diarrhea. Denies: Abdominal Pain, Nausea, Vomiting Genitourinary: Reports: No Symptoms Musculoskeletal: Reports: No Symptoms Skin: Reports: Rash Neurological: Reports: No Symptoms Psychiatric: Reports: No Symptoms - Patient Data Vitals - Most Recent: Last Vital Signs Temp 101.3 F H 09/14/19 07:30 Pulse 92 09/14/19 07:30 Resp 20 09/14/19 07:30 BP 133/60 09/14/19 07:30 Pulse Ox 95 09/14/19 07:30 Weight - Most Recent: 108.6 kg I&O - Last 24 Hours: Intake & Output 09/13/19 09/14/19 09/14/19 22:59 06:59 14:59 Intake Total 1750 Output Total 200 Balance 1550 Lab Results Last 24 Hours: Laboratory Results - last 24 hr 09/13/19 09/13/19 09/13/19 Range/Units 15:49 15:49 15:49 WBC 14.70 H (4.0-11.0) K/uL RBC 4.62 (4.50-5.90) M/uL Hgb 14.8 (13.0-17.0) g/dL Hct 43.3 (38.0-50.0) % MCV 93.7 (80.0-98.0) fL MCH 32.0 (27.0-32.0) pg MCHC 34.2 (31.0-37.0) g/dL RDW Std Deviation 46.4 (28.0-62.0) fl RDW Coeff of Ba 14 (11.0-15.0) % Plt Count 122 L (150-400) K/uL MPV 10.20 (7.40-12.00) fL Neut % (Auto) 93.2 H (48.0-80.0) % Lymph % (Auto) 3.8 L (16.0-40.0) % [place] % (Auto) 2.9 (0.0-15.0) % Eos % (Auto) 0.0 (0.0-7.0) % Baso % (Auto) 0.1 (0.0-1.5) % Neut # (Auto) 13.7 H (1.4-5.7) K/uL Lymph # (Auto) 0.6 (0.6-2.4) K/uL [place] # (Auto) 0.4 (0.0-0.8) K/uL Eos # (Auto) 0.0 (0.0-0.7) K/uL Baso # (Auto) 0.0 (0.0-0.1) K/uL Add Manual Diff Neutrophils % (Manual) (48.0-80.0) % Band Neutrophils % % Lymphocytes % (Manual) (16.0-40.0) % Metamyelocytes % % Nucleated RBC % 0.0 /100WBC Absolute Seg Neuts (1.4-5.7) Band Neutrophils # Lymphocytes # (Manual) (0.6-2.4) Absolute Metamyelocyte Nucleated RBCs # 0 K/uL ABG pH (7.35-7.45) ABG pCO2 (35-45) mmHG ABG pO2 (75-100) mmHG ABG HCO3 (22-26) mEq/L ABG Total CO2 ABG Base Excess (-2.0-2.0) Lactate 1.0 (0.20-2.00) mmol/L Sodium 135 L (136-148) mmol/L Potassium 3.6 (3.5-5.1) mmol/L Chloride 100 (98-107) mmol/L Carbon Dioxide 26.0 (21.0-32.0) mmol/L BUN 16 (7.0-18.0) mg/dL Creatinine 1.5 H (0.8-1.3) mg/dL Est Cr Clr Drug Dosing 43.85 mL/min Estimated GFR (MDRD) 47.7 ml/min Glucose 106 (74-106) mg/dL Calcium 8.6 (8.5-10.1) mg/dL Magnesium (1.8-2.4) mg/dL Total Bilirubin 1.0 (0.2-1.0) mg/dL AST 26 (15-37) IU/L ALT 38 (14-63) IU/L Alkaline Phosphatase 71 (46-116) U/L Total Protein 7.2 (6.4-8.2) g/dL Albumin 3.4 (3.4-5.0) g/dL Globulin 3.8 (2.6-4.0) g/dL Albumin/Globulin Ratio 0.9 (0.9-1.6) Urine Color Urine Appearance Urine pH (5.0-8.0) Ur Specific [place] (1.001-1.035) Urine Protein (NEGATIVE) mg/dL Urine Glucose (UA) (NEGATIVE) mg/dL Urine Ketones (NEGATIVE) mg/dL Urine Occult Blood (NEGATIVE) Urine Nitrite (NEGATIVE) Urine Bilirubin (NEGATIVE) Urine Urobilinogen (<2.0) EU/dL Ur Leukocyte Esterase (NEGATIVE) Urine RBC (0-2/HPF) Urine WBC (0-5/HPF) Ur Epithelial Cells (NONE-FEW) Urine Bacteria (NEGATIVE) Ethyl Alcohol < 3.0 mg/dL SARS-CoV-2 RNA (RT-PCR) (NEGATIVE) 09/13/19 09/13/19 09/13/19 Range/Units 16:03 16:05 22:35 WBC (4.0-11.0) K/uL RBC (4.50-5.90) M/uL Hgb (13.0-17.0) g/dL Hct (38.0-50.0) % MCV (80.0-98.0) fL MCH (27.0-32.0) pg MCHC (31.0-37.0) g/dL RDW Std Deviation (28.0-62.0) fl RDW Coeff of Ba (11.0-15.0) % Plt Count (150-400) K/uL MPV (7.40-12.00) fL Neut % (Auto) (48.0-80.0) % Lymph % (Auto) (16.0-40.0) % [place] % (Auto) (0.0-15.0) % Eos % (Auto) (0.0-7.0) % Baso % (Auto) (0.0-1.5) % Neut # (Auto) (1.4-5.7) K/uL Lymph # (Auto) (0.6-2.4) K/uL [place] # (Auto) (0.0-0.8) K/uL Eos # (Auto) (0.0-0.7) K/uL Baso # (Auto) (0.0-0.1) K/uL Add Manual Diff Neutrophils % (Manual) (48.0-80.0) % Band Neutrophils % % Lymphocytes % (Manual) (16.0-40.0) % Metamyelocytes % % Nucleated RBC % /100WBC Absolute Seg Neuts (1.4-5.7) Band Neutrophils # Lymphocytes # (Manual) (0.6-2.4) Absolute Metamyelocyte Nucleated RBCs # K/uL ABG pH 7.517 H (7.35-7.45) ABG pCO2 27 L (35-45) mmHG ABG pO2 56 L (75-100) mmHG ABG HCO3 22 (22-26) mEq/L ABG Total CO2 19.1 ABG Base Excess 0.6 (-2.0-2.0) Lactate (0.20-2.00) mmol/L Sodium (136-148) mmol/L Potassium (3.5-5.1) mmol/L Chloride (98-107) mmol/L Carbon Dioxide (21.0-32.0) mmol/L BUN (7.0-18.0) mg/dL Creatinine (0.8-1.3) mg/dL Est Cr Clr Drug Dosing mL/min Estimated GFR (MDRD) ml/min Glucose (74-106) mg/dL Calcium (8.5-10.1) mg/dL Magnesium (1.8-2.4) mg/dL Total Bilirubin (0.2-1.0) mg/dL AST (15-37) IU/L ALT (14-63) IU/L Alkaline Phosphatase (46-116) U/L Total Protein (6.4-8.2) g/dL Albumin (3.4-5.0) g/dL Globulin (2.6-4.0) g/dL Albumin/Globulin Ratio (0.9-1.6) Urine Color YELLOW Urine Appearance CLEAR Urine pH 5.5 (5.0-8.0) Ur Specific [place] 1.025 (1.001-1.035) Urine Protein NEGATIVE (NEGATIVE) mg/dL Urine Glucose (UA) NEGATIVE (NEGATIVE) mg/dL Urine Ketones TRACE H (NEGATIVE) mg/dL Urine Occult Blood NEGATIVE (NEGATIVE) Urine Nitrite NEGATIVE (NEGATIVE) Urine Bilirubin NEGATIVE (NEGATIVE) Urine Urobilinogen 0.2 (<2.0) EU/dL Ur Leukocyte Esterase NEGATIVE (NEGATIVE) Urine RBC 0-1 (0-2/HPF) Urine WBC 0-1 (0-5/HPF) Ur Epithelial Cells RARE (NONE-FEW) Urine Bacteria RARE (NEGATIVE) Ethyl Alcohol mg/dL SARS-CoV-2 RNA (RT-PCR) NEGATIVE (NEGATIVE) 09/14/19 09/14/19 09/14/19 Range/Units 05:08 05:08 05:08 WBC 15.48 H (4.0-11.0) K/uL RBC 4.29 L (4.50-5.90) M/uL Hgb 13.7 (13.0-17.0) g/dL Hct 40.8 (38.0-50.0) % MCV 95.1 (80.0-98.0) fL MCH 31.9 (27.0-32.0) pg MCHC 33.6 (31.0-37.0) g/dL RDW Std Deviation 49.5 (28.0-62.0) fl RDW Coeff of Ba 14 (11.0-15.0) % Plt Count 113 L (150-400) K/uL MPV 10.40 (7.40-12.00) fL Neut % (Auto) (48.0-80.0) % Lymph % (Auto) (16.0-40.0) % [place] % (Auto) (0.0-15.0) % Eos % (Auto) (0.0-7.0) % Baso % (Auto) (0.0-1.5) % Neut # (Auto) (1.4-5.7) K/uL Lymph # (Auto) (0.6-2.4) K/uL [place] # (Auto) (0.0-0.8) K/uL Eos # (Auto) (0.0-0.7) K/uL Baso # (Auto) (0.0-0.1) K/uL Add Manual Diff YES Neutrophils % (Manual) 66 (48.0-80.0) % Band Neutrophils % 30 % Lymphocytes % (Manual) 3 L (16.0-40.0) % Metamyelocytes % 1 % Nucleated RBC % 0.0 /100WBC Absolute Seg Neuts 10.2 H (1.4-5.7) Band Neutrophils # 4.6 Lymphocytes # (Manual) 0.5 L (0.6-2.4) Absolute Metamyelocyte 0.2 Nucleated RBCs # 0 K/uL ABG pH (7.35-7.45) ABG pCO2 (35-45) mmHG ABG pO2 (75-100) mmHG ABG HCO3 (22-26) mEq/L ABG Total CO2 ABG Base Excess (-2.0-2.0) Lactate (0.20-2.00) mmol/L Sodium 138 (136-148) mmol/L Potassium 3.3 L (3.5-5.1) mmol/L Chloride 103 (98-107) mmol/L Carbon Dioxide 22.4 (21.0-32.0) mmol/L BUN 20 H (7.0-18.0) mg/dL Creatinine 1.4 H (0.8-1.3) mg/dL Est Cr Clr Drug Dosing 50.63 mL/min Estimated GFR (MDRD) 51.7 ml/min Glucose 106 (74-106) mg/dL Calcium 7.7 L (8.5-10.1) mg/dL Magnesium 1.5 L (1.8-2.4) mg/dL Total Bilirubin (0.2-1.0) mg/dL AST (15-37) IU/L ALT (14-63) IU/L Alkaline Phosphatase (46-116) U/L Total Protein (6.4-8.2) g/dL Albumin (3.4-5.0) g/dL Globulin (2.6-4.0) g/dL Albumin/Globulin Ratio (0.9-1.6) Urine Color Urine Appearance Urine pH (5.0-8.0) Ur Specific [place] (1.001-1.035) Urine Protein (NEGATIVE) mg/dL Urine Glucose (UA) (NEGATIVE) mg/dL Urine Ketones (NEGATIVE) mg/dL Urine Occult Blood (NEGATIVE) Urine Nitrite (NEGATIVE) Urine Bilirubin (NEGATIVE) Urine Urobilinogen (<2.0) EU/dL Ur Leukocyte Esterase (NEGATIVE) Urine RBC (0-2/HPF) Urine WBC (0-5/HPF) Ur Epithelial Cells (NONE-FEW) Urine Bacteria (NEGATIVE) Ethyl Alcohol mg/dL SARS-CoV-2 RNA (RT-PCR) (NEGATIVE) Med Orders - Current: Current Medications Acetaminophen (Tylenol) 650 mg PO Q4H PRN PRN Reason: Pain/Fever Last Admin: 09/14/19 06:19 Dose: 650 mg Atorvastatin Calcium (Lipitor) 10 mg PO BEDTIME [facility] Bupropion HCl (Wellbutrin Sr) 150 mg PO BID [facility] Heparin Sodium (Porcine) (Heparin Sodium) 5,000 units SUBCUT BID [facility] Last Admin: 09/13/19 22:25 Dose: 5,000 units Ceftriaxone Sodium 1 gm/ (Sodium Chloride) 50 mls @ 100 mls/hr IV Q24H [facility] Last Admin: 09/13/19 17:23 Dose: 100 mls/hr Piperacillin Sod/Tazobactam (Sod 3.375 gm/ Sodium Chloride) 50 mls @ 100 mls/ hr IV Q6H [facility] Last Admin: 09/14/19 06:13 Dose: 100 mls/hr Sodium Chloride (Normal Saline) 1,000 mls @ 125 mls/hr IV ASDIRECTED [facility] Last Admin: 09/14/19 06:17 Dose: 125 mls/hr Vancomycin HCl 1.5 gm/ Premix 300 mls @ 200 mls/hr IV Q24H [facility] Magnesium Sulfate 4 gm/ Premix 100 mls @ 50 mls/hr IV ONETIME ONE Stop: 09/14/19 10:35 Ondansetron HCl (Zofran) 4 mg IVPUSH Q4H PRN PRN Reason: Nausea/Vomiting Vancomycin HCl (Pharmacy To Dose - Vancomycin) 1 dose .XX ASDIRECTED [facility] Discontinued Medications Heparin Sodium (Porcine) (Heparin Sodium) 5,000 units SUBCUT Q12H [facility] Last Admin: 09/13/19 22:25 Dose: Not Given Acetaminophen 1,000 mg/ Premix 100 mls @ 400 mls/hr IV NOW ONE Stop: 09/13/19 16:04 Last Admin: 09/13/19 16:25 Dose: 400 mls/hr Sodium Chloride (Normal Saline) 1,000 mls @ 999 mls/hr IV .BOLUS ONE Stop: 09/13/19 16:49 Last Admin: 09/13/19 16:25 Dose: 999 mls/hr Piperacillin Sod/Tazobactam (Sod 3.375 gm/ Sodium Chloride) 50 mls @ 100 mls/ hr IV ONETIME ONE Stop: 09/13/19 18:07 Last Admin: 09/13/19 19:15 Dose: 100 mls/hr Vancomycin HCl 2 gm/ Sodium (Chloride) 500 mls @ 333.333 mls/hr IV Q24H [facility] Last Admin: 09/13/19 20:06 Dose: 333.333 mls/hr Ibuprofen (Motrin) 600 mg PO ONETIME ONE Stop: 09/13/19 17:17 Last Admin: 09/13/19 17:23 Dose: 600 mg Potassium Chloride (Klor-Con M20) 40 meq PO ONETIME ONE Stop: 09/14/19 07:18 Last Admin: 09/14/19 07:34 Dose: 40 meq - Exam General: Alert, Oriented, Cooperative Lungs: Clear to Auscultation, Normal Respiratory Effort Cardiovascular: Regular Rate, Regular Rhythm GI/Abdominal Exam: Normal Bowel Sounds, Soft, Non-Tender, Pelvis Stable Skin: Rash (erythema inside right this) Neurological: No New Focal Deficit Psy/Mental Status: Alert, Normal Affect, Normal Mood Sepsis Event Note - Evaluation Sepsis Screening Result: Sepsis Risk - Focused Exam Vital Signs: Vital Signs Temp Temp Pulse Resp BP Pulse Ox 09/14/19 07:30 101.3 F H 92 20 133/60 95 09/14/19 06:19 101.6 F H 09/14/19 04:00 100.2 F 94 20 125/73 95 09/14/19 00:00 97.9 F 89 18 132/78 96 09/13/19 21:30 97 F 94 24 H 91/42 L 96 09/13/19 21:13 94 24 H 99/55 L 94 L Date Exam was Performed: 09/14/19 Time Exam was Performed: 11:07 - Problem List Review Problem List Initiated/Reviewed/Updated: Yes - My Orders Last 24 Hours: My Active Orders 09/13/19 18:57 Intake and Output [RC] Q12H Vital Signs [RC] PER UNIT ROUTINE Acetaminophen [Tylenol] 650 mg PO Q4H PRN Ondansetron [Zofran] 4 mg IVPUSH Q4H PRN Resuscitation Status Stat 09/13/19 19:00 Pharmacy to Dose - Vancomycin 1 dose .XX ASDIRECTED Piperacillin/Tazobactam [Piperacil-Tazobact] 3.375 gm Sodium Chloride 0.9% [ Normal Saline] 50 ml IV Q6H Sodium Chloride 0.9% [Normal Saline] 1,000 ml IV ASDIRECTED 09/13/19 21:45 Heparin Sodium 5,000 units SUBCUT BID 09/14/19 08:36 C DIFFICILE AG/TOXIN W/REFLEX [RM] Routine FECAL LACTOFERRIN [MREF] Routine STOOL CULTURE/SHIGA TOXIN [MREF] Routine Magnesium Sulfate/Water [Magnesium Sulfate in Water Premix] 4 gm Premix Bag 1 bag IV ONETIME 09/14/19 09:00 buPROPion [Wellbutrin SR] 150 mg PO BID 09/14/19 21:00 atorvaSTATin [Lipitor] 10 mg PO BEDTIME 09/14/19 Breakfast Regular Diet [DIET] - Plan Plan:: 1. Sepsis secondary to possible cellulitis -Chest CT did not show any pneumonia. Head CT was negative. UA positive for ketones, no infection. Continue IV Vanco and Zosyn. Continue IVF. Tylenol for fever. Blood cultures pending. Will get US Doppler of bilateral legs to rule out DVT as source of fever. 2. AMS- resolved after fever improved. Continue to monitor. 3. JALYN- IVF 4. Hypokalemia- will replace and recheck in AM 5. Hypomagnesemia- will replace and recheck in AM 6. Diarrhea- stool studies ordered. Denies abdominal pain. <Michael Victoria - Last Filed: 09/14/19 11:34> - Patient Data Vitals - Most Recent: Last Vital Signs Temp 38.5 C H 09/14/19 07:30 Pulse 92 09/14/19 07:30 Resp 20 09/14/19 07:30 BP 133/60 09/14/19 07:30 Pulse Ox 95 09/14/19 07:30 I&O - Last 24 Hours: Intake & Output 09/13/19 09/14/19 09/14/19 22:59 06:59 14:59 Intake Total 1750 Output Total 200 Balance 1550 Lab Results Last 24 Hours: Laboratory Results - last 24 hr 09/13/19 09/13/19 09/13/19 Range/Units 15:49 15:49 15:49 WBC 14.70 H (4.0-11.0) K/uL RBC 4.62 (4.50-5.90) M/uL Hgb 14.8 (13.0-17.0) g/dL Hct 43.3 (38.0-50.0) % MCV 93.7 (80.0-98.0) fL MCH 32.0 (27.0-32.0) pg MCHC 34.2 (31.0-37.0) g/dL RDW Std Deviation 46.4 (28.0-62.0) fl RDW Coeff of Ba 14 (11.0-15.0) % Plt Count 122 L (150-400) K/uL MPV 10.20 (7.40-12.00) fL Neut % (Auto) 93.2 H (48.0-80.0) % Lymph % (Auto) 3.8 L (16.0-40.0) % [place] % (Auto) 2.9 (0.0-15.0) % Eos % (Auto) 0.0 (0.0-7.0) % Baso % (Auto) 0.1 (0.0-1.5) % Neut # (Auto) 13.7 H (1.4-5.7) K/uL Lymph # (Auto) 0.6 (0.6-2.4) K/uL [place] # (Auto) 0.4 (0.0-0.8) K/uL Eos # (Auto) 0.0 (0.0-0.7) K/uL Baso # (Auto) 0.0 (0.0-0.1) K/uL Add Manual Diff Neutrophils % (Manual) (48.0-80.0) % Band Neutrophils % % Lymphocytes % (Manual) (16.0-40.0) % Metamyelocytes % % Nucleated RBC % 0.0 /100WBC Absolute Seg Neuts (1.4-5.7) Band Neutrophils # Lymphocytes # (Manual) (0.6-2.4) Absolute Metamyelocyte Nucleated RBCs # 0 K/uL ABG pH (7.35-7.45) ABG pCO2 (35-45) mmHG ABG pO2 (75-100) mmHG ABG HCO3 (22-26) mEq/L ABG Total CO2 ABG Base Excess (-2.0-2.0) Lactate 1.0 (0.20-2.00) mmol/L Sodium 135 L (136-148) mmol/L Potassium 3.6 (3.5-5.1) mmol/L Chloride 100 (98-107) mmol/L Carbon Dioxide 26.0 (21.0-32.0) mmol/L BUN 16 (7.0-18.0) mg/dL Creatinine 1.5 H (0.8-1.3) mg/dL Est Cr Clr Drug Dosing 43.85 mL/min Estimated GFR (MDRD) 47.7 ml/min Glucose 106 (74-106) mg/dL Calcium 8.6 (8.5-10.1) mg/dL Magnesium (1.8-2.4) mg/dL Total Bilirubin 1.0 (0.2-1.0) mg/dL AST 26 (15-37) IU/L ALT 38 (14-63) IU/L Alkaline Phosphatase 71 (46-116) U/L Total Protein 7.2 (6.4-8.2) g/dL Albumin 3.4 (3.4-5.0) g/dL Globulin 3.8 (2.6-4.0) g/dL Albumin/Globulin Ratio 0.9 (0.9-1.6) Urine Color Urine Appearance Urine pH (5.0-8.0) Ur Specific [place] (1.001-1.035) Urine Protein (NEGATIVE) mg/dL Urine Glucose (UA) (NEGATIVE) mg/dL Urine Ketones (NEGATIVE) mg/dL Urine Occult Blood (NEGATIVE) Urine Nitrite (NEGATIVE) Urine Bilirubin (NEGATIVE) Urine Urobilinogen (<2.0) EU/dL Ur Leukocyte Esterase (NEGATIVE) Urine RBC (0-2/HPF) Urine WBC (0-5/HPF) Ur Epithelial Cells (NONE-FEW) Urine Bacteria (NEGATIVE) Ethyl Alcohol < 3.0 mg/dL SARS-CoV-2 RNA (RT-PCR) (NEGATIVE) 09/13/19 09/13/19 09/13/19 Range/Units 16:03 16:05 22:35 WBC (4.0-11.0) K/uL RBC (4.50-5.90) M/uL Hgb (13.0-17.0) g/dL Hct (38.0-50.0) % MCV (80.0-98.0) fL MCH (27.0-32.0) pg MCHC (31.0-37.0) g/dL RDW Std Deviation (28.0-62.0) fl RDW Coeff of Ba (11.0-15.0) % Plt Count (150-400) K/uL MPV (7.40-12.00) fL Neut % (Auto) (48.0-80.0) % Lymph % (Auto) (16.0-40.0) % [place] % (Auto) (0.0-15.0) % Eos % (Auto) (0.0-7.0) % Baso % (Auto) (0.0-1.5) % Neut # (Auto) (1.4-5.7) K/uL Lymph # (Auto) (0.6-2.4) K/uL [place] # (Auto) (0.0-0.8) K/uL Eos # (Auto) (0.0-0.7) K/uL Baso # (Auto) (0.0-0.1) K/uL Add Manual Diff Neutrophils % (Manual) (48.0-80.0) % Band Neutrophils % % Lymphocytes % (Manual) (16.0-40.0) % Metamyelocytes % % Nucleated RBC % /100WBC Absolute Seg Neuts (1.4-5.7) Band Neutrophils # Lymphocytes # (Manual) (0.6-2.4) Absolute Metamyelocyte Nucleated RBCs # K/uL ABG pH 7.517 H (7.35-7.45) ABG pCO2 27 L (35-45) mmHG ABG pO2 56 L (75-100) mmHG ABG HCO3 22 (22-26) mEq/L ABG Total CO2 19.1 ABG Base Excess 0.6 (-2.0-2.0) Lactate (0.20-2.00) mmol/L Sodium (136-148) mmol/L Potassium (3.5-5.1) mmol/L Chloride (98-107) mmol/L Carbon Dioxide (21.0-32.0) mmol/L BUN (7.0-18.0) mg/dL Creatinine (0.8-1.3) mg/dL Est Cr Clr Drug Dosing mL/min Estimated GFR (MDRD) ml/min Glucose (74-106) mg/dL Calcium (8.5-10.1) mg/dL Magnesium (1.8-2.4) mg/dL Total Bilirubin (0.2-1.0) mg/dL AST (15-37) IU/L ALT (14-63) IU/L Alkaline Phosphatase (46-116) U/L Total Protein (6.4-8.2) g/dL Albumin (3.4-5.0) g/dL Globulin (2.6-4.0) g/dL Albumin/Globulin Ratio (0.9-1.6) Urine Color YELLOW Urine Appearance CLEAR Urine pH 5.5 (5.0-8.0) Ur Specific [place] 1.025 (1.001-1.035) Urine Protein NEGATIVE (NEGATIVE) mg/dL Urine Glucose (UA) NEGATIVE (NEGATIVE) mg/dL Urine Ketones TRACE H (NEGATIVE) mg/dL Urine Occult Blood NEGATIVE (NEGATIVE) Urine Nitrite NEGATIVE (NEGATIVE) Urine Bilirubin NEGATIVE (NEGATIVE) Urine Urobilinogen 0.2 (<2.0) EU/dL Ur Leukocyte Esterase NEGATIVE (NEGATIVE) Urine RBC 0-1 (0-2/HPF) Urine WBC 0-1 (0-5/HPF) Ur Epithelial Cells RARE (NONE-FEW) Urine Bacteria RARE (NEGATIVE) Ethyl Alcohol mg/dL SARS-CoV-2 RNA (RT-PCR) NEGATIVE (NEGATIVE) 09/14/19 09/14/19 09/14/19 Range/Units 05:08 05:08 05:08 WBC 15.48 H (4.0-11.0) K/uL RBC 4.29 L (4.50-5.90) M/uL Hgb 13.7 (13.0-17.0) g/dL Hct 40.8 (38.0-50.0) % MCV 95.1 (80.0-98.0) fL MCH 31.9 (27.0-32.0) pg MCHC 33.6 (31.0-37.0) g/dL RDW Std Deviation 49.5 (28.0-62.0) fl RDW Coeff of Ba 14 (11.0-15.0) % Plt Count 113 L (150-400) K/uL MPV 10.40 (7.40-12.00) fL Neut % (Auto) (48.0-80.0) % Lymph % (Auto) (16.0-40.0) % [place] % (Auto) (0.0-15.0) % Eos % (Auto) (0.0-7.0) % Baso % (Auto) (0.0-1.5) % Neut # (Auto) (1.4-5.7) K/uL Lymph # (Auto) (0.6-2.4) K/uL [place] # (Auto) (0.0-0.8) K/uL Eos # (Auto) (0.0-0.7) K/uL Baso # (Auto) (0.0-0.1) K/uL Add Manual Diff YES Neutrophils % (Manual) 66 (48.0-80.0) % Band Neutrophils % 30 % Lymphocytes % (Manual) 3 L (16.0-40.0) % Metamyelocytes % 1 % Nucleated RBC % 0.0 /100WBC Absolute Seg Neuts 10.2 H (1.4-5.7) Band Neutrophils # 4.6 Lymphocytes # (Manual) 0.5 L (0.6-2.4) Absolute Metamyelocyte 0.2 Nucleated RBCs # 0 K/uL ABG pH (7.35-7.45) ABG pCO2 (35-45) mmHG ABG pO2 (75-100) mmHG ABG HCO3 (22-26) mEq/L ABG Total CO2 ABG Base Excess (-2.0-2.0) Lactate (0.20-2.00) mmol/L Sodium 138 (136-148) mmol/L Potassium 3.3 L (3.5-5.1) mmol/L Chloride 103 (98-107) mmol/L Carbon Dioxide 22.4 (21.0-32.0) mmol/L BUN 20 H (7.0-18.0) mg/dL Creatinine 1.4 H (0.8-1.3) mg/dL Est Cr Clr Drug Dosing 50.63 mL/min Estimated GFR (MDRD) 51.7 ml/min Glucose 106 (74-106) mg/dL Calcium 7.7 L (8.5-10.1) mg/dL Magnesium 1.5 L (1.8-2.4) mg/dL Total Bilirubin (0.2-1.0) mg/dL AST (15-37) IU/L ALT (14-63) IU/L Alkaline Phosphatase (46-116) U/L Total Protein (6.4-8.2) g/dL Albumin (3.4-5.0) g/dL Globulin (2.6-4.0) g/dL Albumin/Globulin Ratio (0.9-1.6) Urine Color Urine Appearance Urine pH (5.0-8.0) Ur Specific [place] (1.001-1.035) Urine Protein (NEGATIVE) mg/dL Urine Glucose (UA) (NEGATIVE) mg/dL Urine Ketones (NEGATIVE) mg/dL Urine Occult Blood (NEGATIVE) Urine Nitrite (NEGATIVE) Urine Bilirubin (NEGATIVE) Urine Urobilinogen (<2.0) EU/dL Ur Leukocyte Esterase (NEGATIVE) Urine RBC (0-2/HPF) Urine WBC (0-5/HPF) Ur Epithelial Cells (NONE-FEW) Urine Bacteria (NEGATIVE) Ethyl Alcohol mg/dL SARS-CoV-2 RNA (RT-PCR) (NEGATIVE) Med Orders - Current: Current Medications Acetaminophen (Tylenol) 650 mg PO Q4H PRN PRN Reason: Pain/Fever Last Admin: 09/14/19 06:19 Dose: 650 mg Atorvastatin Calcium (Lipitor) 10 mg PO BEDTIME [facility] Bupropion HCl (Wellbutrin Sr) 150 mg PO BID [facility] Last Admin: 09/14/19 08:59 Dose: 150 mg Heparin Sodium (Porcine) (Heparin Sodium) 5,000 units SUBCUT BID [facility] Last Admin: 09/14/19 08:59 Dose: 5,000 units Piperacillin Sod/Tazobactam (Sod 3.375 gm/ Sodium Chloride) 50 mls @ 100 mls/ hr IV Q6H [facility] Last Admin: 09/14/19 06:13 Dose: 100 mls/hr Sodium Chloride (Normal Saline) 1,000 mls @ 125 mls/hr IV ASDIRECTED [facility] Last Admin: 09/14/19 06:17 Dose: 125 mls/hr Vancomycin HCl 1.5 gm/ Premix 300 mls @ 200 mls/hr IV Q24H [facility] Ondansetron HCl (Zofran) 4 mg IVPUSH Q4H PRN PRN Reason: Nausea/Vomiting Vancomycin HCl (Pharmacy To Dose - Vancomycin) 1 dose .XX ASDIRECTED [facility] Discontinued Medications Heparin Sodium (Porcine) (Heparin Sodium) 5,000 units SUBCUT Q12H [facility] Last Admin: 09/13/19 22:25 Dose: Not Given Acetaminophen 1,000 mg/ Premix 100 mls @ 400 mls/hr IV NOW ONE Stop: 09/13/19 16:04 Last Admin: 09/13/19 16:25 Dose: 400 mls/hr Sodium Chloride (Normal Saline) 1,000 mls @ 999 mls/hr IV .BOLUS ONE Stop: 09/13/19 16:49 Last Admin: 09/13/19 16:25 Dose: 999 mls/hr Ceftriaxone Sodium 1 gm/ (Sodium Chloride) 50 mls @ 100 mls/hr IV Q24H [facility] Last Admin: 09/13/19 17:23 Dose: 100 mls/hr Piperacillin Sod/Tazobactam (Sod 3.375 gm/ Sodium Chloride) 50 mls @ 100 mls/ hr IV ONETIME ONE Stop: 09/13/19 18:07 Last Admin: 09/13/19 19:15 Dose: 100 mls/hr Vancomycin HCl 2 gm/ Sodium (Chloride) 500 mls @ 333.333 mls/hr IV Q24H [facility] Last Admin: 09/13/19 20:06 Dose: 333.333 mls/hr Magnesium Sulfate 4 gm/ Premix 100 mls @ 50 mls/hr IV ONETIME ONE Stop: 09/14/19 10:35 Last Admin: 09/14/19 09:00 Dose: 50 mls/hr Ibuprofen (Motrin) 600 mg PO ONETIME ONE Stop: 09/13/19 17:17 Last Admin: 09/13/19 17:23 Dose: 600 mg Potassium Chloride (Klor-Con M20) 40 meq PO ONETIME ONE Stop: 09/14/19 07:18 Last Admin: 09/14/19 07:34 Dose: 40 meq Sepsis Event Note - Focused Exam Vital Signs: Vital Signs Temp Temp Pulse Resp BP Pulse Ox 09/14/19 07:30 38.5 C H 92 20 133/60 95 09/14/19 06:19 38.7 C H 09/14/19 04:00 37.9 C 94 20 125/73 95 09/14/19 00:00 36.6 C 89 18 132/78 96 Date Exam was Performed: 09/14/19 Time Exam was Performed: 11:34 - My Orders Last 24 Hours: My Active Orders 09/13/19 19:48 Telemetry Monitoring [Cardiac Monitoring] [RC] Q8H 09/13/19 22:39 CPAP [RESPCARE] Routine 09/14/19 20:00 VANCOmycin/Water for INJ (PEG) [VANCOmycin 1.5 GM/300 ML Premix] 1.5 gm Premix Bag 1 bag IV Q24H - Plan Plan:: I have seen and evaluated the patient and agree with the residents note unless specified in my note
[2019-09-14] MEDS: buPROPion 150 MG Tab.SR PO SCH ×2 (08:59→20:02)
[2019-09-14] MEDS: Heparin Sodium 5,000 Units/ML Vial SUBCUT SCH ×2 (08:59→20:02)
--- NOTE | 2019-09-14 13:23 | US ---
Bilateral lower extremity deep venous ultrasound: Duplex and color Doppler evaluation was obtained of the right and left common femoral, superficial femoral, popliteal, posterior tibial and peroneal veins. Findings: Normal compression and Doppler blood flow is seen within the deep veins. Lymph nodes are noted within the groin regions believed to be within normal limits. Impression: 1. No evidence of deep venous thrombosis within either the right or left lower extremities. Diagnostic code #1 This report was dictated in MDT
[2019-09-14] MEDS: Vancomycin 125 MG Cap PO SCH (18:01)
[2019-09-14] MEDS: atorvaSTATin 10 MG Tab PO SCH (20:02)
[2019-09-15] MEDS: Piperacillin/Tazobactam 3.375 GM in Sodium Chloride 0.9% 50 ML IV SCH ×4 (00:04→18:32)
[2019-09-15] MEDS: Vancomycin 125 MG Cap PO SCH ×5 (00:04→23:41)
[2019-09-15] MEDS: Sodium Chloride 0.9% 1,000 ML IV SCH ×3 (00:15→18:33)
[2019-09-15] MEDS: Acetaminophen 325 MG Tab PO PRN (04:10)
[2019-09-15 06:06] LABS: CARBON DIOXIDE,CO2 19.6 mmol/L (21.0-32.0); POTASSIUM,K 3.4 mmol/L (3.5-5.1)
[2019-09-15] MEDS ORDERED: Potassium Chloride 20 MEQ Tab.ER PO ONE (07:20)
--- NOTE | 2019-09-15 08:32 | PCM.PN ---
- General Info Date of Service: 09/15/19 Subjective Update: Patient reports that he feels fine today. Had fevers all night. Diarrhea episodes are now less frequent after starting PO Vancomycin for Cdiff. Reports good appetite. - Review of Systems General: Reports: Fever HEENT: Reports: No Symptoms Pulmonary: Reports: No Symptoms Cardiovascular: Reports: No Symptoms Gastrointestinal: Reports: Diarrhea. Denies: Abdominal Pain, Nausea, Vomiting Genitourinary: Reports: No Symptoms Musculoskeletal: Reports: No Symptoms Skin: Reports: Rash Neurological: Reports: No Symptoms Psychiatric: Reports: No Symptoms - Patient Data Vitals - Most Recent: Last Vital Signs Temp 101.0 F H 09/15/19 04:10 Pulse 94 09/15/19 04:10 Resp 20 09/15/19 04:10 BP 135/78 09/15/19 04:10 Pulse Ox 93 L 09/15/19 04:10 Weight - Most Recent: 108.6 kg I&O - Last 24 Hours: Intake & Output 09/14/19 09/15/19 09/15/19 22:59 06:59 14:59 Intake Total 2496 2475 Balance 2496 2475 Lab Results Last 24 Hours: Laboratory Results - last 24 hr 09/15/19 09/15/19 Range/Units 04:52 04:52 WBC 10.59 (4.0-11.0) K/uL RBC 4.22 L (4.50-5.90) M/uL Hgb 13.3 (13.0-17.0) g/dL Hct 39.9 (38.0-50.0) % MCV 94.5 (80.0-98.0) fL MCH 31.5 (27.0-32.0) pg MCHC 33.3 (31.0-37.0) g/dL RDW Std Deviation 49.4 (28.0-62.0) fl RDW Coeff of Ba 14 (11.0-15.0) % Plt Count 133 L (150-400) K/uL MPV 10.60 (7.40-12.00) fL Add Manual Diff YES Neutrophils % (Manual) 53 (48.0-80.0) % Band Neutrophils % 37 % Lymphocytes % (Manual) 8 L (16.0-40.0) % Monocytes % (Manual) 2 (0.0-15.0) % Nucleated RBC % 0.0 /100WBC Absolute Seg Neuts 5.6 (1.4-5.7) Band Neutrophils # 3.9 Lymphocytes # (Manual) 0.8 (0.6-2.4) Monocytes # (Manual) 0.2 (0.0-0.8) Nucleated RBCs # 0 K/uL Sodium 134 L (136-148) mmol/L Potassium 3.4 L (3.5-5.1) mmol/L Chloride 102 (98-107) mmol/L Carbon Dioxide 19.6 L (21.0-32.0) mmol/L BUN 16 (7.0-18.0) mg/dL Creatinine 1.3 (0.8-1.3) mg/dL Est Cr Clr Drug Dosing 54.53 mL/min Estimated GFR (MDRD) 56.3 ml/min Glucose 102 (74-106) mg/dL Calcium 8.0 L (8.5-10.1) mg/dL Magnesium 2.4 (1.8-2.4) mg/dL Yash Results Last 24 Hours: Microbiology 09/13/19 16:00 Aerobic Blood Culture - Preliminary Blood - Venous - Lab Draw NO GROWTH AFTER 1 DAY Anaerobic Blood Culture - Preliminary NO GROWTH AFTER 1 DAY 09/14/19 15:00 C. difficile Antigen & Toxins A,B - Final Stool / Feces 09/13/19 15:49 Aerobic Blood Culture - Preliminary Blood - Venous NO GROWTH AFTER 1 DAY Anaerobic Blood Culture - Preliminary NO GROWTH AFTER 1 DAY Med Orders - Current: Current Medications Acetaminophen (Tylenol) 650 mg PO Q4H PRN PRN Reason: Pain/Fever Last Admin: 09/15/19 04:10 Dose: 650 mg Atorvastatin Calcium (Lipitor) 10 mg PO BEDTIME [facility] Last Admin: 09/14/19 20:02 Dose: 10 mg Bupropion HCl (Wellbutrin Sr) 150 mg PO BID [facility] Last Admin: 09/14/19 20:02 Dose: 150 mg Heparin Sodium (Porcine) (Heparin Sodium) 5,000 units SUBCUT BID [facility] Last Admin: 09/14/19 20:02 Dose: 5,000 units Piperacillin Sod/Tazobactam (Sod 3.375 gm/ Sodium Chloride) 50 mls @ 100 mls/ hr IV Q6H [facility] Last Admin: 09/15/19 06:17 Dose: 100 mls/hr Sodium Chloride (Normal Saline) 1,000 mls @ 125 mls/hr IV ASDIRECTED [facility] Last Admin: 09/15/19 00:15 Dose: 125 mls/hr Vancomycin HCl 1.5 gm/ Premix 300 mls @ 200 mls/hr IV Q24H [facility] Last Admin: 09/14/19 19:59 Dose: 200 mls/hr Ondansetron HCl (Zofran) 4 mg IVPUSH Q4H PRN PRN Reason: Nausea/Vomiting Tamsulosin HCl (Flomax) 0.4 mg PO DAILY [facility] Vancomycin HCl (Pharmacy To Dose - Vancomycin) 1 dose .XX ASDIRECTED [facility] Vancomycin HCl (Vancomycin) 125 mg PO QID [facility] Last Admin: 09/15/19 06:17 Dose: 125 mg Discontinued Medications Heparin Sodium (Porcine) (Heparin Sodium) 5,000 units SUBCUT Q12H [facility] Last Admin: 09/13/19 22:25 Dose: Not Given Acetaminophen 1,000 mg/ Premix 100 mls @ 400 mls/hr IV NOW ONE Stop: 09/13/19 16:04 Last Admin: 09/13/19 16:25 Dose: 400 mls/hr Sodium Chloride (Normal Saline) 1,000 mls @ 999 mls/hr IV .BOLUS ONE Stop: 09/13/19 16:49 Last Admin: 09/13/19 16:25 Dose: 999 mls/hr Ceftriaxone Sodium 1 gm/ (Sodium Chloride) 50 mls @ 100 mls/hr IV Q24H [facility] Last Admin: 09/13/19 17:23 Dose: 100 mls/hr Piperacillin Sod/Tazobactam (Sod 3.375 gm/ Sodium Chloride) 50 mls @ 100 mls/ hr IV ONETIME ONE Stop: 09/13/19 18:07 Last Admin: 09/13/19 19:15 Dose: 100 mls/hr Vancomycin HCl 2 gm/ Sodium (Chloride) 500 mls @ 333.333 mls/hr IV Q24H [facility] Last Admin: 09/13/19 20:06 Dose: 333.333 mls/hr Magnesium Sulfate 4 gm/ Premix 100 mls @ 50 mls/hr IV ONETIME ONE Stop: 09/14/19 10:35 Last Admin: 09/14/19 09:00 Dose: 50 mls/hr Ibuprofen (Motrin) 600 mg PO ONETIME ONE Stop: 09/13/19 17:17 Last Admin: 09/13/19 17:23 Dose: 600 mg Potassium Chloride (Klor-Con M20) 40 meq PO ONETIME ONE Stop: 09/14/19 07:18 Last Admin: 09/14/19 07:34 Dose: 40 meq Potassium Chloride (Klor-Con M20) 40 meq PO ONETIME ONE Stop: 09/15/19 07:21 Last Admin: 09/15/19 07:47 Dose: 40 meq - Exam General: Alert, Oriented, Cooperative Lungs: Clear to Auscultation, Normal Respiratory Effort Cardiovascular: Regular Rate, Regular Rhythm GI/Abdominal Exam: Normal Bowel Sounds, Soft, Non-Tender Extremities: No Pedal Edema Skin: Rash (improving) Neurological: No New Focal Deficit Psy/Mental Status: Alert, Normal Affect, Normal Mood Sepsis Event Note - Evaluation Sepsis Screening Result: No Definite Risk - Focused Exam Vital Signs: Vital Signs Temp Temp Pulse Resp BP Pulse Ox 09/15/19 04:10 101.0 F H 101.0 F H 94 20 135/78 93 L 09/15/19 04:00 101.3 F H 94 20 135/78 93 L 09/15/19 00:17 100.9 F H 92 20 129/78 95 Date Exam was Performed: 09/15/19 Time Exam was Performed: 11:26 - Problem List Review Problem List Initiated/Reviewed/Updated: Yes - My Orders Last 24 Hours: My Active Orders 09/14/19 09:00 buPROPion [Wellbutrin SR] 150 mg PO BID 09/14/19 15:00 C DIFICILE TOXIN BY PCR CONF [MREF] Routine FECAL LACTOFERRIN [MREF] Routine STOOL CULTURE/SHIGA TOXIN [MREF] Routine 09/14/19 21:00 atorvaSTATin [Lipitor] 10 mg PO BEDTIME 09/15/19 09:00 Tamsulosin [Flomax] 0.4 mg PO DAILY - Plan Plan:: 1. Sepsis secondary to possible cellulitis and Cdiff infection- improving ( white count resolved but still spiking temps) -Chest CT did not show any pneumonia. Head CT was negative. US of lower extremities ruled out DVT. UA positive for ketones, no infection. Continue IV Vanco and Zosyn. Continue IVF. Started PO Vancomycin for diarrhea yesterday. Tylenol for fever. Blood cultures negative. Obtained CT ab/pelvis- it showed inflammation around kidney that could be pyelonephritis and it showed mesenteric infarct. Dr. Manjarrez, general surgery, consulted. 2. JALYN- resolved 3. Hypokalemia- will replace and recheck in AM 4. Hypomagnesemia- resolved
[2019-09-15] MEDS: Tamsulosin 0.4 MG Cap.ER PO SCH (09:06)
[2019-09-15] MEDS: Heparin Sodium 5,000 Units/ML Vial SUBCUT SCH ×2 (09:06→20:40)
[2019-09-15] MEDS: buPROPion 150 MG Tab.SR PO SCH ×2 (09:06→20:40)
--- NOTE | 2019-09-15 11:04 | CT ---
CT abdomen and pelvis Technique: Multiple axial sections were obtained from above the dome of the diaphragm inferiorly through the pubic symphysis. Intravenous and oral contrast has not been given. Comparison: Prior CT abdomen and pelvis exam of 10/29/17. Findings: Visualized lung bases show nothing acute. Fatty infiltration is seen within the liver. Spleen appears within normal limits. Adrenal glands show no nodule. Pancreas shows no discrete abnormality. Gallbladder is collapsed with no calcified gallstones. Aorta shows atherosclerotic calcification which continues into the iliac vessels without aneurysm. No retroperitoneal adenopathy or mesenteric abnormalities are seen. No pelvic mass or adenopathy is appreciated. Inflammatory change is noted within the right lower abdomen. This inflammatory change is an interval change from previous study. There are some mildly prominent lymph nodes in this area of inflammation. Findings could represent exophytic pyelonephritis off the lower right kidney. Small mesenteric infarction is also within the differential. Appendix is seen which is normal in size. No pelvic mass or adenopathy is noted. Bone window settings were reviewed which shows disc space narrowing at L5-S1 with spondylolytic defect is seen bilaterally causing mild spondylolisthesis. Impression: 1. Inflammatory change within the right lower abdomen. Several slightly enlarged lymph nodes in this area are seen. Uncertain as to etiology of this inflammatory change. Differential could include exophytic pyelonephritis off the right lower kidney as well as small mesenteric infarct. 2. Appendix is seen which is normal in size. 3. Other findings believed to be incidental and nonacute as described above. Diagnostic code #3 This report was dictated in MDT
[2019-09-15 11:32] LABS: BILIRUBIN INDIRECT 0.6
--- NOTE | 2019-09-15 12:38 | PCM.SN.2 ---
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
--- NOTE | 2019-09-15 19:27 | CONS ---
DATE OF CONSULTATION: 09/15/2019 DATE OF : 1960 PRIMARY CARE PHYSICIAN: Den Rincon M.D. REASON FOR CONSULTATION: Consult was called, and the patient was seen shortly after. Consulting question is mesenteric infarct per Radiology. HISTORY OF PRESENT ILLNESS: The patient is a 59-year-old morbidly obese gentleman, who was not feeling good and sought help in the emergency room for temperature of 103, and mental status change. Subsequent workup included CAT scan. CAT scan reading was noted to be right lower quadrant inflammatory change with normal appendix and differential is a small mesenteric infarction. Surgery was consulted for his management. The patient remarked that he has some diarrhea in the last couple of days, but other than that, denied chest pain, denied nausea or vomiting, denied any abdominal pain, denied bright red blood per rectum, denied black tarry stool, denied white stool, denied jaundice, and denied prior episode. FAMILY HISTORY: Noncontributory. ALLERGIES TO MEDICATIONS: Please refer to nursing for details. SURGICAL HISTORY: No abdominal surgery. PHYSICAL EXAMINATION: GENERAL: A very pleasant gentleman, sitting in chair, smiled to the doctor, very cooperating and very polite. HEENT: Normocephalic and atraumatic. Sclerae anicteric. LUNGS: Clear to auscultation. HEART: Regular rate and rhythm. ABDOMEN: Tight, obese, distended, but soft and nontender. Normal bowel sounds in all 4 quadrants. MUSCULOSKELETAL: There is some rash on the inner thigh of both legs with clear demarcation at the inguinal line, suggesting that the rash is probably due to the way the patient is sitting. Nontender. There is no calf tenderness. IMAGING: On admission workup, also had ultrasound that showed there was no DVT. 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 Called up Radiology, Dr. Price, who said it is highly unlikely just part of the differential, and he said it is not the mesenteric vein and it is not the mesenteric artery. He said it is some mesenteric fat around the kidney and it is very small. He does not think any angiogram at this stage would be helpful. In case there is any followup study, if anything interesting, may be repeat the CT abdomen and pelvis a week from today. In light of the situation, the patient never had abdominal pain and never had bright red blood per rectum and no dark stool, the patient can have supportive treatment. The patient does not have any surgical issue at this stage. To call if question. As always, thank you for the kind referral. KWABENA RDZ /[id number]
[2019-09-15] MEDS: atorvaSTATin 10 MG Tab PO SCH (20:40)
[2019-09-16] MEDS: Piperacillin/Tazobactam 3.375 GM in Sodium Chloride 0.9% 50 ML IV SCH ×2 (00:56→06:42)
[2019-09-16] MEDS: Sodium Chloride 0.9% 1,000 ML IV SCH (02:39)
[2019-09-16] MEDS: Vancomycin 125 MG Cap PO SCH (06:43)
[2019-09-16 08:03] LABS: BLOOD UREA NITROGEN,BUN 15 mg/dL (7.0-18.0); CARBON DIOXIDE,CO2 22.7 mmol/L (21.0-32.0); CHLORIDE,CL 104 mmol/L (98-107); GLUCOSE RANDOM 94 mg/dL (74-106); POTASSIUM,K 3.4 mmol/L (3.5-5.1); SODIUM,NA 136 mmol/L (136-148)
[2019-09-16 08:04] VITALS: PULSE 81
[2019-09-16] MEDS: buPROPion 150 MG Tab.SR PO SCH (08:37)
[2019-09-16] MEDS: Tamsulosin 0.4 MG Cap.ER PO SCH (08:37)
[2019-09-16] MEDS: Heparin Sodium 5,000 Units/ML Vial SUBCUT SCH (08:38)
--- NOTE | 2019-09-16 09:15 | PCM.DCSUM1 ---
Discharge Summary - Hospital Course HPI Initial Comments: Admission Date: 09/13/19 Discharge Date: 09/16/19 Admission Diagnosis: 1. Sepsis secondary to cellulitis 2. AMS 3. JALYN Discharge Diagnosis: 1. Sepsis secondary to cellulitis and Cdiff- resolved 2. AMS-resolved 3. JALYN-resolved 4. Hypokalemia-improved 5. Hypomagnesemia-resolved Procedures: None Consults: None Hospital Course: The patient is a 59 year old male with PMH of HTN, hyperlipidemia, sleep apnea, and depression who presented to the ER via EMS with AMS and temp of 103 and erythema of right inner thigh. In the ER, he had a temp of 102.1 which improved to 101.9 with Tylenol, ibuprofen, and cooling measures. ER reported that as his fever improved his altered mental status improved. He was also tachycardic and tachypneic. Work up revealed leukocytosis of 14.7 but lactate wnl. His ABG showed respiratory alkalosis. He had elevated Creatine of 1.5. Alcohol level was negative. COVID was negative. CXR showed calcification left upper chest that extended outside the chest, CT chest was recommended, as well as thickened area of atelectasis right mid lung. Head CT and Chest CT were negative for acute findings. In the ER he received a dose of Rocephin, Zosyn, and Vancomycin. The patient was admitted to the medical floor. He was continued on Zosyn and Vanco for suspected cellulitis. Patient continued to spike temps and have no significant improvement in white count. He then developed diarrhea. Cdiff was positive and he was started on PO Vancomycin. Further workup revealed no DVT and a CT ab /pelvis showed possible pyelonephritis and mesenteric infarct. Dr. Manjarrez, general surgery, was consulted. He reviewed the CT findings with the radiologist, and they believe it is a fat infarct and doesnt involve any vessel and it is the inflammation from this that looks like pyelonephritis. UA was negative for infection.. The patient never had abdominal pain. He was continued on IVF fluids and JALYN resolved. He had hypokalemia and hypomagnesemia, these were replaced and resolved. Over the course of his stay, his fever resolved, his white count resolved, cellulitis improved, he felt much better, and wanted to go home. Disposition: Home Discharge Condition: vitals stable, tolerating oral diet, ambulating without difficulty, symptom improvement Discharge Instructions: regular diet as tolerated, activity as tolerated, take medications as prescribed. Symptoms to report to physician include fever/chills , chest pain, shortness of breath, abdominal pain, erythema, drainage/discharge , or not improving as expected. Discharge Medications: atorvaSTATin [Lipitor] 10 mg PO BEDTIME buPROPion [Wellbutrin SR] 150 mg PO BID hydroCHLOROthiazide [Hydrochlorothiazide] 12.5 mg PO DAILY Tamsulosin [Flomax] 1 tab PO DAILY Sulfamethoxazole/Trimethoprim [Bactrim Ds Tablet] 1 each PO BID 5 Days Vancomycin 125 mg PO QID 8 Days Follow-up: PCP- Dr. Rincon - Discharge Data Discharge Date: 09/16/19 Discharge Disposition: Home, Self-Care 01 Condition: Stable - Referral to Home Health Primary Care Physician: Den Rincon MD - Patient Summary/Data Consults: Consultations 09/15/19 11:19 Consult to Physician [CONS] Routine - Discharge Plan Prescriptions/Med Rec: Sulfamethoxazole/Trimethoprim [Bactrim Ds Tablet] 1 each PO BID 5 Days #10 tablet Vancomycin 125 mg PO QID 8 Days #32 cap Home Medications: Home Meds atorvaSTATin [Lipitor] 10 mg PO BEDTIME 10/29/17 [History] buPROPion [Wellbutrin SR] 150 mg PO BID 10/29/17 [History] hydroCHLOROthiazide [Hydrochlorothiazide] 12.5 mg PO DAILY 10/29/17 [History] Tamsulosin [Flomax] 1 tab PO DAILY 09/14/19 [History] Sulfamethoxazole/Trimethoprim [Bactrim Ds Tablet] 1 each PO BID 5 Days #10 tablet 09/16/19 [Rx] Vancomycin 125 mg PO QID 8 Days #32 cap 09/16/19 [Rx] Patient Handouts: Cellulitis, Adult, [id number] Referrals: Den Rincon MD [Primary Care Provider] - 09/24/19 9:00 am - Discharge Summary/Plan Comment DC Time >30 min.: No - Patient Data Vitals - Most Recent: Last Vital Signs Temp 98.4 F 09/16/19 08:00 Pulse 81 09/16/19 08:00 Resp 20 09/16/19 08:00 BP 170/73 H 09/16/19 08:00 Pulse Ox 95 09/16/19 08:00 Weight - Most Recent: 108.6 kg I&O - Last 24 hours: Intake & Output 09/15/19 09/16/19 09/16/19 22:59 06:59 14:59 Intake Total 1637 Output Total 360 Balance 1277 Lab Results - Last 24 hrs: Laboratory Results - last 24 hr 09/15/19 09/16/19 09/16/19 Range/Units 04:52 07:23 07:23 WBC 8.56 (4.0-11.0) K/uL RBC 4.00 L (4.50-5.90) M/uL Hgb 12.7 L (13.0-17.0) g/dL Hct 37.6 L (38.0-50.0) % MCV 94.0 (80.0-98.0) fL MCH 31.8 (27.0-32.0) pg MCHC 33.8 (31.0-37.0) g/dL RDW Std Deviation 49.0 (28.0-62.0) fl RDW Coeff of Ba 14 (11.0-15.0) % Plt Count 121 L (150-400) K/uL MPV 10.50 (7.40-12.00) fL Neut % (Auto) 82.6 H (48.0-80.0) % Lymph % (Auto) 10.6 L (16.0-40.0) % Nuckolls % (Auto) 6.1 (0.0-15.0) % Eos % (Auto) 0.5 (0.0-7.0) % Baso % (Auto) 0.2 (0.0-1.5) % Neut # (Auto) 7.1 H (1.4-5.7) K/uL Lymph # (Auto) 0.9 (0.6-2.4) K/uL Nuckolls # (Auto) 0.5 (0.0-0.8) K/uL Eos # (Auto) 0.0 (0.0-0.7) K/uL Baso # (Auto) 0.0 (0.0-0.1) K/uL Nucleated RBC % 0.0 /100WBC Nucleated RBCs # 0 K/uL Sodium 136 (136-148) mmol/L Potassium 3.4 L (3.5-5.1) mmol/L Chloride 104 (98-107) mmol/L Carbon Dioxide 22.7 (21.0-32.0) mmol/L BUN 15 (7.0-18.0) mg/dL Creatinine 1.0 (0.8-1.3) mg/dL Est Cr Clr Drug Dosing 70.89 mL/min Estimated GFR (MDRD) > 60.0 ml/min Glucose 94 (74-106) mg/dL Calcium 7.7 L (8.5-10.1) mg/dL Total Bilirubin 0.8 (0.2-1.0) mg/dL Direct Bilirubin 0.20 (0.0-0.5) mg/dL Indirect Bilirubin 0.60 AST 50 H (15-37) IU/L ALT 52 (14-63) IU/L Alkaline Phosphatase 57 (46-116) U/L Total Protein 6.8 (6.4-8.2) g/dL Albumin 2.6 L (3.4-5.0) g/dL Globulin 4.2 H (2.6-4.0) g/dL Albumin/Globulin Ratio 0.6 L (0.9-1.6) JOELLE Results - Last 24 hrs: Microbiology 09/13/19 16:00 Aerobic Blood Culture - Preliminary Blood - Venous - Lab Draw NO GROWTH AFTER 2 DAYS Anaerobic Blood Culture - Preliminary NO GROWTH AFTER 2 DAYS 09/13/19 15:49 Aerobic Blood Culture - Preliminary Blood - Venous NO GROWTH AFTER 2 DAYS Anaerobic Blood Culture - Preliminary NO GROWTH AFTER 2 DAYS 09/15/19 11:35 Anaerobic Blood Culture - Final Blood - Venous - Lab Draw 09/15/19 11:18 Anaerobic Blood Culture - Final Blood - Venous Med Orders - Current: Current Medications Acetaminophen (Tylenol) 650 mg PO Q4H PRN PRN Reason: Pain/Fever Last Admin: 09/15/19 04:10 Dose: 650 mg Atorvastatin Calcium (Lipitor) 10 mg PO BEDTIME [facility] Last Admin: 09/15/19 20:40 Dose: 10 mg Bupropion HCl (Wellbutrin Sr) 150 mg PO BID [facility] Last Admin: 09/16/19 08:37 Dose: 150 mg Heparin Sodium (Porcine) (Heparin Sodium) 5,000 units SUBCUT BID [facility] Last Admin: 09/16/19 08:38 Dose: 5,000 units Piperacillin Sod/Tazobactam (Sod 3.375 gm/ Sodium Chloride) 50 mls @ 100 mls/ hr IV Q6H [facility] Last Admin: 09/16/19 06:42 Dose: 100 mls/hr Sodium Chloride (Normal Saline) 1,000 mls @ 125 mls/hr IV ASDIRECTED [facility] Last Admin: 09/16/19 02:39 Dose: 125 mls/hr Ondansetron HCl (Zofran) 4 mg IVPUSH Q4H PRN PRN Reason: Nausea/Vomiting Tamsulosin HCl (Flomax) 0.4 mg PO DAILY [facility] Last Admin: 09/16/19 08:37 Dose: 0.4 mg Vancomycin HCl (Pharmacy To Dose - Vancomycin) 1 dose .XX ASDIRECTED [facility] Vancomycin HCl (Vancomycin) 125 mg PO QID [facility] Last Admin: 09/16/19 06:43 Dose: 125 mg Discontinued Medications Heparin Sodium (Porcine) (Heparin Sodium) 5,000 units SUBCUT Q12H [facility] Last Admin: 09/13/19 22:25 Dose: Not Given Acetaminophen 1,000 mg/ Premix 100 mls @ 400 mls/hr IV NOW ONE Stop: 09/13/19 16:04 Last Admin: 09/13/19 16:25 Dose: 400 mls/hr Sodium Chloride (Normal Saline) 1,000 mls @ 999 mls/hr IV .BOLUS ONE Stop: 09/13/19 16:49 Last Admin: 09/13/19 16:25 Dose: 999 mls/hr Ceftriaxone Sodium 1 gm/ (Sodium Chloride) 50 mls @ 100 mls/hr IV Q24H [facility] Last Admin: 09/13/19 17:23 Dose: 100 mls/hr Piperacillin Sod/Tazobactam (Sod 3.375 gm/ Sodium Chloride) 50 mls @ 100 mls/ hr IV ONETIME ONE Stop: 09/13/19 18:07 Last Admin: 09/13/19 19:15 Dose: 100 mls/hr Vancomycin HCl 2 gm/ Sodium (Chloride) 500 mls @ 333.333 mls/hr IV Q24H [facility] Last Admin: 09/13/19 20:06 Dose: 333.333 mls/hr Vancomycin HCl 1.5 gm/ Premix 300 mls @ 200 mls/hr IV Q24H [facility] Last Admin: 09/14/19 19:59 Dose: 200 mls/hr Magnesium Sulfate 4 gm/ Premix 100 mls @ 50 mls/hr IV ONETIME ONE Stop: 09/14/19 10:35 Last Admin: 09/14/19 09:00 Dose: 50 mls/hr Ibuprofen (Motrin) 600 mg PO ONETIME ONE Stop: 09/13/19 17:17 Last Admin: 09/13/19 17:23 Dose: 600 mg Potassium Chloride (Klor-Con M20) 40 meq PO ONETIME ONE Stop: 09/14/19 07:18 Last Admin: 09/14/19 07:34 Dose: 40 meq Potassium Chloride (Klor-Con M20) 40 meq PO ONETIME ONE Stop: 09/15/19 07:21 Last Admin: 09/15/19 07:47 Dose: 40 meq
[2019-09-16] MEDS ORDERED: Potassium Chloride 20 MEQ Tab.ER PO ONE (09:18)
[2019-09-16] MEDS ORDERED: Hydrochlorothiazide 12.5 MG Cap PO SCH (10:30)
[2019-09-16 11:01] VITALS: BP 140/88
== END 2019-09-16 11:30 | disposition home or self-care (01) | DRG 720 ==
LOC: MW.ED 15:44 → MW.MS 19:51
PROVIDERS: ADMIT Student in an Organized Health Care Education/Training Program; ATTEND Student in an Organized Health Care Education/Training Program
DX: A41.9 Sepsis, unspecified organism (principal); N17.9 Acute kidney failure, unspecified; L03.115 Cellulitis of right lower limb; E87.6 Hypokalemia; E83.42 Hypomagnesemia; I10 Essential (primary) hypertension; E78.5 Hyperlipidemia, unspecified; G47.30 Sleep apnea, unspecified; F32.9 Major depressive disorder, single episode, unspecified; E87.3 Alkalosis; B96.89 Other specified bacterial agents as the cause of diseases classified elsewhere; H91.90 Unspecified hearing loss, unspecified ear; H54.7 Unspecified visual loss; E78.00 Pure hypercholesterolemia, unspecified; M19.90 Unspecified osteoarthritis, unspecified site; E66.9 Obesity, unspecified; Z79.899 Other long term (current) drug therapy; Z97.4 Presence of external hearing-aid; Z99.81 Dependence on supplemental oxygen; Z86.010 Personal history of colon polyps; Z68.36 Body mass index [BMI] 36.0-36.9, adult
CPT/HCPCS: 36415; 36600; 70450; 70450-26; 71045; 71045-26; 71250; 71250-26; 74176; 74176-26; 80048; 80053; 80076; 80307; 81001; 82803; 83605; 83630; 83735; 85025; 87040; 87045; 87046; 87077; 87186; 87324; 87493; 87899; 93005; 93970; 93970-26; 94660; 96361; 96365; 96367; 96375; 99285-25; A9270-GY; J0131; J0696; J1644; J2543; J3370; J3475; J7030; J7040; J7050; U0002

== ENCOUNTER 2021-04-17 13:40 | Emergency (ER) | payer SELFPAY ==
--- NOTE | 2021-04-17 13:42 | EDM.PDOC ---
ED HPI GENERAL MEDICAL PROBLEM - General Stated Complaint: R EAR FO STUCK Time Seen by Provider: 04/17/21 13:41 Source of Information: Reports: Patient History Limitations: Reports: No Limitations - History of Present Illness INITIAL COMMENTS - FREE TEXT/NARRATIVE: 61-year-old male presents for foreign body to right ear. Patient was seen at walk-in clinic and referred to the emergency department as they were unable to remove the object from the ear. Patient notes it has been there for about 1- month. No other complaints. - Related Data Allergies Allergy/AdvReac Type Severity Reaction Status Date / Time No Known Allergies Allergy Verified 09/13/19 21:41 Home Meds: Home Meds atorvaSTATin [Lipitor] 10 mg PO BEDTIME 10/29/17 [History] buPROPion [Wellbutrin SR] 150 mg PO BID 10/29/17 [History] hydroCHLOROthiazide [Hydrochlorothiazide] 12.5 mg PO DAILY 10/29/17 [History] Tamsulosin [Flomax] 1 tab PO DAILY 09/14/19 [History] Sulfamethoxazole/Trimethoprim [Bactrim Ds Tablet] 1 each PO BID 5 Days #10 tablet 09/16/19 [Rx] Vancomycin [Vancocin 125 MG Capsule] 125 mg PO QID 8 Days #32 cap 09/16/19 [Rx] Hydrocort/Neomycin/Polymyxin B [Lfvydecu-Aydnvivwq-WL Otic Susp] 10 ml EARRT TID 7 Days #1 bottle 04/17/21 [Rx] Past Medical History HEENT History: Reports: Hard of Hearing, Impaired Vision Other HEENT History: wears glasses, cathy hearing aids Cardiovascular History: Reports: High Cholesterol, Hypertension Respiratory History: Reports: Sleep Apnea Other Respiratory History: uses CPAP Gastrointestinal History: Reports: Colon Polyp Genitourinary History: Reports: None Musculoskeletal History: Reports: Osteoarthritis Neurological History: Reports: None Psychiatric History: Reports: Depression Endocrine/Metabolic History: Reports: Obesity/BMI 30+ Hematologic History: Reports: None Immunologic History: Reports: None Oncologic (Cancer) History: Reports: None Dermatologic History: Reports: Psoriasis - Infectious Disease History Infectious Disease History: Reports: Chicken Pox, Measles - Past Surgical History Head Surgeries/Procedures: Reports: None HEENT Surgical History: Reports: None Cardiovascular Surgical History: Reports: None Respiratory Surgical History: Reports: None GI Surgical History: Reports: Colonoscopy Male Surgical History: Reports: None Endocrine Surgical History: Reports: None Neurological Surgical History: Reports: None Musculoskeletal Surgical History: Reports: None Oncologic Surgical History: Reports: None Dermatological Surgical History: Reports: None Social & Family History - Family History Family Medical History: No Pertinent Family History - Caffeine Use Caffeine Use: Reports: Coffee ED ROS GENERAL - Review of Systems Review Of Systems: Comprehensive ROS is negative, except as noted in HPI. ED EXAM, GENERAL - Physical Exam Exam: See Below Exam Limited By: No Limitations General Appearance: Alert, WD/WN, No Apparent Distress Ears: Hearing Grossly Normal, Other (FB noted to be stuck in R EAC consistent with impacted hearing aide ) Throat/Mouth: Normal Voice, No Airway Compromise Head: Atraumatic, Normocephalic Respiratory/Chest: No Respiratory Distress, No Accessory Muscle Use Cardiovascular: Normal Peripheral Pulses Extremities: Normal Inspection Neurological: Alert, Normal Cognition, Normal Gait Psychiatric: Normal Affect, Normal Mood Skin Exam: Warm, Dry, Intact, Normal Color Course - Re-Assessments/Exams Free Text/Narrative Re-Assessment/Exam: 04/17/21 14:00 R ear FB removed utilizing alligator forceps. Will d/c with antibiotic drops for prophylaxis against infection. Departure - Departure Time of Disposition: 14:01 Disposition: DC/Tfer to [facility] [id number] Condition: Good Clinical Impression: Foreign body of ear, right Qualifiers: Encounter type: initial encounter Qualified Code(s): T16.1XXA - Foreign body in right ear, initial encounter - Discharge Information Instructions: Ear Foreign Body Additional Instructions: Antibiotic drops sent to [place] pharmacy which is in the back-right corner of [facility]. Follow-up with your doctor to have your hearing aides refitted. Do not stick anything in your ear for the next week until you are done with the antibiotic drops. The following information is given to patients seen in the emergency department who are being discharged to home. This information is to outline your options for follow-up care. We provide all patients seen in our emergency department with a follow-up referral. The need for follow-up, as well as the timing and circumstances, are variable depending upon the specifics of your emergency department visit. If you don't have a primary care physician on staff, we will provide you with a referral. We always advise you to contact your personal physician following an emergency department visit to inform them of the circumstance of the visit and for follow-up with them and/or the need for any referrals to a consulting specialist. The emergency department will also refer you to a specialist when appropriate. This referral assures that you have the opportunity for follow-up care with a specialist. All of these measure are taken in an effort to provide you with optimal care, which includes your follow-up. Under all circumstances we always encourage you to contact your private physician who remains a resource for coordinating your care. When calling for follow-up care, please make the office aware that this follow-up is from your recent emergency room visit. If for any reason you are refused follow-up, please contact the [facility] Emergency Department at and asked to speak to the emergency department charge nurse. Please follow up with your primary care physician. If you do not have a primary care physician, see below: [facility] [address] [place] [id number] [facility] [address] [place] [address] [facility] [address] [place] [id number]
[2021-04-17 14:12] VITALS: BP 156/57; PULSE 73
== END 2021-04-17 14:13 | disposition home or self-care (01) ==
LOC: MW.ED 13:40
DX: T16.1XXA Foreign body in right ear, initial encounter (principal); E78.00 Pure hypercholesterolemia, unspecified; I10 Essential (primary) hypertension; E66.9 Obesity, unspecified; Z68.43 Body mass index [BMI] 50.0-59.9, adult; Z79.899 Other long term (current) drug therapy
CPT/HCPCS: 69210; 99284-25

== ENCOUNTER 2022-07-20 02:34 | Observation (INO) | payer BC ==
[2022-07-20] MEDS ORDERED: methylPREDNISolone Sodium Succinate 125 MG/2 ML SDV IVPUSH ONE (02:47)
[2022-07-20] MEDS ORDERED: Albuterol/Ipratropium 3.0-0.5 MG/3 ML Neb Soln NEB ONE (02:47)
[2022-07-20] MEDS ORDERED: Furosemide 40 MG/4 ML VIAL IVPUSH ONE (02:57)
[2022-07-20 03:20] LABS: CARBON DIOXIDE,CO2 28.6 mmol/L (21.0-32.0); POTASSIUM,K 3.7 mmol/L (3.5-5.1)
[2022-07-20 03:30] LABS: CORONAVIRUS COVID-19 NAA NEGATIVE (NEGATIVE); INFLUENZA A NAA NEGATIVE (NEGATIVE); INFLUENZA B NAA NEGATIVE (NEGATIVE)
[2022-07-20] MEDS ORDERED: Albuterol/Ipratropium 3.0-0.5 MG/3 ML Neb Soln NEB PRN (06:00)
[2022-07-20] MEDS ORDERED: Acetaminophen 325 MG/10.15 ML ML PO PRN (06:10)
[2022-07-20] MEDS ORDERED: Acetaminophen 325 MG Tab PO PRN (06:16)
[2022-07-20] MEDS: methylPREDNISolone Sodium Succinate 40 MG/1 ML SDV IVPUSH SCH ×2 (08:16→20:08)
[2022-07-20] MEDS: Losartan 50 MG Tab PO SCH (11:29)
[2022-07-20] MEDS: cefTRIAXone 1 GM in Sodium Chloride 0.9% 50 ML IV SCH (11:29)
[2022-07-20] MEDS: buPROPion 150 MG Tab.SR PO SCH ×2 (11:29→20:08)
[2022-07-20] MEDS: Enoxaparin 40 MG/0.4 ML Syringe SUBCUT SCH (11:31)
[2022-07-20] MEDS: Tamsulosin 0.4 MG Cap.ER PO SCH (11:38)
[2022-07-20] MEDS: Albuterol/Ipratropium 3.0-0.5 MG/3 ML Neb Soln NEB SCH ×2 (12:42→17:47)
[2022-07-20] MEDS ORDERED: atorvaSTATin 10 MG Tab PO SCH (21:00)
[2022-07-21] MEDS: Albuterol/Ipratropium 3.0-0.5 MG/3 ML Neb Soln NEB SCH ×2 (00:04→06:55)
[2022-07-21 06:52] LABS: CARBON DIOXIDE,CO2 25.2 mmol/L (21.0-32.0); POTASSIUM,K 4.2 mmol/L (3.5-5.1)
[2022-07-21 08:04] VITALS: PULSE 68
[2022-07-21] MEDS: Losartan 50 MG Tab PO SCH (08:24)
[2022-07-21] MEDS: buPROPion 150 MG Tab.SR PO SCH (08:24)
[2022-07-21] MEDS: Tamsulosin 0.4 MG Cap.ER PO SCH (08:24)
[2022-07-21] MEDS: methylPREDNISolone Sodium Succinate 40 MG/1 ML SDV IVPUSH SCH (08:24)
[2022-07-21] MEDS: cefTRIAXone 1 GM in Sodium Chloride 0.9% 50 ML IV SCH (11:41)
[2022-07-21] MEDS: Enoxaparin 40 MG/0.4 ML Syringe SUBCUT SCH (11:41)
[2022-07-21 12:00] VITALS: BP 152/68
[2022-07-21] MEDS ORDERED: Albuterol 0.083% 2.5 MG/3 ML Neb Soln INH SCH (12:00)
[2022-07-21] MEDS ORDERED: Ipratropium 0.02% 0.5 MG/2.5 ML Neb Soln INH SCH (12:00)
== END 2022-07-21 13:30 | disposition home or self-care (01) ==
LOC: MW.ED 02:34 → MW.MS 03:53
PROVIDERS: ADMIT Internal Medicine; ATTEND Internal Medicine
DX: J44.1 Chronic obstructive pulmonary disease with (acute) exacerbation (principal); I10 Essential (primary) hypertension; F32.A Depression, unspecified; E78.5 Hyperlipidemia, unspecified; E78.00 Pure hypercholesterolemia, unspecified; G47.33 Obstructive sleep apnea (adult) (pediatric); E66.01 Morbid (severe) obesity due to excess calories; Z20.822 Contact with and (suspected) exposure to COVID-19; Z79.899 Other long term (current) drug therapy; Z68.43 Body mass index [BMI] 50.0-59.9, adult
CPT/HCPCS: 0240U; 36415; 71045; 80048; 80053; 82803; 83735; 83880; 84484; 85025; 85610; 85730; 94640; A9270; J0696; J1650; J1940; J2920; J2930; J7050; 96365; 96372; 96374; 96375; 96376; 99284; 99285-25; G0378; J3490; J7620-GY

== ENCOUNTER 2024-06-08 08:34 | Emergency (ER) | payer MEDICARE, BC ==
[2024-06-08 10:49] VITALS: BP 142/71; PULSE 82
== END 2024-06-08 10:48 | disposition home or self-care (01) ==
LOC: MW.ED 08:34
DX: M25.561 Pain in right knee (principal); I10 Essential (primary) hypertension; J44.9 Chronic obstructive pulmonary disease, unspecified; E78.00 Pure hypercholesterolemia, unspecified; E66.9 Obesity, unspecified; Z86.16 Personal history of COVID-19; Z79.899 Other long term (current) drug therapy; Z68.42 Body mass index [BMI] 45.0-49.9, adult
CPT/HCPCS: 36415; 73562-26-RT; 73562-RT; 85379; 99283